=== PATIENT | female | born 1950 | race Caucasian/White ===

== ENCOUNTER 2020-11-03 18:16 | Inpatient (IN) | payer MEDICARE, SELFPAY ==
[2020-11-03] VITALS (8 sets, daily range): BP systolic 92–118; BP diastolic 45–80; PULSE 66–95; RESP 14–18; TEMP 36.6–36.8; O2SAT 95–100; BMI 28.8
--- NOTE | ~2020-11-03 | XR_ITS ---
EXAMINATION: XR shoulder RT min 2V DATE: 11/05/2020 17:19 INDICATION: TECHNIQUE: AP internally and externally rotated, AP oblique externally rotated and transscapular Y vi ews of the right shoulder were obtained. COMPARISON: None FINDINGS: There is mild cephalad subluxation of the right humeral head resulting in narrowing of the subacromia l space to <2 mm on one of the frontal projections consistent with rotator cuff tear. This likely chr onic given the reciprocal remodeling along the undersurface of the acromion and cephalad aspect of th e humeral head which appears slightly flattened with subarticular sclerosis and cystic change. Modera te-sized marginal osteophytes along the inferior aspect of the humeral head and at the glenoid. There are also moderate-sized subacromial spurs. Moderate right acromioclavicular osteoarthritis. Suggesti on of loose osteochondral bodies at the deep subscapular recess. No fracture.Small right lung volume with opacities at the lung bases which could represent atelectasis and/or pneumonia. Partially visual ized cardiac pacemaker leads at the superior vena cava. IMPRESSION: Right rotator cuff arthropathy with severe glenohumeral osteoarthritis. Reviewed, dictated and finalized at location A. ARCH INVESTIGATOR
--- NOTE | ~2020-11-03 | XR_ITS ---
XR chest 1V portable 11/03/2020 18:59 Indication: Patient unresponsive. Respiratory distress. Procedure: AP view of the chest Comparison: No prior studies for comparison. Findings: Elevated right diaphragm. Cardiomegaly. Pacemaker leads in expected position. No focal air space disease, pulmonary edema, pleural effusion or suspected pneumothorax. Impression: 1: No acute cardiopulmonary disease. Reviewed, dictated and finalized at location A. UTER CUSTOMER SUPPORT SPECIALIST Impression: 1: No acute cardiopulmonary disease.
--- NOTE | ~2020-11-03 | CT_ITS ---
EXAMINATION: CT BRAIN W/O DATE: 11/03/2020 19:06 INDICATION: Patient unresponsive. TECHNIQUE: Computed tomography (CT) of the head was performed without intravenous contrast. The dose- length product was 605.33 mGy-cm. COMPARISON: No prior studies for comparison. FINDINGS: Study limited by motion artifact. Normal brain parenchymal volume for age. Normal johnson-whit e differentiation. No acute intracranial hemorrhage, infarction, mass or mass effect. No ventriculomegaly or midline shift. Midline sagittal images demonstrate a normal corpus callosum, c raniovertebral junction and sella turcica. Basilar cisterns are patent. There is mucosal thickening of the maxillary, sphenoid and ethmoid sinuses. Mastoids are pneumatized. IMPRESSION: 1. No acute intracranial abnormality. 2: Moderate sinusitis. Reviewed, dictated and finalized at location A. ICE CLINICAL MARKETER
--- NOTE | ~2020-11-03 | US_ITS ---
US right upper quadrant 11/04/2020 11:08 Indication: Gallbladder distention. Elevated alkaline phosphatase. Procedure: High-resolution Limited abdominal ultrasound Comparison: No prior studies for comparison. Findings: There are gallstones. No gallbladder wall thickening or pericholecystic fluid. There is gal lbladder sludge. No significant biliary dilatation. CBD measures 3.4 mm. There is antegrade flow in t he portal vein. The pancreas and liver within normal limits. IVC and abdominal aorta within normal li mits. There is right renal atrophy. Small right renal cysts are noted. Impression: 1: Gallbladder contains stones and sludge. If there is concern for cholecystitis, consider correlatio n with nuclear hepatobiliary scan. Reviewed, dictated and finalized at location B. UCTION PACKAGER Impression: 1: Gallbladder contains stones and sludge. If there is concern for cholecystiti s, consider correlation with nuclear hepatobiliary scan.
--- NOTE | ~2020-11-03 | CT_ITS ---
EXAMINATION: CT abdomen pelvis wo con DATE: 11/03/2020 21:16 INDICATION: Possible pelvic fracture. Abdomen pain. TECHNIQUE: Computed tomography (CT) of the abdomen and pelvis was performed without intravenous contr ast. The dose-length product was 1243.83 mGy-cm. Automated exposure control and iterative reconstruct ion technique were employed. COMPARISON: None. FINDINGS: Lung bases are unremarkable. No pleural or pericardial effusion. Cardiomegaly. Gallbladder is distended and contains high density material which may represent sludge or stones. There are multi ple low-density lesions in both kidneys, not adequately characterized without contrast. Consider wen elation with ultrasound. Right kidney is atrophic. There is a nonobstructing right renal stone. Nonob structive bowel gas pattern. There is a left common iliac vein stent. There is Be catheter present in the bladder. There are bilateral sacral insufficiency fractures. Moderate lumbar spondylosis with grade 1 degenerative spondylolisthesis at L4-5. IMPRESSION: 1. Bilateral sacral insufficiency fractures. 2: Dilated gallbladder containing dependent high density material which may represent sludge or stone s. 3: Nonobstructing right nephrolithiasis. Reviewed, dictated and finalized at location A. UNTS OFFICER IMPRESSION: 1. Bilateral sacral insufficiency fractures. 2: Dilated gallbladder containing dependent high density material which may rep resent sludge or stones. 3: Nonobstructing right nephrolithiasis.
--- NOTE | 2020-11-03 18:20 | ECG_ITS ---
Measurements Intervals [place] Rate: 80 P: 107 UT: 162 QRS: -13 QRSD: 104 T: 2 QT: 389 QTc: 450 Interpretive Statements ELECTRONIC ATRIAL PACEMAKER BORDERLINE T WAVE ABNORMALITY- INFERIOR LEADS BASELINE WANDER- II, III BORDERLINE ECG Electronically Signed On 11-04-2020 6:59:36 NAMED ACCOUNT EXECUTIVE by Telly Pollack D.O.
[2020-11-03 18:37] LABS: Alveolar/Arterial O2 Gradient 6.1 mmHg; Base Excess ABG -3.5 mEq/l (+/-2.0); Fractional Inspired Oxygen 21 %; HCO3 ABG 20.3 mEq/l (22.0-26.0); Oxygen Content ABG 14.5 %vol (16.0-22.0); Oxyhemoglobin 96.8 % THb (90.0-100.0); PCO2 ABG 32.2 mmHg (35.0-45.0); PO2 ABG 105.1 mmHg (80.0-100.0); Total Hemoglobin 10.5 g/dL (12.0-18.0); pH ABG 7.417 (7.350-7.450)
[2020-11-03] MEDS: SODIUM CHLORIDE 0.9% IV 1,000 ML 999 ML IV CONT ×2 (18:37→19:57)
--- NOTE | 2020-11-03 18:37 | PC.NURSE ---
fluids continued from EMS
[2020-11-03 18:38] LABS: Device ROOM AIR; Modified Allen's Test Pass; Site Drawn LEFT RADIAL
[2020-11-03 18:43] LABS: Basophils Percent Auto 0.3 % (0.2-1.2); Eosinophils Absolute Auto 0.2 K/mm3 (0-0.3); Eosinophils Percent Auto 2.5 % (0-4.4); Hematocrit 31.1 % (37.0-47.0); Hemoglobin 9.6 g/dL (12.0-15.0); Immature Granulocyte Absolute 0.02 K/mm3 (0.00-0.031); Immature Granulocyte Percent A 0.3 % (0-0.5); Lymphocytes Absolute Auto 1.01 K/mm3 (0.9-3.2); Lymphocytes Percent Auto 13.5 % (18.3-44.2); Mean Corpuscular HGB Conc 30.9 g/dl (32-36); Mean Corpuscular Hemoglobin 31.7 pg (26-34); Mean Corpuscular Volume 102.6 fl (80-100); Mean Platelet Volume 10.2 fl (7.4-10.4); Monocytes Absolute Auto 0.5 K/mm3 (0.1-0.6); Monocytes Percent Auto 7.2 % (2.6-8.5); Neutrophils Absolute Auto 5.7 K/mm3 (1.3-6.7); Neutrophils Percent Auto 76.2 % (45.5-73.1); Platelet Count Result 312 k/mm3 (150-375); Red Blood Count 3.03 M/mm3 (4.2-5.4); Red Cell Distribution Width 15.2 % (11.5-14.5); White Blood Count 7.5 K/mm3 (4.5-10.0)
[2020-11-03 18:44] LABS: Glucose Point of Care 88 (65-105)
[2020-11-03 18:53] LABS: INR 1.2; Prothrombin Time 15.9 Seconds (11.1-14.7)
[2020-11-03 18:54] LABS: Lactic Acid Reflex 0.9 mmol/L (0.7-2.1); Partial Thromboplastin Time 30.6 SECONDS (22.3-36.8)
[2020-11-03 18:55] LABS: Alanine Aminotransferase 15 U/L (4-35); Albumin Level 3.5 g/dL (3.5-5.1); Alkaline Phosphatase 170 U/L (38-126); Anion Gap 8 mmol/L (8-16); Aspartate Amino Transferase 25 U/L (14-36); Bilirubin,Total 0.4 mg/dL (0.2-1.3); Blood Urea Nitrogen 52 mg/dL (7-17); Calcium 8.9 mg/dL (8.4-10.2); Carbon Dioxide 25 mmol/L (22-30); Chloride 111 mmol/L (98-107); Estimated Glomerular Filt Rate 28; Glucose 96 mg/dL (65-105); Potassium 4.8 mmol/L (3.4-5.0); Sodium 144 mmol/L (137-145)
--- NOTE | 2020-11-03 18:56 | ED.AMS ---
HPI - Altered Mental Status General Chief Complaint: Altered Mental Status Stated Complaint: unresponsive Time Seen by Provider: 11/03/20 18:20 Source: family (son) and EMS Mode of arrival: EMS Limitations: clinical condition History of Present Illness HPI narrative: This patient is a 70 year old female with history of restless leg syndrome who presents from [facility] for evaluation of unresponsiveness. Patient was released to [place] 3 days ago from [place]. Her son is at bedside to provide history. He states patient has been having alot of back pain so she went to [facility] 1 week ago. She was found to have urinary retention, sciatica and pelvic fractures. He states she was kept in the hospital for a few days. She has been taking tramadol and hydrocodone 10 mg for pain at the [place] [facility]. EMS reports patient was last normal at noon today. Nursing staff reported patient was unresponsive to them. She was started on these pain medications 3 days ago. On EMS arrival patient, had slow respirations and unresponsive. EMS gave patient 2 mg narcan and she became responsive to pain. Related Data Home Medications Medication Instructions Recorded Confirmed albuterol sulfate [Ventolin HFA] 2 puff INHALATION QID PRN 11/03/20 alendronate 70 mg PO WEEKLY 11/03/20 apixaban 5 mg PO HS 11/03/20 atorvastatin 40 mg PO HS 11/03/20 baclofen 20 mg PO TID 11/03/20 bisacodyl 10 mg RECTAL DAILY PRN 11/03/20 calcium carbonate-vitamin D3 1 tablet PO DAILY 11/03/20 ciprofloxacin HCl 500 mg PO Q12H 11/03/20 cyclobenzaprine 10 mg PO TID 11/03/20 fluticasone propionate [Flovent 1 puff INHALATION Q12H 11/03/20 HFA] furosemide 20 mg PO DAILY 11/03/20 gabapentin 300 mg PO TID 11/03/20 gemfibrozil 600 mg PO BID 11/03/20 glucosamine sulfate 500 mg PO DAILY 11/03/20 hydrocodone-acetaminophen 1 tablet PO Q6H PRN 11/03/20 ketorolac 10 mg PO Q6H PRN 11/03/20 losartan 50 mg PO DAILY 11/03/20 magnesium citrate [Citroma] 150 ml PO DAILY PRN 11/03/20 magnesium hydroxide [Milk of 15 ml PO DAILY PRN 11/03/20 Magnesia] raloxifene [Evista] 60 mg PO DAILY 11/03/20 sodium phosphates [Fleet Enema] 118 ml RECTAL ONCE 11/03/20 ticagrelor 90 mg PO Q12H 11/03/20 tramadol 50 mg PO Q6H PRN 11/03/20 Allergies Allergy/AdvReac Type Severity Reaction Status Date / Time SAM Inhibitors Allergy Unknown Verified 11/03/20 18:25 erythromycin base Allergy Unknown Verified 11/03/20 18:25 sulfamethizole Allergy Unknown Verified 11/03/20 18:25 Review of Systems Review of Systems: ROS unobtainable: Yes unobtainable due to mental status [facility] Past Medical History Medical History (Updated 11/03/20 @ 23:34 by Sloane Hay MD) Asthma Atrial fibrillation On chronic anticoagulation with Eliquis Essential hypertension Hyperlipidemia Hypertension Hypertriglyceridemia Post-menopausal osteoporosis Social History Social History Gender identity (if verbalized by the patient): Female Exam Const: General: ill appearing Limitations: altered mental status HENMT: Head: normocephalic and atraumatic Face and sinus: face symmetric and dry mucous membranes Mouth: Yes dry mucous membranes Eyes: Pupils: Equal, round and reactive pupils present EOM: EOMs intact bilaterally Resp: Effort & Inspection: normal respiratory effort and no retractions Auscultation: clear to auscultation bilaterally Cardio: Rate: regular rate Rhythm: regular rhythm Heart sounds: no murmurs GI: GI Palp: Yes Soft to palpation, No Tenderness to palpation present (GI) and No Guarding due to palpation present (GI) Auscultation: normal bowel sounds Neuro: General: moves all extremities Other: Patient will look at you when call her name. She appears to be in pain Extrem: Other: moves all extremities Course Reevaluation(s) Reevaluation #1: PAtient's son is at bedside. I discussed patient will be admitted. She will not answer questions but she is
[2020-11-03 19:06] LABS: Troponin I 0.017 ng/mL (0.000-0.034)
[2020-11-03 19:09] LABS: Acetaminophen < 10 ug/mL (10-30); Ammonia < 9 umol/L (9-30); Ethanol < 10 mg/dL (<10)
[2020-11-03 19:34] LABS: Add Urine Microscopic? YES; Appearance Urine Cloudy (Clear); Bacteria Urine Trace /hpf; Bilirubin Urine Negative (Negative); Blood Urine Negative (Negative); Color Urine Yellow (Yellow); Glucose Urine UA Negative (Negative); Hyaline Casts Urine 30-49 /lpf; Ketones Urine Negative (Negative); Leukocyte Esterase Ur Negative LEU/UL (Negative); Mucus Urine Rare /lpf; Nitrate Urine Negative (Negative); Protein Urine 1+ mg/dL (Negative); RBC Urine 0-2 /hpf (0-2); Specific Grav Ur 1.016 (1.001-1.035); Squamous Epithelial Cell Urine Moderate /hpf (Few); Urobilinogen Urine Negative mg/dL (<2.0)
[2020-11-03 19:52] LABS: Amphetamine Screen Urine Negative (Negative); Barbiturate Screen Urine Negative (Negative); Benzodiazepines Screen Urine Negative (Negative); Cannabinoid Screen Urine Negative (Negative); Cocaine Screen Urine Negative (Negative); Methadone Screen Urine Negative (Negative); Opiate Screen Urine Positive (Negative); Phencyclidine Screen Urine Negative (Negative)
--- NOTE | 2020-11-03 21:08 | PC.NURSE ---
pt to CT at this time
--- NOTE | 2020-11-03 23:13 | PM.IMHP ---
H&P: HPI History of Present Illness Date/Time: 11/03/20 23:13 Chief Complaint: Altered mental status Narrative: Arin Mcmillan is a 70 year old female On chronic anticoagulation, hypertension, osteoporosis and recent sacral insufficiency fractures due to fall who presented to the ER via EMS from [facility] due to altered mental status. The patient was found lying in bed unresponsive to pain. Her last known well well was around 10:00 a.m.. The patient had recently been started on tramadol, baclofen, [place] 10, Flexeril and Neurontin and Toradol due to sacral insufficiency fractures and sciatica. The patient had been started on tramadol 50 mg on 10/16/2020, Flexeril 10/17/2020, Medrol Dosepak 10/20/2020, [place] 5/325 10/20/2020, Neurontin 300 mg t.i.d. 10/22/2019 an baclofen 20 mg q.8 hours scheduled from 10/25/2020. [facility] at the to October and was discharged to [facility] about 3 days ago. When she was discharged from was was clear she was discharged with all of the above medications. The patient's son told the ER staff that when he called his mother the night before she seemed to be hallucinating. He mention this to the long-term staff but did not receive much of response. When patient arrived to the ER she was having what appeared to be agonal respirations. The patient received 2 mg of Narcan with improved responses. She was responding to painful stimuli in the ER. When I arrived at her bedside for evaluation the patient was noted to have prolonged episodes of apnea. She was having 15-20 second apneic episodes. She would awake briefly to loud verbal stimuli and provide one-word answers. She knew her name and the current month but thought the year was 2011. The next time she woke up she perseverated on it being 2011. After multiple attempts she did tell me that she has history of obstructive sleep apnea but did not tell me if she wore CPAP. I ordered an additional dose of Narcan 1 mg as patient was having continued apneas and given her degree of somnolence. An order was placed for stat CPAP. With auto titrating CPAP patient had reached maximum values on the CPAP machine. When the CPAP was maximized the patient did and was quite agitated and crying out in trying to remove the CPAP but she was not coordinated enough to reach the CPAP. Her speech was intermittently garbled. The patient was crying out in pain at this point after and Narcan had been administered. Patient was no longer having any other apneic episodes and CPAP was placed on hold. The patient remains awake and is moaning and restless. She is still confused. She is unable to tell me where she is having pain. The patient had urinary retention during her hospitalization at [facility]. She was found to have urinary retention on arrival to the ER as well. Be catheter was placed. Review of Systems Review of Systems: ROS unobtainable: Yes unobtainable due to medical condition (Toxic encephalopathy) [facility] Past Medical History Medical History (Updated 11/04/20 @ 01:23 by Libra Garcia DO) Asthma Atrial fibrillation On chronic anticoagulation with Eliquis CHF (congestive heart failure) Essential hypertension Hyperlipidemia Hypertension Hypertriglyceridemia Post-menopausal osteoporosis Surgical History Surgical History (Updated 11/04/20 @ 01:31 by Libra Garcia DO) History of permanent cardiac pacemaker placement History of shoulder surgery Left shoulder Family History Family History (Updated 11/04/20 @ 01:22 by Libra Garcia DO) Other Unknown family medical history Social History Social History (Updated 11/03/20 @ 23:34 by Libra Garcia DO) Social History: Primary care physician: Dr. Mario Gama Code status: Full code per EMR Gender identity (if verbalized by the patient): Female Meds Home Medications and Allergies Home Medications Medication Instructions Recorded Confirmed
[2020-11-04] VITALS (13 sets, daily range): BP systolic 125–133; BP diastolic 44–62; PULSE 65–84; RESP 15–24; TEMP 36.2–36.7; O2SAT 92–100; BMI 28.8
[2020-11-04] MEDS: NALOXONE HCL 0.4 MG/ML VIAL IV PUSH
--- NOTE | 2020-11-04 00:39 | PCRCNOTE ---
CALLED TO PT ROOM BY DR LEE FOR PT APNEIC SPELLS. ATTEMPTED AUTOPAP UP TO 20CMWP SO DR LEE ORDERED BIPAP STARTING AT 07/01 R14. PT WAS ALSO GIVEN NARCAN, AFTER WHICH PT BECAME VERY AGITATED. BIPAP HELD UNTIL PT BECOMES CALM. GIOVANI THOMAS WILL NOTIFY RESPIRATORY AT THAT TIME.
[2020-11-04] MEDS: SODIUM CHLORIDE 0.9% IV 1,000 ML 100 ML IV CONT ×3 (02:56→20:20)
[2020-11-04 06:20] LABS: Basophils Percent Auto 0.1 % (0.2-1.2); Eosinophils Absolute Auto 0.1 K/mm3 (0-0.3); Hematocrit 26.8 % (37.0-47.0); Hemoglobin 8.1 g/dL (12.0-15.0); Immature Granulocyte Absolute 0.03 K/mm3 (0.00-0.031); Immature Granulocyte Percent A 0.4 % (0-0.5); Lymphocytes Absolute Auto 0.61 K/mm3 (0.9-3.2); Lymphocytes Percent Auto 7.6 % (18.3-44.2); Mean Corpuscular HGB Conc 30.2 g/dl (32-36); Mean Corpuscular Hemoglobin 31.2 pg (26-34); Mean Corpuscular Volume 103.1 fl (80-100); Mean Platelet Volume 10.6 fl (7.4-10.4); Monocytes Absolute Auto 0.4 K/mm3 (0.1-0.6); Monocytes Percent Auto 5.1 % (2.6-8.5); Neutrophils Absolute Auto 6.9 K/mm3 (1.3-6.7); Neutrophils Percent Auto 85.8 % (45.5-73.1); Platelet Count Result 252 k/mm3 (150-375); Red Cell Distribution Width 14.9 % (11.5-14.5)
[2020-11-04 06:33] LABS: Alanine Aminotransferase 14 U/L (4-35); Albumin Level 2.9 g/dL (3.5-5.1); Alkaline Phosphatase 163 U/L (38-126); Anion Gap 5 mmol/L (8-16); Aspartate Amino Transferase 23 U/L (14-36); Bilirubin,Total 0.3 mg/dL (0.2-1.3); Blood Urea Nitrogen 47 mg/dL (7-17); Calcium 7.8 mg/dL (8.4-10.2); Carbon Dioxide 23 mmol/L (22-30); Chloride 116 mmol/L (98-107); Estimated CRCL calculation 37 ml/min; Estimated Glomerular Filt Rate 40; Glucose 86 mg/dL (65-105); Potassium 4.3 mmol/L (3.4-5.0); Sodium 144 mmol/L (137-145)
--- NOTE | 2020-11-04 07:51 | ADMGEN ---
This patient, Arin Mcmillan, was admitted to [facility] Surg Room 307-01. Patient/family oriented to hospital policies and general routines including ID bracelet, bed and alarms, visiting hours, pain management, procedures, bathroom and other care routines, personal items, smoking policy, room service/diet, and visiting hours. Information on how to activate the Rapid Response Team has been discussed. Patient/Family are encouraged to report perceived risks to care and to ask questions if they do not understand what they are told or what they should do. Patient arrived on the floor, oriented to self only. She was non-conversational and the only question she answered was when she was asked to state her name. She appeared moderately agitated groaning loudly and moving her limbs. Her eyes were fixed in an upward position behind her upper eyelids. She was observed to have apnea's as long as 15 seconds. Hospitalist requested an additional dose of narcan which appeared to increase her agitation. Respiratory was called and she put her on an auto BiPap, this increased her agitation to the point where her breathing and groaning were at a more regular pattern. Approximately 1 hour later, she went back to a zoran carrion breathing pattern. BiPAP was placed again which appeared to reduce the length and frequency of her apnea's. Opioids and sedatives were avoided to reduce sedation. Patient's groaning and movement of her arms and legs were reduced on the second attempt. She did not appear to be completely at rest though with repositioning, she appeared to be much more calm and appeared to be sleeping in short intervals through the night.
[2020-11-04] MEDS: LIDOCAINE 5% PATCH 2 PATCH TRANSDERM (09:32)
--- NOTE | 2020-11-04 09:42 | PM.IMPN ---
Progress Note: A&P Assessment and Plan (1) Encephalopathy acute: Code(s): G93.40 - Encephalopathy, unspecified Status: Acute Assessment and Plan: Patient recently hospitalized for pain and is on consider amount of sedating medication. She was transferred to a rehab facility where she was found unresponsive last night. Patient did receive Narcan with improved response. Patient was noted to have apneic episodes and so BiPAP was started. Her ABG on admission however was normal on room air. CT of the brain showing moderate sinusitis but otherwise no acute findings. Urine drug screen positive for opiates. She does have acute kidney injury probably pre renal and low hemoglobin but otherwise no other acute findings. Chest x-ray and UA were clear. CT of the abdomen pelvis did show the sacral insufficiency fracture and dilated gallbladder. Overall, feel sepsis less likely. Patient remains unresponsive. Will monitor off of the BiPAP today. Elevate the head of the bed. NPO. Consider MRI if she does not improve clinically. Check TSH. Check RUQ (2) Acute renal failure: Code(s): N17.9 - Acute kidney failure, unspecified Status: Acute Assessment and Plan: BUN 52 and creatinine 1.8 on admission. With IV fluids her creatinine has dropped to 1.3. She is on Lasix and losartan on presentation which could have contributed to her acute kidney injury. Suspect she has not been eating very much as well. Continue to monitor. (3) Opiate overdose: Code(s): T40.601A - Poisoning by unspecified narcotics, accidental (unintentional), initial encounter Status: Acute Assessment and Plan: Patient's urine drug screen positive for opiates. She was on [place] 10 mg tablets at the rehab facility. She did respond to Narcan. Continue supportive care at this time. (4) Baclofen overdose: Code(s): T42.8X1A - Poisoning by antiparkinsonism drugs and other central muscle-tone depressants, accidental (unintentional), initial encounter Status: Acute Assessment and Plan: As above. Continue supportive care. (5) Polypharmacy: Code(s): Z79.899 - Other intermediate (current) drug therapy Status: Acute Assessment and Plan: Will need to readjust her medications once she becomes well. Oral medications on hold until she becomes more awake and alert. (6) Sacral insufficiency fracture: Code(s): M84.48XA - Pathological fracture, other site, initial encounter for fracture Status: Acute Assessment and Plan: Confirmed by CT scan on admission. Further evaluation and treatment on hold at this time. (7) Macrocytic anemia: Code(s): D53.9 - Nutritional anemia, unspecified Status: Acute Assessment and Plan: Hemoglobin 9.6 on admission. She was probably hemoconcentrated as well. With IV fluids, hemoglobin has dropped to 8.1. She has macrocytosis. Will add B12 level. Continue to monitor (8) DVT prophylaxis: Code(s): Z29.9 - Encounter for prophylactic measures, unspecified Status: Acute Assessment and Plan: Lovenox; Resume Eliquis when able. Additional Plan Toxic encephalopathy due to polypharmacy with opiates and muscle relaxers and Neurontin. Baclofen toxicity canned appear similar to brain and has a long washout interval. Most of her sedating medications will be held. Will resume tramadol for 7-10 pain but will hold [place] Flexeril baclofen and Toradol. The total be held due to the patient's renal failure. Patient can't have IV Tylenol and lidocaine patches as needed for pain. Patient does have some renal insufficiency noted on labs. We do not have prior values available for comparison so it is unknown at this is acute or chronic. Will give IV fluid hydration and repeat BMP in a.m.. Subjective Date/time seen: 11/04/20 09:42 Interval history: Date of service 11/04 70yo female with HTn, cAFib and
[2020-11-04] MEDS: ENOXAPARIN 40 MG/0.4 ML SYRINGE SUB-Q (11:34)
[2020-11-04 13:50] LABS: Folic Acid > 20.0 ng/mL (2.76->20)
[2020-11-05] VITALS (19 sets, daily range): BP systolic 102–143; BP diastolic 46–69; PULSE 70–145; RESP 18–28; TEMP 36.5–37.2; O2SAT 93–97
[2020-11-05 06:51] LABS: Basophils Percent Auto 0.1 % (0.2-1.2); Eosinophils Percent Auto 0.3 % (0-4.4); Hematocrit 27.5 % (37.0-47.0); Hemoglobin 8.4 g/dL (12.0-15.0); Immature Granulocyte Absolute 0.05 K/mm3 (0.00-0.031); Immature Granulocyte Percent A 0.4 % (0-0.5); Lymphocytes Absolute Auto 0.76 K/mm3 (0.9-3.2); Lymphocytes Percent Auto 6.6 % (18.3-44.2); Mean Corpuscular HGB Conc 30.5 g/dl (32-36); Mean Corpuscular Hemoglobin 31.7 pg (26-34); Mean Corpuscular Volume 103.8 fl (80-100); Mean Platelet Volume 10.9 fl (7.4-10.4); Monocytes Absolute Auto 0.5 K/mm3 (0.1-0.6); Monocytes Percent Auto 4.7 % (2.6-8.5); Neutrophils Absolute Auto 10.1 K/mm3 (1.3-6.7); Neutrophils Percent Auto 87.9 % (45.5-73.1); Platelet Count Result 263 k/mm3 (150-375); Red Blood Count 2.65 M/mm3 (4.2-5.4); Red Cell Distribution Width 15.1 % (11.5-14.5); White Blood Count 11.5 K/mm3 (4.5-10.0)
[2020-11-05 07:11] LABS: Alanine Aminotransferase 11 U/L (4-35); Albumin Level 2.9 g/dL (3.5-5.1); Alkaline Phosphatase 144 U/L (38-126); Anion Gap 8 mmol/L (8-16); Aspartate Amino Transferase 25 U/L (14-36); Bilirubin,Total 0.4 mg/dL (0.2-1.3); Blood Urea Nitrogen 36 mg/dL (7-17); Calcium 8.7 mg/dL (8.4-10.2); Carbon Dioxide 18 mmol/L (22-30); Chloride 121 mmol/L (98-107); Estimated CRCL calculation 59 ml/min; Estimated Glomerular Filt Rate > 60; Glucose 70 mg/dL (65-105); Magnesium 1.8 mg/dL (1.6-2.3); Phosphorus 2.8 mg/dL (2.5-4.5); Sodium 147 mmol/L (137-145)
[2020-11-05] MEDS: SODIUM CHLORIDE 0.9% IV 1,000 ML 75 ML IV CONT ×2 (07:47→20:35)
[2020-11-05 07:51] LABS: CRP 15.9 mg/dL (<1.0)
[2020-11-05] MEDS: LIDOCAINE 5% PATCH 2 PATCH TRANSDERM (08:26)
[2020-11-05] MEDS: ENOXAPARIN 40 MG/0.4 ML SYRINGE SUB-Q (08:26)
--- NOTE | 2020-11-05 09:33 | PCPTNOTE ---
Initiated PT eval. Pt agitated and combative. Resists all movements. Will try again at later time.
--- NOTE | 2020-11-05 09:34 | PCOTNOTE ---
OT evaluation attempted. Patient combative and aggressive at this time. Will attempt OT evaluation at later time when appropriate.
--- NOTE | 2020-11-05 12:35 | PCOTNOTE ---
OT evaluation attempted this PM. Patient still confused, resistive, and aggressive toward therapist. Patient yelling no no no and swatting. RN notified. Will attempt OT evaluation tomorrow as appropriate.
--- NOTE | 2020-11-05 13:18 | PCPTNOTE ---
Attempted PT eval. Pt refusing, saying no, no, no. Will try again tomorrow.
--- NOTE | 2020-11-05 13:46 | PM.IMPN ---
Progress Note: A&P Assessment and Plan (1) Encephalopathy acute: Code(s): G93.40 - Encephalopathy, unspecified Status: Acute Assessment and Plan: Probably related to polypharmacy dehydration associated with acute renal failure Patient was given Narcan with improvement Avoid narcotic Avoid benzo (2) Acute renal failure: Code(s): N17.9 - Acute kidney failure, unspecified Status: Acute Assessment and Plan: Treated with IV hydration improved. (3) Opiate overdose: Code(s): T40.601A - Poisoning by unspecified narcotics, accidental (unintentional), initial encounter Status: Acute Assessment and Plan: Patient's urine drug screen positive for opiates. She was on [place] 10 mg tablets at the rehab facility. She did respond to Narcan. Continue supportive care at this time. (4) Baclofen overdose: Code(s): T42.8X1A - Poisoning by antiparkinsonism drugs and other central muscle-tone depressants, accidental (unintentional), initial encounter Status: Acute Assessment and Plan: Supportive care. (5) Polypharmacy: Code(s): Z79.899 - Other terminologist (current) drug therapy Status: Acute Assessment and Plan: Will adjust medication once patient condition improved (6) Sacral insufficiency fracture: Code(s): M84.48XA - Pathological fracture, other site, initial encounter for fracture Status: Acute Assessment and Plan: Confirmed by CT scan on admission. Further evaluation and treatment on hold at this time. (7) Macrocytic anemia: Code(s): D53.9 - Nutritional anemia, unspecified Status: Acute Assessment and Plan: Hemoglobin 9.6 on admission. She was probably hemoconcentrated as well. With IV fluids, hemoglobin has dropped to 8.1. She has macrocytosis. (8) DVT prophylaxis: Code(s): Z29.9 - Encounter for prophylactic measures, unspecified Status: Acute Assessment and Plan: Lovenox; Resume Eliquis when able. Additional Plan Toxic encephalopathy due to polypharmacy with opiates and muscle relaxers and Neurontin. Baclofen toxicity Will resume tramadol for 7-10 pain but will hold [place] Flexeril baclofen and Toradol. Right shoulder pain and tenderness will get x-ray of the right shoulder. Subjective Date/time seen: 11/05/20 13:46 Interval history: Patient seen and examined Patient feels weak complaining of shoulder pain Patient denies fever headache chest I am seeing the patient for altered mental status Exam Narrative: Exam Narrative: Alert Chest decreased air entry bilateral Abdomen nontender nondistended CVS S1 + S2 Right shoulder tenderness Objective Data Vital Signs Vital Signs: Vital Signs - 24 hr 11/04/20 14:00 11/04/20 16:00 11/04/20 20:00 Temperature 97.1 F L Pulse Rate 70 73 84 Respiratory Rate 24 H Blood Pressure 126/48 L Pulse Oximetry 99 11/04/20 22:00 11/05/20 00:00 11/05/20 01:49 Temperature 98.1 F Pulse Rate 78 82 84 Respiratory Rate 18 19 Blood Pressure 125/44 L Pulse Oximetry 96 93 11/05/20 04:00 11/05/20 06:00 11/05/20 08:00 Temperature 97.7 F Pulse Rate 84 82 82 Respiratory Rate 22 H 20 Blood Pressure 143/62 H Pulse Oximetry 97 97 Intake/Output Intake/Output: Intake & Output 11/02/20 11/03/20 11/04/20 11/05/20 23:59 23:59 23:59 23:59 Intake Total 2050 1000 Output Total 1150 550 Balance 900 450 Meds/Results Medications: Active Medications Generic Name Dose Route Start Last Admin Trade Name Carlosq PRN Reason Stop Dose Admin Enoxaparin Sodium 40 mg 11/04/20 10:20 11/05/20 08:26 Enoxaparin 40 Mg/0.4 Ml Syringe SUB-Q 40 mg DAILY JAYANT Administration Gemfibrozil 600 mg 11/04/20 08:00 11/04/20 09:29 Gemfibrozil 600 Mg Tablet PO Not Given BIDWM JAYANT Sodium Chloride 1,000 mls @ 70 mls/hr 11/04/20 01:35 11/05/20 07:47 Normal Saline Iv
--- NOTE | 2020-11-05 13:53 | ECG_ITS ---
Measurements Intervals [place] Rate: 144 P: VA: 0 QRS: 14 QRSD: 120 T: 40 QT: 300 QTc: 465 Interpretive Statements ATRIAL FIBRILLATION WITH RAPID VENTRICULAR RESPONSE INTRAVENTRICULAR CONDUCTION DELAY DELAYED PRECORDIAL R/S TRANSITION NONSPECIFIC ST & T-WAVE ABNORMALITY- INF/HIGH LAT LEADS BASELINE ARTIFACT- V4 ABNORMAL ECG Electronically Signed On 11-05-2020 15:18:43 PRICING SUPERVISOR by Telly Pollack D.O.
[2020-11-05] MEDS: METOPROLOL TARTRATE INJ 5 MG/5 ML VIAL IV PUSH (14:09)
[2020-11-05] MEDS: SODIUM CHLORIDE 0.9% IV 500 ML IV CONT ×2 (14:10→16:37)
[2020-11-05 14:40] LABS: Magnesium 1.9 mg/dL (1.6-2.3)
[2020-11-05 14:47] LABS: Troponin I 0.072 ng/mL (0.000-0.034)
[2020-11-05] MEDS: AMIODARONE 150 MG/D5W 100 ML 150 MG/100 ML BAG 600 MG IV CONT (16:39)
[2020-11-05] MEDS: AMIODARONE 360 MG/D5W 200 ML 360 MG/200 ML BAG 33.33 MG IV CONT (16:39)
--- NOTE | 2020-11-05 16:42 | PC.NURSE ---
appprox 1400 Dr. Galarza was called because pt hr became elevated and rhythm converted from SR to A-ffib with RVR. BP initialy was 110/60. 500ml NS bolus was given and Metoprolol 5mg IVP. Revevaluated vitals, No change in HR. Doctor was called again. EKG was done and confirm Afifb/RVR completed. 2nd bolus 500ml NS was given. Doctor said he was going to transfer pt to IMU for Amiodorone Drip. Report was given to Lilli. Pt was transfered. Tolerated well.
--- NOTE | 2020-11-05 17:05 | ECG_ITS ---
Measurements Intervals [place] Rate: 81 P: 143 MN: 178 QRS: -3 QRSD: 98 T: 4 QT: 393 QTc: 458 Interpretive Statements ELECTRONIC ATRIAL PACEMAKER BASELINE ARTIFACT- I, II, AVR, AVL, V6 BORDERLINE T WAVE ABNORMALITY- INFERIOR LEADS BORDERLINE ECG Electronically Signed On 11-06-2020 10:54:17 RESTRIKE HAMMER OPERATOR by Telly Pollack D.O.
[2020-11-05 17:31] LABS: Troponin I 0.082 ng/mL (0.000-0.034)
--- NOTE | 2020-11-05 17:57 | PM.CNCAR ---
Assessment and Plan Assessment and plan (1) Atrial fibrillation with RVR: Code(s): I48.91 - Unspecified atrial fibrillation Status: Acute Assessment and Plan: Patient had episode of AFib RVR, apparently not very symptomatic. Possible history of the same per EMR and [facility] notes, although patient's son was not familiar with this diagnosis. She is also not on any rate controlling agents at [facility]. She has converted to sinus rhythm on IV amiodarone. Minimal elevation of troponins due to AFib and underlying CAD. No DC. Will add metoprolol and discontinue amiodarone in the morning. Continue Eliquis. (2) CAD (coronary artery disease): Code(s): I25.10 - Atherosclerotic heart disease of [place] coronary artery without angina pectoris Status: Acute Assessment and Plan: History of CAD and 2 stents placed sometime last year, on Brilinta. Apparently has some untreated lesions as well. CAD appears stable. Resume Brilinta and atorvastatin. (3) Encephalopathy acute: Code(s): G93.40 - Encephalopathy, unspecified Status: Acute Assessment and Plan: Encephalopathy due to polypharmacy which appears to be clearing. (4) History of permanent cardiac pacemaker placement: Code(s): Z95.0 - Presence of cardiac pacemaker Status: Inactive Assessment and Plan: Pacemaker placed, apparently sometime in 2019, normal function by tele monitoring. (5) Macrocytic anemia: Code(s): D53.9 - Nutritional anemia, unspecified Status: Acute Assessment and Plan: Noted to be anemic, follow. She is currently taking Eliquis and Brilinta. If we need to stop 1 agent, would stop the Eliquis and keep the Brilinta (or change to Plavix) to protect her stents which were put in some time in the last year. History of Present Illness History of Present Illness Consult date/time: 11/05/20 17:57 Requesting physician: Liam Kelsey M.A., MD Consult reason: atrial fibrillation Reason For Visit: encephalopathy,adverse reaction to pain medication Narrative: Arin Mcmillan is a 70-year-old female who has been residing at [facility] whom I was asked to see at the request of the hospitalist for my advice and opinion regarding her AFib RVR, in consultation. She was found unresponsive and brought to our emergency room on November 03. This may have been partly due to the narcotics she was receiving for pain, and responded to [place] though she remains confused. She has been somnolent and confused but improving, but went into AFib RVR today. She was transferred to IMU and given IV digoxin, metoprolol, and started on amiodarone drip and subsequently has converted to sinus rhythm. She apparently has not been taking her p.o. medications well because of her altered mental status, but is not on any rate controlling agents. She carries a history of atrial fibrillation on Eliquis, CAD with 2 stents in the past year, CHF, dual chamber pacemaker, a leaky valve, hypertension, hyperlipidemia. Her regular soaping machine back tender is Dr. Manjinder Bueno in [facility]. She is thought to have encephalopathy due to polypharmacy. She also was found to have acute renal failure and macrocytic anemia. Patient is not able to provide a clear history and much of the history was obtained from the EMR and also the patient's son, Ernst Mcmillan, by phone. Apparently she is usually alert and oriented although not well educated. Review of Systems Constitutional: Constitution
[2020-11-05] MEDS: METOPROLOL TARTRATE 25 MG TABLET PO (20:36)
[2020-11-05] MEDS: TICAGRELOR 90 MG TABLET PO (20:36)
[2020-11-05] MEDS: APIXABAN 5 MG TABLET PO (20:36)
[2020-11-05 20:51] LABS: Troponin I 0.432 ng/mL (0.000-0.034)
[2020-11-05] MEDS: AMIODARONE 360 MG/D5W 200 ML 360 MG/200 ML BAG 16.67 MG IV CONT (23:56)
[2020-11-06] VITALS (20 sets, daily range): BP systolic 120–150; BP diastolic 42–100; PULSE 63–148; RESP 18–28; TEMP 36.3–36.6; O2SAT 93–99; BMI 10.0
[2020-11-06] MEDS: LIDOCAINE 5% PATCH 2 PATCH TRANSDERM (08:03)
[2020-11-06] MEDS: SODIUM CHLORIDE 0.9% IV 1,000 ML 100 ML IV CONT ×2 (08:09→20:38)
[2020-11-06] MEDS: TICAGRELOR 90 MG TABLET PO ×2 (08:10→20:34)
[2020-11-06] MEDS: GABAPENTIN 300 MG CAPSULE PO ×3 (08:10→17:14)
[2020-11-06] MEDS: METOPROLOL TARTRATE 25 MG TABLET PO (08:10)
--- NOTE | 2020-11-06 12:24 | PM.IMPN ---
Progress Note: A&P Assessment and Plan (1) Encephalopathy acute: Code(s): G93.40 - Encephalopathy, unspecified Status: Acute Assessment and Plan: Probably related to polypharmacy dehydration associated with acute renal failure Patient was given Narcan with improvement Avoid narcotic Avoid benzo (2) Acute renal failure: Code(s): N17.9 - Acute kidney failure, unspecified Status: Acute Assessment and Plan: Treated with IV hydration improved. (3) Opiate overdose: Code(s): T40.601A - Poisoning by unspecified narcotics, accidental (unintentional), initial encounter Status: Acute Assessment and Plan: Patient's urine drug screen positive for opiates. She was on [place] 10 mg tablets at the rehab facility. She did respond to Narcan. Continue supportive care at this time. (4) Baclofen overdose: Code(s): T42.8X1A - Poisoning by antiparkinsonism drugs and other central muscle-tone depressants, accidental (unintentional), initial encounter Status: Acute Assessment and Plan: Supportive care. (5) Polypharmacy: Code(s): Z79.899 - Other intermodal dispatcher (current) drug therapy Status: Acute Assessment and Plan: Will adjust medication once patient condition improved (6) Sacral insufficiency fracture: Code(s): M84.48XA - Pathological fracture, other site, initial encounter for fracture Status: Acute Assessment and Plan: Confirmed by CT scan on admission. Further evaluation and treatment on hold at this time. (7) Macrocytic anemia: Code(s): D53.9 - Nutritional anemia, unspecified Status: Acute Assessment and Plan: Hemoglobin 9.6 on admission. She was probably hemoconcentrated as well. With IV fluids, hemoglobin has dropped to 8.1. She has macrocytosis. (8) DVT prophylaxis: Code(s): Z29.9 - Encounter for prophylactic measures, unspecified Status: Acute Assessment and Plan: Lovenox; Resume Eliquis when able. (9) Atrial fibrillation with RVR: Code(s): I48.91 - Unspecified atrial fibrillation Status: Acute Assessment and Plan: Patient developed episode of AFib with RVR during hospitalization it seems that patient has history of AFib and past continue Eliquis treated with amiodarone plan to switch to oral metoprolol follow CBC CMP and magnesium Additional Plan Toxic encephalopathy due to polypharmacy with opiates and muscle relaxers and Neurontin. Baclofen toxicity Will resume tramadol for 7-10 pain but will hold [place] Flexeril baclofen and Toradol. Right shoulder pain and tenderness arthritis and rotator cuff injury on x-ray pain control. Subjective Date/time seen: 11/06/20 12:24 Interval history: Patient seen and examined Patient feels weak shoulder pain has improved Overnight she developed AFib with RVR treated with amiodarone drip cardiology was consulted Patient denies fever headache chest I am seeing the patient for altered mental status Exam Narrative: Exam Narrative: Alert Chest decreased air entry bilateral Abdomen nontender nondistended CVS S1 + S2 Right shoulder tenderness Objective Data Vital Signs Vital Signs: Vital Signs - 24 hr 11/05/20 13:57 11/05/20 14:00 11/05/20 14:09 Temperature 99.0 F Pulse Rate 145 H 137 H 145 H Respiratory Rate 22 H Blood Pressure 106/60 106/60 Pulse Oximetry 97 11/05/20 16:00 11/05/20 16:39 11/05/20 16:53 Temperature Pulse Rate 143 H 136 H Respiratory Rate Blood Pressure 102/63 Pulse Oximetry 95 11/05/20 17:03 11/05/20 17:12 11/05/20 17:50 Temperature 98.4 F Pulse Rate 79 78 76 Respiratory Rate 22 H Blood Pressure 137/69 Pulse Oximetry 96 11/05/20 19:54 11/05/20 20:00 11/05/20 20:36 Temperature 97.7 F Pulse Rate 75 93 75 Respiratory Rate 28 H 18 Blood Pressure 108/46 L Pulse Oximetry 94 95 11/05/20 22:00 11/06/20 0
[2020-11-06 13:07] LABS: Basophils Percent Auto 0.2 % (0.2-1.2); Eosinophils Percent Auto 0.3 % (0-4.4); Hematocrit 27.8 % (37.0-47.0); Hemoglobin 8.6 g/dL (12.0-15.0); Immature Granulocyte Absolute 0.03 K/mm3 (0.00-0.031); Immature Granulocyte Percent A 0.3 % (0-0.5); Lymphocytes Absolute Auto 0.58 K/mm3 (0.9-3.2); Lymphocytes Percent Auto 5.8 % (18.3-44.2); Mean Corpuscular HGB Conc 30.9 g/dl (32-36); Mean Corpuscular Hemoglobin 32.3 pg (26-34); Mean Corpuscular Volume 104.5 fl (80-100); Mean Platelet Volume 10.7 fl (7.4-10.4); Monocytes Absolute Auto 0.4 K/mm3 (0.1-0.6); Neutrophils Absolute Auto 8.9 K/mm3 (1.3-6.7); Neutrophils Percent Auto 89.4 % (45.5-73.1); Platelet Count Result 258 k/mm3 (150-375); Red Blood Count 2.66 M/mm3 (4.2-5.4); Red Cell Distribution Width 15.2 % (11.5-14.5); White Blood Count 9.9 K/mm3 (4.5-10.0)
[2020-11-06 13:14] LABS: Alanine Aminotransferase 12 U/L (4-35); Albumin Level 2.9 g/dL (3.5-5.1); Alkaline Phosphatase 149 U/L (38-126); Anion Gap 5 mmol/L (8-16); Aspartate Amino Transferase 23 U/L (14-36); Bilirubin,Total 0.2 mg/dL (0.2-1.3); Blood Urea Nitrogen 32 mg/dL (7-17); Calcium 8.8 mg/dL (8.4-10.2); Carbon Dioxide 21 mmol/L (22-30); Chloride 125 mmol/L (98-107); Estimated CRCL calculation 59 ml/min; Estimated Glomerular Filt Rate > 60; Glucose 85 mg/dL (65-105); Potassium 3.9 mmol/L (3.4-5.0); Sodium 151 mmol/L (137-145)
[2020-11-06 13:23] LABS: Magnesium 1.6 mg/dL (1.6-2.3)
--- NOTE | 2020-11-06 20:27 | PM.PNCARD ---
Progress Note: A&P Assessment and Plan (1) Atrial fibrillation with RVR: Code(s): I48.91 - Unspecified atrial fibrillation Status: Acute Assessment and Plan: Patient with paroxysmal AFib RVR, apparently not very symptomatic. Will resume IV amiodarone Will increase metoprolol to: 50 mg b.i.d. Continue Eliquis. (2) CAD (coronary artery disease): Code(s): I25.10 - Atherosclerotic heart disease of [place] coronary artery without angina pectoris Status: Acute Assessment and Plan: History of CAD and 2 stents placed sometime last year, on Brilinta. Apparently has some untreated lesions as well. Minimal elevation of troponins due to AFib and underlying CAD. No [place]. CAD appears stable. Cont Brilinta and atorvastatin. (3) Encephalopathy acute: Code(s): G93.40 - Encephalopathy, unspecified Status: Acute Assessment and Plan: Encephalopathy due to polypharmacy which appears improved although patient is still hallucinating. (4) History of permanent cardiac pacemaker placement: Code(s): Z95.0 - Presence of cardiac pacemaker Status: Inactive Assessment and Plan: Biotron[place] Pacemaker placed, April 2020 for sinus node dysfunction, normal function by tele monitoring. (5) Macrocytic anemia: Code(s): D53.9 - Nutritional anemia, unspecified Status: Acute Assessment and Plan: Noted to be anemic, follow. She is currently taking Eliquis and Brilinta. If we need to stop 1 agent, would stop the Eliquis and keep the Brilinta (or change to Plavix) to protect her stents which were put in some time in the last year. Subjective Date/time seen: 11/06/20 20:27 Interval history: Follow-up for paroxysmal atrial fibrillation, coronary disease, pacemaker and encephalopathy. Date of service: 11/06/2020 patient has been hallucinating off and on through the day, sometimes cooperative and sometimes not. This evening she was upset and went back and AFib RVR which has not responded to her metoprolol 25 mg p.o.. Review of Systems Constitutional: Constitutional: Denies lethargy Cardiovascular: Cardiovascular: Denies chest pain, Denies pedal edema, Denies leg edema, Denies lightheadedness and Denies palpitations Respiratory: Respiratory: Denies cough, Denies dyspnea and Denies dyspnea on exertion Gastrointestinal: Gastrointestinal: Denies abdominal pain Genitourinary: Genitourinary: Denies hematuria Musculoskeletal: Musculoskeletal: Reports arthralgias Neurologic: Reports confusion Psychiatric: Psychiatric: Reports behavioral changes Exam Narrative: Exam Narrative: On my arrival, the patient is having an animated conversation with no one. Said she was talking to her son. Const: General: comfortable and no acute distress HENMT: General nose exam: no epistaxis Mouth: Yes moist mucous membranes Eyes: EOM: EOMs intact bilaterally Neck: Neck: supple Resp: Effort & Inspection: normal respiratory effort Auscultation: clear to auscultation bilaterally Cardio: Rate: tachycardic Rhythm: abnormal rhythm irregularly irregular GI: Inspection: non-distended GI Palp: Yes Soft to palpation and No Firmness to palpation present (GI) Skin: General skin exam: normal color and no rashes or lesions noted Neuro: Cognition (Neuro): abnormal cognition Speech: normal speech Extrem: General: no edema and no pedal edema Psych: Thought content: Yes Hallucination(s) present Objective Data Vital Signs Vital Signs: Vital Signs - 24 hr 11/05/20 20:36 11/05/20 22:00 11/06/20 00:00 Temperature 97.7 F Pulse Rate 75 74
[2020-11-06] MEDS: APIXABAN 5 MG TABLET PO (20:34)
[2020-11-06] MEDS: AMIODARONE 150 MG/D5W 100 ML 150 MG/100 ML BAG 600 MG IV CONT (20:35)
[2020-11-06] MEDS: METOPROLOL TARTRATE 50 MG TAB PO (20:36)
[2020-11-06] MEDS: METOPROLOL TARTRATE INJ 5 MG/5 ML VIAL IV PUSH (20:36)
[2020-11-06] MEDS: AMIODARONE 360 MG/D5W 200 ML 360 MG/200 ML BAG 33.33 MG IV CONT (20:36)
[2020-11-06 22:34] LABS: SARS-CoV-2 RNA PCR Negative
--- NOTE | 2020-11-06 22:36 | PC.NURSE ---
called mega that pt converted back after the amio bolus completed. she said to stop gtt at 0800.
[2020-11-07] VITALS (16 sets, daily range): BP systolic 107–145; BP diastolic 53–76; PULSE 63–107; RESP 18–22; TEMP 36.2–36.7; O2SAT 95–99
[2020-11-07] MEDS: AMIODARONE 360 MG/D5W 200 ML 360 MG/200 ML BAG 16.67 MG IV CONT (02:23)
[2020-11-07] MEDS: SODIUM CHLORIDE 0.9% IV 1,000 ML 100 ML IV CONT (06:04)
[2020-11-07] MEDS: GABAPENTIN 300 MG CAPSULE PO ×3 (09:45→16:37)
[2020-11-07] MEDS: METOPROLOL TARTRATE 50 MG TAB PO ×2 (09:45→21:07)
[2020-11-07] MEDS: TICAGRELOR 90 MG TABLET PO ×2 (09:45→21:07)
[2020-11-07] MEDS: LIDOCAINE 5% PATCH 2 PATCH TRANSDERM (09:46)
--- NOTE | 2020-11-07 12:19 | PM.IMPN ---
Progress Note: A&P Assessment and Plan (1) Encephalopathy acute: Code(s): G93.40 - Encephalopathy, unspecified Status: Acute Assessment and Plan: Probably related to polypharmacy dehydration associated with acute renal failure Patient was given Narcan with improvement Avoid narcotic Avoid benzo (2) Acute renal failure: Code(s): N17.9 - Acute kidney failure, unspecified Status: Acute Assessment and Plan: Treated with IV hydration improved. (3) Opiate overdose: Code(s): T40.601A - Poisoning by unspecified narcotics, accidental (unintentional), initial encounter Status: Acute Assessment and Plan: Patient's urine drug screen positive for opiates. She was on [place] 10 mg tablets at the rehab facility. She did respond to Narcan. Continue supportive care at this time. (4) Baclofen overdose: Code(s): T42.8X1A - Poisoning by antiparkinsonism drugs and other central muscle-tone depressants, accidental (unintentional), initial encounter Status: Acute Assessment and Plan: Supportive care. (5) Polypharmacy: Code(s): Z79.899 - Other supervisor intermediates (current) drug therapy Status: Acute Assessment and Plan: Will adjust medication once patient condition improved (6) Sacral insufficiency fracture: Code(s): M84.48XA - Pathological fracture, other site, initial encounter for fracture Status: Acute Assessment and Plan: Confirmed by CT scan on admission. Further evaluation and treatment on hold at this time. (7) Macrocytic anemia: Code(s): D53.9 - Nutritional anemia, unspecified Status: Acute Assessment and Plan: Hemoglobin 9.6 on admission. She was probably hemoconcentrated as well. With IV fluids, hemoglobin has dropped to 8.1. She has macrocytosis. (8) DVT prophylaxis: Code(s): Z29.9 - Encounter for prophylactic measures, unspecified Status: Acute Assessment and Plan: Resume Eliquis (9) Atrial fibrillation with RVR: Code(s): I48.91 - Unspecified atrial fibrillation Status: Acute Assessment and Plan: Patient developed episode of AFib with RVR during hospitalization it seems that patient has history of AFib and past continue Eliquis treated with amiodarone oral metoprolol follow CBC CMP and magnesium (10) Hypernatremia: Code(s): E87.0 - Hyperosmolality and hypernatremia Status: Acute Assessment and Plan: Developed during hospitalization started D5 half-normal saline at the rate of 75 Additional Plan Acute metabolic Toxic encephalopathy due to polypharmacy with opiates and muscle relaxers and Neurontin. Baclofen toxicity Will resume tramadol for 7-10 pain but will hold [place] Flexeril baclofen and Toradol. Right shoulder pain and tenderness arthritis and rotator cuff injury on x-ray pain control. Subjective Date/time seen: 11/07/20 12:19 Interval history: Patient seen and examined Patient feels weak shoulder pain has improved 11/05/20 patient developed AFib with RVR treated with amiodarone drip cardiology was consulted Echo pending Patient has intermittent confusion sodium is 151 Patient denies fever headache chest I am seeing the patient for altered mental status Exam Narrative: Exam Narrative: Alert Chest decreased air entry bilateral Abdomen nontender nondistended CVS S1 + S2 Right shoulder tenderness Objective Data Vital Signs Vital Signs: Vital Signs - 24 hr 11/06/20 14:00 11/06/20 15:46 11/06/20 16:00 Temperature 97.9 F Pulse Rate 66 72 67 Respiratory Rate 18 Blood Pressure 146/62 H Pulse Oximetry 99 94 11/06/20 18:00 11/06/20 18:52 11/06/20 20:00 Temperature 97.4 F L Pulse Rate 69 148 H 139 H Respiratory Rate 22 H Blood Pressure 150/100 H Pulse Oximetry 97 94 11/06/20 20:10 11/06/20 20:35 11/06/20 20:36 Temperature Pulse Rate 74 140 H 140 H Respi
[2020-11-07 12:46] LABS: Basophils Percent Auto 0.1 % (0.2-1.2); Eosinophils Absolute Auto 0.1 K/mm3 (0-0.3); Eosinophils Percent Auto 1.2 % (0-4.4); Hematocrit 30.4 % (37.0-47.0); Hemoglobin 9.3 g/dL (12.0-15.0); Immature Granulocyte Absolute 0.03 K/mm3 (0.00-0.031); Immature Granulocyte Percent A 0.4 % (0-0.5); Lymphocytes Absolute Auto 0.79 K/mm3 (0.9-3.2); Lymphocytes Percent Auto 10.6 % (18.3-44.2); Mean Corpuscular HGB Conc 30.6 g/dl (32-36); Mean Corpuscular Hemoglobin 31.8 pg (26-34); Mean Corpuscular Volume 104.1 fl (80-100); Mean Platelet Volume 10.8 fl (7.4-10.4); Monocytes Absolute Auto 0.4 K/mm3 (0.1-0.6); Neutrophils Absolute Auto 6.2 K/mm3 (1.3-6.7); Neutrophils Percent Auto 82.7 % (45.5-73.1); Platelet Count Result 288 k/mm3 (150-375); Red Blood Count 2.92 M/mm3 (4.2-5.4); Red Cell Distribution Width 15.1 % (11.5-14.5); White Blood Count 7.4 K/mm3 (4.5-10.0)
[2020-11-07 12:59] LABS: Ammonia < 9 umol/L (9-30)
[2020-11-07 13:06] LABS: Alanine Aminotransferase 13 U/L (4-35); Albumin Level 3.1 g/dL (3.5-5.1); Alkaline Phosphatase 156 U/L (38-126); Anion Gap 8 mmol/L (8-16); Aspartate Amino Transferase 24 U/L (14-36); Bilirubin,Total 0.3 mg/dL (0.2-1.3); Blood Urea Nitrogen 28 mg/dL (7-17); Calcium 8.7 mg/dL (8.4-10.2); Carbon Dioxide 16 mmol/L (22-30); Chloride 125 mmol/L (98-107); Estimated CRCL calculation 59 ml/min; Estimated Glomerular Filt Rate > 60; Glucose 83 mg/dL (65-105); Potassium 4.2 mmol/L (3.4-5.0); Sodium 149 mmol/L (137-145)
[2020-11-07] MEDS: DEXTROSE 5%/0.45% SOD CHL 1,000 ML 75 ML IV CONT (13:32)
--- NOTE | 2020-11-07 14:09 | PCSTNOTE ---
Please refer to the Bedside Swallow Evaluation in the EMR. Please note, silent aspiration cannot be ruled out at bedside.
--- NOTE | 2020-11-07 14:46 | PM.PNCARD ---
Progress Note: A&P Assessment and Plan (1) Atrial fibrillation with RVR: Code(s): I48.91 - Unspecified atrial fibrillation Status: Acute Assessment and Plan: Patient with paroxysmal AFib RVR, not very symptomatic. Increased metoprolol to: 50 mg b.i.d. Now when she is in AFib her heart rate runs about 105-110 beats per minute which seems reasonable. Continue Eliquis. Continue current therapy. If she develops significant rapid ventricular response may need to consider sotalol or amiodarone long-term. (2) CAD (coronary artery disease): Code(s): I25.10 - Atherosclerotic heart disease of [place] coronary artery without angina pectoris Status: Acute Assessment and Plan: History of CAD and 2 stents placed sometime last year, on Brilinta. Apparently has some untreated lesions as well. Minimal elevation of troponins due to AFib and underlying CAD. No [place]. CAD appears stable. Cont Brilinta and atorvastatin. (3) Encephalopathy acute: Code(s): G93.40 - Encephalopathy, unspecified Status: Acute Assessment and Plan: Encephalopathy and hallucinations due to polypharmacy which is improving. (4) History of permanent cardiac pacemaker placement: Code(s): Z95.0 - Presence of cardiac pacemaker Status: Inactive Assessment and Plan: Biotronik Pacemaker placed, April 2020 for sinus node dysfunction, normal function by tele monitoring. (5) Macrocytic anemia: Code(s): D53.9 - Nutritional anemia, unspecified Status: Acute Assessment and Plan: Noted to be anemic, follow. Hematocrit stable. She is currently taking Eliquis and Brilinta. If we need to stop 1 agent, would stop the Eliquis and keep the Brilinta (or change to Plavix) to protect her stents which were put in some time in the last year. Subjective Date/time seen: 11/07/20 14:46 Interval history: Follow-up for paroxysmal atrial fibrillation, coronary disease, pacemaker and encephalopathy. Date of service: 11/06/2020: Patient has been hallucinating off and on through the day, sometimes cooperative and sometimes not. This evening she was upset and went back and AFib RVR which has not responded to her metoprolol 25 mg p.o. IV amiodarone resumed overnight, converted to sinus rhythm Date of service 11/07/2020: Had another episode AFib RVR this afternoon, asymptomatic, spontaneously went back to sinus rhythm. No complaints, hallucinating LEs. Review of Systems Constitutional: Constitutional: Reports fatigue, Denies lethargy and Reports weakness Eyes: Eyes: Reports no additional eye complaints ENT: Denies nasal congestion Cardiovascular: Cardiovascular: Denies chest pain, Denies pedal edema, Denies leg edema, Denies lightheadedness, Denies palpitations, Denies dyspnea and Denies dyspnea on exertion Respiratory: Respiratory: Denies cough, Denies dyspnea and Denies dyspnea on exertion Gastrointestinal: Gastrointestinal: Denies abdominal pain, Denies hematochezia, Denies nausea and Denies vomiting Genitourinary: Genitourinary: Denies hematuria Musculoskeletal: Musculoskeletal: Reports back pain and Reports arthralgias Integumentary/Breasts: Skin/Breast: Denies rash Neurologic: Reports behavioral changes, Reports confusion and Reports weakness Psychiatric: Psychiatric: Reports behavioral changes and Reports confusion Endocrine: Endocrine: Reports fatigue and Denies palpitations Exam Narrative: Exam Narrative: More alert and relevant conversation today. Const: General: comfortable, no acute distress and confusion Orientation/consciousness: con
--- NOTE | 2020-11-07 15:14 | ECHO_ITS ---
Patient Info Name: Arin Mcmillan Age: 70 years : 1950 Gender: Female Ht: 65 in Wt: 173 lbs BSA: 1.92 m2 HR: 64 bpm BP: 120 / 59 mmHg Heart Rhythm: Sinus Rhythm Technical Quality: Good Exam Date: 11/07/2020 8:58 AM Exam Location: [facility] Pulmonary Exam Room: 203 Patient Status: Inpatient Admit Date: 11/04/2020 Staff Ordering Physician: Liam Kelsey M.A., MD Auto Driver: Stephanie Ko RDCS Attending Provider: Libra Garcia DO Referring Physician: Domenic HARKINS; Exam Type: CA echo doppler color flow Study Info Indications - afib rvr PPM Complete two-dimensional, color flow and Doppler transthoracic echocardiogram is performed. Summary 1. Complete two-dimensional, color flow and Doppler transthoracic echocardiogram is performed. 2. Normal left ventricular size and thickness with good contractility of all segments and no focal wall motion abnormalities very. Dysfunction is noted. 3. Left atrial chamber dimension is severely enlarged. 4. There is mild to moderate aortic valve regurgitation. 5. The mitral valve has extremely calcified annulus and thickened leaflets which restrict flow. There is moderate mitral valve stenosis. Mean gradient 5.1 m/sec, aortic valve area 1.7 cm2. 6. There is moderate mitral valve regurgitation. 7. There is mild tricuspid valve stenosis. 8. Mild pulmonary hypertension, estimated pulmonary arterial systolic pressure is 45 mmHg. 9. Dilated inferior vena cava with <50% collapse upon inspiration consistent with elevated right atrial pressure, 10 mmHg. 10. Normal sinus rhythm. Left Ventricle Left ventricular chamber dimension is normal. Left ventricular systolic function is normal, estimated at >70%. There is no increased left ventricular wall thickness. Left ventricular septal wall motion is normal. The left ventricular diastolic function is grade II diastolic dysfunction. Right Ventricle Right ventricular chamber dimension is normal. Right ventricular systolic function is normal. Linear artifact in right ventricle suggestive of catheter(s), pacemaker lead(s), or ICD lead(s). Left Atria Left atrial chamber dimension is severely enlarged. Right Atria Right atrial chamber dimension is normal. Aortic Valve The aortic valve is trileaflet. There is mild aortic valve sclerosis. There is no aortic valve stenosis. There is mild to moderate aortic valve regurgitation. Pulmonic Valve The pulmonic valve is normal. There is no pulmonic valve stenosis. There is no pulmonic regurgitation. Mitral Valve The mitral valve has calcified annulus. The mitral valve has extremely calcified annulus and thickened leaflets which restrict flow. There is moderate mitral valve stenosis. Mean gradient 5.1 m/sec, aortic valve area 1.7 cm2. There is moderate mitral valve regurgitation. Tricuspid Valve The tricuspid valve leaflets are normal. There is mild tricuspid valve stenosis. There is no tricuspid valve regurgitation. Mild pulmonary hypertension, estimated pulmonary arterial systolic pressure is 45 mmHg. Pericardium/Pleural The pericardium appears normal. There is no pericardial effusion. Inferior Vena Cava Dilated inferior vena cava with <50% collapse upon inspiration consistent with elevated right atrial pressure, 10 mmHg. Aorta The aortic root size at the sinus of Valsalva is normal. The prox ascending aorta size is normal. Left Ventricular Outflow Tract
[2020-11-07] MEDS: APIXABAN 5 MG TABLET PO (21:07)
[2020-11-08] VITALS (13 sets, daily range): BP systolic 104–151; BP diastolic 56–80; PULSE 63–78; RESP 18–24; TEMP 36.1–36.4; O2SAT 94–100
[2020-11-08] MEDS: DEXTROSE 5%/0.45% SOD CHL 1,000 ML 75 ML IV CONT (02:21)
[2020-11-08 05:19] LABS: Basophils Percent Auto 0.2 % (0.2-1.2); Eosinophils Absolute Auto 0.1 K/mm3 (0-0.3); Eosinophils Percent Auto 1.8 % (0-4.4); Hematocrit 27.5 % (37.0-47.0); Hemoglobin 8.4 g/dL (12.0-15.0); Immature Granulocyte Absolute 0.01 K/mm3 (0.00-0.031); Immature Granulocyte Percent A 0.2 % (0-0.5); Lymphocytes Absolute Auto 0.66 K/mm3 (0.9-3.2); Lymphocytes Percent Auto 13.1 % (18.3-44.2); Mean Corpuscular HGB Conc 30.5 g/dl (32-36); Mean Corpuscular Hemoglobin 31.8 pg (26-34); Mean Corpuscular Volume 104.2 fl (80-100); Mean Platelet Volume 11.2 fl (7.4-10.4); Monocytes Absolute Auto 0.4 K/mm3 (0.1-0.6); Monocytes Percent Auto 7.6 % (2.6-8.5); Neutrophils Absolute Auto 3.9 K/mm3 (1.3-6.7); Neutrophils Percent Auto 77.1 % (45.5-73.1); Platelet Count Result 250 k/mm3 (150-375); Red Blood Count 2.64 M/mm3 (4.2-5.4); Red Cell Distribution Width 15.2 % (11.5-14.5)
[2020-11-08 05:31] LABS: Alanine Aminotransferase 12 U/L (4-35); Albumin Level 2.7 g/dL (3.5-5.1); Alkaline Phosphatase 136 U/L (38-126); Anion Gap 5 mmol/L (8-16); Aspartate Amino Transferase 23 U/L (14-36); Bilirubin,Total 0.3 mg/dL (0.2-1.3); Blood Urea Nitrogen 30 mg/dL (7-17); Carbon Dioxide 21 mmol/L (22-30); Chloride 121 mmol/L (98-107); Estimated CRCL calculation 59 ml/min; Estimated Glomerular Filt Rate > 60; Glucose 108 mg/dL (65-105); Potassium 4.1 mmol/L (3.4-5.0); Sodium 147 mmol/L (137-145)
[2020-11-08] MEDS: LIDOCAINE 5% PATCH 2 PATCH TRANSDERM (08:54)
[2020-11-08] MEDS: METOPROLOL TARTRATE 50 MG TAB PO ×2 (08:54→20:39)
[2020-11-08] MEDS: GABAPENTIN 300 MG CAPSULE PO ×3 (08:54→16:33)
[2020-11-08] MEDS: TICAGRELOR 90 MG TABLET PO ×2 (08:54→20:39)
--- NOTE | 2020-11-08 11:20 | PM.IMPN ---
Progress Note: A&P Assessment and Plan (1) Encephalopathy acute: Code(s): G93.40 - Encephalopathy, unspecified Status: Acute Assessment and Plan: Probably related to polypharmacy dehydration associated with acute renal failure Patient was given Narcan with improvement Avoid narcotic Avoid benzo resolved (2) Acute renal failure: Code(s): N17.9 - Acute kidney failure, unspecified Status: Acute Assessment and Plan: Treated with IV hydration improved. monitor BMP (3) Opiate overdose: Code(s): T40.601A - Poisoning by unspecified narcotics, accidental (unintentional), initial encounter Status: Acute Assessment and Plan: Patient's urine drug screen positive for opiates. She was on [place] 10 mg tablets at the rehab facility. She did respond to Narcan. Continue supportive care at this time. (4) Baclofen overdose: Code(s): T42.8X1A - Poisoning by antiparkinsonism drugs and other central muscle-tone depressants, accidental (unintentional), initial encounter Status: Acute Assessment and Plan: Supportive care. (5) Polypharmacy: Code(s): Z79.899 - Other care home (current) drug therapy Status: Acute Assessment and Plan: medication adjusted (6) Sacral insufficiency fracture: Code(s): M84.48XA - Pathological fracture, other site, initial encounter for fracture Status: Acute Assessment and Plan: Confirmed by CT scan on admission. PT OT evaluation. (7) Macrocytic anemia: Code(s): D53.9 - Nutritional anemia, unspecified Status: Acute Assessment and Plan: Hemoglobin 9.6 on admission. She was probably hemoconcentrated as well. With IV fluids, hemoglobin has dropped to 8.1. She has macrocytosis. monitor no evidence of acute bleeding (8) DVT prophylaxis: Code(s): Z29.9 - Encounter for prophylactic measures, unspecified Status: Acute Assessment and Plan: Resume Eliquis (9) Atrial fibrillation with RVR: Code(s): I48.91 - Unspecified atrial fibrillation Status: Acute Assessment and Plan: Patient developed episode of AFib with RVR during hospitalization it seems that patient has history of AFib and past continue Eliquis treated with amiodarone oral metoprolol follow CBC CMP and magnesium controlled (10) Hypernatremia: Code(s): E87.0 - Hyperosmolality and hypernatremia Status: Acute Assessment and Plan: Developed during hospitalization started D5 half-normal saline at the rate of 50 Subjective Date/time seen: 11/08/20 11:20 Interval history: Patient seen and examined Patient feels weak shoulder pain has improved 11/05/20 patient developed AFib with RVR treated with amiodarone drip cardiology was consulted Echo was done Patient has intermittent confusion sodium is 151 improved to 147 with D5 half-normal saline AFib controlled Patient denies fever headache chest I am seeing the patient for altered mental status Exam Narrative: Exam Narrative: Alert Chest decreased air entry bilateral Abdomen nontender nondistended CVS S1 + S2 Right shoulder tenderness Objective Data Vital Signs Vital Signs: Vital Signs - 24 hr 11/07/20 12:00 11/07/20 14:00 11/07/20 16:00 Temperature 97.9 F 98.1 F Pulse Rate 63 71 72 Respiratory Rate 22 H 22 H Blood Pressure 145/76 H 142/63 H Pulse Oximetry 98 98 11/07/20 18:00 11/07/20 20:00 11/07/20 20:05 Temperature 97.2 F L Pulse Rate 72 68 65 Respiratory Rate 18 20 Blood Pressure 109/58 L Pulse Oximetry 99 95 11/07/20 21:07 11/07/20 22:00 11/07/20 23:54 Temperature 97.3 F L Pulse Rate 74 69 66 Respiratory Rate 20 Blood Pressure 110/56 L Pulse Oximetry 98 11/08/20 00:00 11/08/20 02:00 11/08/20 04:00 Temperature 96.9 F L Pulse Rate 63 64 65 Respiratory Rate 24 H Blood Pressure 107/56 L Pulse Oximetry 94 11/08/20 06:00
--- NOTE | 2020-11-08 11:22 | PM.PNCARD ---
Progress Note: A&P Additional Plan 70-year-old woman with: Paroxysmal atrial fibrillation which we are managing with beta-amarjit and apixaban. She fortunately has a pacemaker and therefore will not become bradycardic. She is in an atrially paced rhythm at this time and is asymptomatic. I do not anticipate further adjustments in her antiarrhythmic regimen and her discharge any time in from the cardiovascular perspective is fine. She will follow up with her established petroleum laboratory technician after discharge therefore follow up with our office is not anticipated. Shad Tyler MD [facility] Subjective Date/time seen: Date of service: 11/08/20 11:22 Interval history: Follow-up for paroxysmal atrial fibrillation, coronary disease, pacemaker and encephalopathy. Date of service: 11/06/2020: Patient has been hallucinating off and on through the day, sometimes cooperative and sometimes not. This evening she was upset and went back and AFib RVR which has not responded to her metoprolol 25 mg p.o. IV amiodarone resumed overnight, converted to sinus rhythm Date of service 11/07/2020: Had another episode AFib RVR this afternoon, asymptomatic, spontaneously went back to sinus rhythm. No complaints, hallucinating LEs. Date of service 11/08/2020: Patient is asymptomatic regarding her cardiac status she is in an atrially paced rhythm no evidence of atrial fib at this time. She offers no cardiovascular complaints. Exam Narrative: Exam Narrative: More alert and relevant conversation today. Const: General: comfortable, no acute distress and confusion Orientation/consciousness: confusion HENMT: General nose exam: no epistaxis Mouth: Yes moist mucous membranes Eyes: EOM: EOMs intact bilaterally Neck: Neck: supple Thyroid: thyroid normal Carotids: no bruits Lymphatic: lymphadenopathy not noted Resp: Effort & Inspection: normal respiratory effort Auscultation: clear to auscultation bilaterally Cardio: Rate: regular rate and tachycardic Rhythm: abnormal rhythm irregularly irregular Heart sounds: Murmur heart sound present (2/6 JOHANA upper sternal borders and left sternal border) Other: Posterior tibial pulses intact, left dorsalis pedis pulse is present but right was not palpable. GI: Inspection: non-distended Skin: General skin exam: normal color and no rashes or lesions noted Neuro: General: confusion Cognition (Neuro): abnormal cognition Speech: normal speech Motor exam (neuro): Normal motor muscle tone present throughout Other: Oriented to [facility], day of the week. Extrem: General: no edema and no pedal edema Objective Data Vital Signs Vital Signs: Vital Signs - 24 hr 11/07/20 12:00 11/07/20 14:00 11/07/20 16:00 Temperature 36.6 C 36.7 C Pulse Rate 63 71 72 Respiratory Rate 22 H 22 H Blood Pressure 145/76 H 142/63 H Pulse Oximetry 98 98 11/07/20 18:00 11/07/20 20:00 11/07/20 20:05 Temperature 36.2 C L Pulse Rate 72 68 65 Respiratory Rate 18 20 Blood Pressure 109/58 L Pulse Oximetry 99 95 11/07/20 21:07 11/07/20 22:00 11/07/20 23:54 Temperature 36.3 C L Pulse Rate 74 69 66 Respiratory Rate 20 Blood Pressure 110/56 L Pulse Oximetry 98 11/08/20 00:00 11/08/20 02:00 11/08/20 04:00 Temperature 36.1 C L Pulse Rate 63 64 65 Respiratory Rate 24 H Blood Pressure 107/56 L Pulse Oximetry 94 11/08/20 06:00 11/08/20 08:00 11/08/20 10:00 Temperature 36.4 C L Pulse Rate 78 67 67 Respiratory Rate 22 H Blood Pressure 150/79 H Pulse Oximetry 99 11/08/20 10:28 Temperature Pulse Rate Respiratory Rate Blood Pressure Pulse Oximetry 95 Intake/Output Intake/Output: Intake & Output 11/05/20 11/06/20 11/07/20 11/08/20 23:59 23:59 23:59 23:59 Intake Total 2600 2240 2773 1320 Output Total 1150 1100 1400 400 Balance 1450 1140 1373 920 Meds/Results Medications: Active Medications Generic Name Dose Route Start Last Admin Trade Name Freq PRN
[2020-11-08] MEDS: DEXTROSE 5%/0.45% SOD CHL 1,000 ML 50 ML IV CONT (12:11)
--- NOTE | 2020-11-08 18:20 | PC.NURSE ---
This patient, Arin Mcmillan, was received from [facility] on 11/08/20 at 1820. Patient/family oriented to unit policies and routines
--- NOTE | 2020-11-08 18:42 | PC.NURSE ---
This patient, Arin Mcmillan, was transferred to [facility] on 11/08/20 at 1812. Personal belongings sent with patient. Report given to Axel. Appropriate documentation sent with patient.
[2020-11-08] MEDS: APIXABAN 5 MG TABLET PO (20:39)
[2020-11-09] VITALS (12 sets, daily range): BP systolic 104–117; BP diastolic 59–77; PULSE 56–77; RESP 18–20; TEMP 36.4–37; O2SAT 96–100
[2020-11-09] MEDS: ACETAMINOPHEN 325 MG TABLET 650 MG PO (05:41)
[2020-11-09 06:29] LABS: Basophils Percent Auto 0.3 % (0.2-1.2); Eosinophils Absolute Auto 0.1 K/mm3 (0-0.3); Eosinophils Percent Auto 3.6 % (0-4.4); Hematocrit 28.3 % (37.0-47.0); Hemoglobin 8.4 g/dL (12.0-15.0); Immature Granulocyte Absolute 0.02 K/mm3 (0.00-0.031); Immature Granulocyte Percent A 0.5 % (0-0.5); Lymphocytes Absolute Auto 0.74 K/mm3 (0.9-3.2); Lymphocytes Percent Auto 18.8 % (18.3-44.2); Mean Corpuscular HGB Conc 29.7 g/dl (32-36); Mean Corpuscular Hemoglobin 30.8 pg (26-34); Mean Corpuscular Volume 103.7 fl (80-100); Mean Platelet Volume 11.4 fl (7.4-10.4); Monocytes Absolute Auto 0.4 K/mm3 (0.1-0.6); Monocytes Percent Auto 9.6 % (2.6-8.5); Neutrophils Absolute Auto 2.7 K/mm3 (1.3-6.7); Neutrophils Percent Auto 67.2 % (45.5-73.1); Platelet Count Result 236 k/mm3 (150-375); Red Blood Count 2.73 M/mm3 (4.2-5.4); Red Cell Distribution Width 15.1 % (11.5-14.5); White Blood Count 3.9 K/mm3 (4.5-10.0)
[2020-11-09 06:43] LABS: Alanine Aminotransferase 11 U/L (4-35); Albumin Level 2.6 g/dL (3.5-5.1); Alkaline Phosphatase 127 U/L (38-126); Anion Gap 2 mmol/L (8-16); Aspartate Amino Transferase 19 U/L (14-36); Bilirubin,Total 0.2 mg/dL (0.2-1.3); Blood Urea Nitrogen 23 mg/dL (7-17); Carbon Dioxide 24 mmol/L (22-30); Chloride 118 mmol/L (98-107); Estimated CRCL calculation 67 ml/min; Estimated Glomerular Filt Rate > 60; Glucose 102 mg/dL (65-105); Potassium 4.2 mmol/L (3.4-5.0); Sodium 144 mmol/L (137-145)
[2020-11-09 06:52] LABS: Platelet Estimate Adequate (Adequate)
[2020-11-09 06:53] LABS: Ovalocytes 2+ (NORMAL); Polychromasia 1+ (NORMAL); Stomatocytes 1+ (NORMAL); Tear Drop Cells 1+ (NORMAL)
[2020-11-09] MEDS: LIDOCAINE 5% PATCH 2 PATCH TRANSDERM (08:53)
[2020-11-09] MEDS: GABAPENTIN 300 MG CAPSULE PO ×3 (08:54→17:09)
[2020-11-09] MEDS: METOPROLOL TARTRATE 50 MG TAB PO ×2 (08:54→20:01)
[2020-11-09] MEDS: TICAGRELOR 90 MG TABLET PO ×2 (08:55→20:03)
--- NOTE | 2020-11-09 09:46 | PM.IMPN ---
Progress Note: A&P Assessment and Plan (1) Encephalopathy acute: Code(s): G93.40 - Encephalopathy, unspecified Status: Acute Assessment and Plan: Probably related to polypharmacy dehydration associated with acute renal failure Patient was given Narcan with improvement Avoid narcotic Avoid benzo resolved (2) Acute renal failure: Code(s): N17.9 - Acute kidney failure, unspecified Status: Acute Assessment and Plan: Treated with IV hydration improved. monitor BMP (3) Opiate overdose: Code(s): T40.601A - Poisoning by unspecified narcotics, accidental (unintentional), initial encounter Status: Acute Assessment and Plan: Patient's urine drug screen positive for opiates. She was on [place] 10 mg tablets at the rehab facility. She did respond to Narcan. Continue supportive care at this time. (4) Baclofen overdose: Code(s): T42.8X1A - Poisoning by antiparkinsonism drugs and other central muscle-tone depressants, accidental (unintentional), initial encounter Status: Acute Assessment and Plan: Supportive care. (5) Polypharmacy: Code(s): Z79.899 - Other oysterman (current) drug therapy Status: Acute Assessment and Plan: medication adjusted (6) Sacral insufficiency fracture: Code(s): M84.48XA - Pathological fracture, other site, initial encounter for fracture Status: Acute Assessment and Plan: Confirmed by CT scan on admission. PT OT evaluation. (7) Macrocytic anemia: Code(s): D53.9 - Nutritional anemia, unspecified Status: Acute Assessment and Plan: Hemoglobin 9.6 on admission. She was probably hemoconcentrated as well. With IV fluids, hemoglobin has dropped to 8.1. She has macrocytosis. monitor no evidence of acute bleeding (8) DVT prophylaxis: Code(s): Z29.9 - Encounter for prophylactic measures, unspecified Status: Acute Assessment and Plan: Resume Eliquis (9) Atrial fibrillation with RVR: Code(s): I48.91 - Unspecified atrial fibrillation Status: Acute Assessment and Plan: Patient developed episode of AFib with RVR during hospitalization it seems that patient has history of AFib and past continue Eliquis treated with amiodarone oral metoprolol follow CBC CMP and magnesium controlled (10) Hypernatremia: Code(s): E87.0 - Hyperosmolality and hypernatremia Status: Acute Assessment and Plan: Developed during hospitalization started D5 half-normal saline at the rate of 50 Additional Plan Acute metabolic Toxic encephalopathy due to polypharmacy with opiates and muscle relaxers and Neurontin. Baclofen toxicity Will resume tramadol for 7-10 pain but will hold [place] Flexeril baclofen and Toradol. Right shoulder pain and tenderness arthritis and rotator cuff injury on x-ray pain control. repeat CBC CMP in a.m. start PT OT evaluation anticipate discharge in a.m. to rehab Subjective Date/time seen: 11/09/20 09:46 Interval history: Patient seen and examined Patient feels weak shoulder pain has improved 11/05/20 patient developed AFib with RVR treated with amiodarone drip cardiology was consulted Echo was done Patient has intermittent confusion sodium is 151 improved to 147 with D5 half-normal saline AFib better controlled PT OT evaluation Patient denies fever headache chest I am seeing the patient for altered mental status Exam Narrative: Exam Narrative: Alert Chest decreased air entry bilateral Abdomen nontender nondistended CVS S1 + S2 Right shoulder tenderness Objective Data Vital Signs Vital Signs: Vital Signs - 24 hr 11/08/20 10:00 11/08/20 10:28 11/08/20 12:00 Temperature 97.2 F L Pulse Rate 67 68 Respiratory Rate 20 Blood Pressure 151/80 H Pulse Oximetry 95 100 11/08/20 14:00 11/08/20 16:00 11/08/20 18:00 Temperature 97.4 F L Pulse Rate 68 71 66 Respirat
[2020-11-09] MEDS: APIXABAN 5 MG TABLET PO (20:03)
[2020-11-10] VITALS: PULSE 64
[2020-11-10 04:00] VITALS: PULSE 65
[2020-11-10 05:42] VITALS: BP 128/75; PULSE 66; RESP 18; TEMP 36.7; O2SAT 97
[2020-11-10 05:54] LABS: Basophils Percent Auto 0.2 % (0.2-1.2); Eosinophils Absolute Auto 0.2 K/mm3 (0-0.3); Eosinophils Percent Auto 4.2 % (0-4.4); Hemoglobin 8.6 g/dL (12.0-15.0); Immature Granulocyte Absolute 0.02 K/mm3 (0.00-0.031); Immature Granulocyte Percent A 0.5 % (0-0.5); Lymphocytes Absolute Auto 0.74 K/mm3 (0.9-3.2); Lymphocytes Percent Auto 17.4 % (18.3-44.2); Mean Corpuscular HGB Conc 30.7 g/dl (32-36); Mean Corpuscular Hemoglobin 31.7 pg (26-34); Mean Corpuscular Volume 103.3 fl (80-100); Mean Platelet Volume 11.5 fl (7.4-10.4); Monocytes Absolute Auto 0.4 K/mm3 (0.1-0.6); Monocytes Percent Auto 9.4 % (2.6-8.5); Neutrophils Absolute Auto 2.9 K/mm3 (1.3-6.7); Neutrophils Percent Auto 68.3 % (45.5-73.1); Platelet Count Result 247 k/mm3 (150-375); Red Blood Count 2.71 M/mm3 (4.2-5.4); Red Cell Distribution Width 14.9 % (11.5-14.5); White Blood Count 4.3 K/mm3 (4.5-10.0)
[2020-11-10 06:03] LABS: Alanine Aminotransferase 11 U/L (4-35); Albumin Level 2.5 g/dL (3.5-5.1); Alkaline Phosphatase 120 U/L (38-126); Anion Gap 0 mmol/L (8-16); Aspartate Amino Transferase 20 U/L (14-36); Bilirubin,Total 0.2 mg/dL (0.2-1.3); Blood Urea Nitrogen 18 mg/dL (7-17); Calcium 7.8 mg/dL (8.4-10.2); Carbon Dioxide 25 mmol/L (22-30); Chloride 115 mmol/L (98-107); Estimated CRCL calculation 67 ml/min; Estimated Glomerular Filt Rate > 60; Glucose 115 mg/dL (65-105); Potassium 4.4 mmol/L (3.4-5.0); Sodium 140 mmol/L (137-145)
[2020-11-10] MEDS: ACETAMINOPHEN 325 MG TABLET 650 MG PO (06:46)
[2020-11-10] MEDS: TICAGRELOR 90 MG TABLET PO (08:31)
[2020-11-10] MEDS: GABAPENTIN 300 MG CAPSULE PO ×2 (08:31→12:54)
[2020-11-10] MEDS: LIDOCAINE 5% PATCH 2 PATCH TRANSDERM (08:33)
[2020-11-10 08:34] VITALS: PULSE 66
[2020-11-10] MEDS: METOPROLOL TARTRATE 50 MG TAB PO (08:34)
[2020-11-10 08:48] VITALS: PULSE 65
--- NOTE | 2020-11-10 09:08 | PM.DS ---
DS: Admitting Diagnosis Admitting Diagnosis Admitting Diagnosis: altered mental status DS: Discharge Diagnosis Discharge Diagnosis (1) Encephalopathy acute: Code(s): G93.40 - Encephalopathy, unspecified Status: Acute Assessment and Plan: Probably related to polypharmacy dehydration associated with acute renal failure Patient was given Narcan with improvement Avoid narcotic Avoid benzo resolved (2) Acute renal failure: Code(s): N17.9 - Acute kidney failure, unspecified Status: Acute Assessment and Plan: Treated with IV hydration improved. monitor BMP in 3 days (3) Opiate overdose: Code(s): T40.601A - Poisoning by unspecified narcotics, accidental (unintentional), initial encounter Status: Acute Assessment and Plan: Patient's urine drug screen positive for opiates. She was on [place] 10 mg tablets at the rehab facility. She did respond to Narcan. Continue supportive care at this time patient was resumed only on tramadol and Tylenol and lidocaine patch. (4) Baclofen overdose: Code(s): T42.8X1A - Poisoning by antiparkinsonism drugs and other central muscle-tone depressants, accidental (unintentional), initial encounter Status: Acute Assessment and Plan: Supportive care. (5) Polypharmacy: Code(s): Z79.899 - Other termite helper (current) drug therapy Status: Acute Assessment and Plan: medication adjusted see medication on discharge (6) Sacral insufficiency fracture: Code(s): M84.48XA - Pathological fracture, other site, initial encounter for fracture Status: Acute Assessment and Plan: Confirmed by CT scan on admission. PT OT evaluation pain control PT OT evaluation activity as tolerated. (7) Macrocytic anemia: Code(s): D53.9 - Nutritional anemia, unspecified Status: Acute Assessment and Plan: Hemoglobin 9.6 on admission. She was probably hemoconcentrated as well. With IV fluids, hemoglobin has dropped to 8.1. She has macrocytosis. monitor no evidence of acute bleeding workup as outpatient follow-up with PCP (8) DVT prophylaxis: Code(s): Z29.9 - Encounter for prophylactic measures, unspecified Status: Acute Assessment and Plan: Resume Eliquis (9) Atrial fibrillation with RVR: Code(s): I48.91 - Unspecified atrial fibrillation Status: Acute Assessment and Plan: Patient developed episode of AFib with RVR during hospitalization it seems that patient has history of AFib and past continue Eliquis treated with amiodarone oral metoprolol follow CBC CMP and magnesium in 3 days controlled (10) Hypernatremia: Code(s): E87.0 - Hyperosmolality and hypernatremia Status: Acute Assessment and Plan: Developed during hospitalization started D5 half-normal saline at the rate of 50 resolved DC IV fluid DS: Summary Hospital Course Hospital Course: Patient recently hospitalized for pain and is on consider amount of sedating medication. She was transferred to a rehab facility where she was found unresponsive last night. Patient did receive Narcan with improved response. Patient was noted to have apneic episodes and so BiPAP was started. Her ABG on admission however was normal on room air. CT of the brain showing moderate sinusitis but otherwise no acute findings. Urine drug screen positive for opiates. She does have acute kidney injury probably pre renal and low hemoglobin but otherwise no other acute findings. Chest x-ray and UA were clear. CT of the abdomen pelvis did show the sacral insufficiency fracture and dilated gallbladder. Overall, feel sepsis less likely. patient became more responsive patient developed AFib with RVR during hospitalization cardiology was consulted treated with amiodarone drip also she has hyponatremia treated with D5 her condition significantly improved medication was adjusted patient sleep apnea
== END 2020-11-10 14:20 | DRG 917 ==
LOC: ANHED 22:10 → ANH3MEDSUR 22:40 → ANHIMU 11-06 15:26 → ANH3MEDSUR 11-10 09:11 → ANHIMU 11-14 12:23
PROVIDERS: Internal Medicine; Admitting Provider Internal Medicine; Emergency Provider General Practice; PCP Family Medicine; Visit Provider Internal Medicine
DX: T42.8X1A Poisoning by antiparkinsonism drugs and other central muscle-tone depressants, accidental (unintentional), initial encounter (principal); G92 Toxic encephalopathy; N17.9 Acute kidney failure, unspecified; E87.0 Hyperosmolality and hypernatremia; I48.20 Chronic atrial fibrillation, unspecified; M84.48XA Pathological fracture, other site, initial encounter for fracture; T40.691A Poisoning by other narcotics, accidental (unintentional), initial encounter; Z20.822 Contact with and (suspected) exposure to COVID-19; E86.0 Dehydration; D53.9 Nutritional anemia, unspecified; G25.81 Restless legs syndrome; E78.5 Hyperlipidemia, unspecified; I10 Essential (primary) hypertension; G47.33 Obstructive sleep apnea (adult) (pediatric); I25.10 Atherosclerotic heart disease of native coronary artery without angina pectoris; M81.0 Age-related osteoporosis without current pathological fracture; R33.9 Retention of urine, unspecified; J45.909 Unspecified asthma, uncomplicated; Z79.01 Long term (current) use of anticoagulants; Z95.0 Presence of cardiac pacemaker; Z79.899 Other long term (current) drug therapy
CPT/HCPCS: 36415; 36600; 70450; 71045; 73030; 74176; 76705; 80053; 80307; 81001; 82140; 82607; 82746; 82805; 82948; 83605; 83735; 84100; 84443; 84484; 85025; 85610; 85730; 86140; 87040; 92610; 93005; 93306; 94002; 94003; 94660; 96361; 96374; 96375; 97110; 97116; 97161; 97166; 97530; 99285; A9270; C9803; G0378; J0131; J0282; J1650; J2310; J7030; J7040; U0003; U0005

== ENCOUNTER 2020-11-14 10:38 | Inpatient (IN) | payer MEDICARE, OTHER, SELFPAY ==
[2020-11-14] VITALS (17 sets, daily range): BP systolic 70–152; BP diastolic 34–103; PULSE 70–95; RESP 16–22; TEMP 36.8–38.7; O2SAT 90–99; BMI 32.8
--- NOTE | ~2020-11-14 | CT_ITS ---
EXAMINATION: CT brain wo con DATE: 11/14/2020 11:18 INDICATION: Altered mental state TECHNIQUE: Computed tomography (CT) of the head was performed without intravenous contrast. The mA wa s adjusted according to patient size. Iterative reconstruction technique was employed. Exam dose: 68 1.00 mGy-cm total exam DLP. COMPARISON: November 03, 2020 CT brain FINDINGS: Examination is limited by motion artifact. Bilateral vertebral artery and carotid siphon internal carotid artery calcifications. No intracranial mass lesion or hemorrhage or cerebrovascular accident is evident. No midline shift or mass effect effect. Normal ventricular size. No subdural or epidural hematoma is evident. Fluid levels are noted in both sphenoid sinuses. Mastoid air cells appear normally developed and aera greg. No apparent fracture or bone destruction of the cranial vault. IMPRESSION: Examination limited by motion artifact; no acute intracranial finding is noted Cerebral atherosclerosis Fluid levels in both sphenoid sinuses Reviewed, dictated and finalized at [facility]. Reviewed, dictated and finalized at location [facility]. ULA TECHNICIAN IMPRESSION: Examination limited by motion artifact; no acute intracranial find ing is noted Cerebral atherosclerosis Fluid levels in both sphenoid sinuses
--- NOTE | ~2020-11-14 | XR_ITS ---
XR chest 1V DATE: 11/14/2020 11:19 INDICATION: Altered mental state TECHNIQUE: Portable AP chest on November 14, 2020 at 1117 hours COMPARISON: November 03, 2020 portable AP chest FINDINGS: There is prominent elevation of the right leaf of the diaphragm. Mild atelectasis at the ri ght lung base is suggested. Borderline or mild cardiomegaly. Mitral annulus calcification. Left dual-lead pacemaker device with leads overlying right atrium and right ventricle. No pulmonary vascular congestion or pleural effusion or pneumothorax. Diffuse osteopenia. Left humeral head replacement. IMPRESSION: Prominent elevation right diaphragm and mild atelectasis at right lung base Borderline or increased heart size Left pacemaker device No significant change since November 03, 2020 Reviewed, dictated and finalized at location [facility]. RAL PRODUCTION WORKER IMPRESSION: Prominent elevation right diaphragm and mild atelectasis at right l jocelyn base Borderline or increased heart size Left pacemaker device No significant change since November 03, 2020
--- NOTE | 2020-11-14 10:51 | ED.AMS ---
HPI - Altered Mental Status General Chief Complaint: Altered Mental Status Stated Complaint: altered mental status Source: EMS Mode of arrival: EMS Limitations: altered mental status History of Present Illness HPI narrative: A 70-year-old female [facility] for [facility] status. Patient is acutely confused, unable to provide any history. Reportedly the [facility] the [facility] for pelvic fractures and shoulder dislocations. She had been admitted here at the hospital recently and diagnosed with opiate use disorder and altered mental status secondary to the narcotic medications. prison reports that the patient has not had any further narcotic medications. Related Data Home Medications Medication Instructions Recorded Confirmed Flovent HFA 2 puff INHALATION Q12H 11/03/20 11/04/20 albuterol sulfate [Ventolin HFA] 2 puff INHALATION QID PRN 11/03/20 11/03/20 alendronate 70 mg PO WEEKLY 11/03/20 11/04/20 apixaban 5 mg PO HS 11/03/20 11/04/20 atorvastatin 40 mg PO HS 11/03/20 11/04/20 bisacodyl 10 mg RECTAL DAILY PRN 11/03/20 11/04/20 calcium carbonate-vitamin D3 1 tablet PO DAILY 11/03/20 11/04/20 furosemide 20 mg PO DAILY 11/03/20 11/04/20 gabapentin 300 mg PO TID 11/03/20 11/06/20 gemfibrozil 600 mg PO BID 11/03/20 11/03/20 glucosamine sulfate 500 mg PO DAILY 11/03/20 11/03/20 losartan 50 mg PO DAILY 11/03/20 11/03/20 magnesium citrate [Citroma] 296 ml PO PRN PRN 11/03/20 11/06/20 magnesium hydroxide [Milk of 30 ml PO DAILY PRN 11/03/20 11/06/20 Magnesia] raloxifene [Evista] 60 mg PO DAILY 11/03/20 11/06/20 ticagrelor 90 mg PO Q12H 11/03/20 11/03/20 Fleet Enema 1 applic RECTAL PRN PRN 11/04/20 11/06/20 baclofen mg 11/14/20 Allergies Allergy/AdvReac Type Severity Reaction Status Date / Time SAM Inhibitors Allergy Unknown Verified 11/14/20 11:17 erythromycin base Allergy Unknown Verified 11/14/20 11:17 sulfamethizole Allergy Unknown Verified 11/14/20 11:17 Review of Systems Review of Systems: ROS unobtainable: Yes unobtainable due to mental status PMFSH Past Medical History Medical History Asthma Atrial fibrillation On chronic anticoagulation with Eliquis CAD (coronary artery disease) Two stents [address] Manjinder Bueno CHF (congestive heart failure) Essential hypertension Hyperlipidemia Hypertension Hypertriglyceridemia Post-menopausal osteoporosis Surgical History Surgical History History of permanent cardiac pacemaker placement 2019? Followed by Dr. Bueno History of shoulder surgery Left shoulder Family History Family History Other Unknown family medical history Social History Social History Social History: Previously , lived alone, 3 children, used to work as a telephone appointment clerk. Primary care physician: Dr. Mario Gama Code status: Full code per EMR Smoking status: Never smoker Alcohol intake: never Gender identity (if verbalized by the patient): Female Spiritual care concerns: No Exam Narrative: Exam Narrative: GENERAL: Confused, thrashing about the bed. HEAD: Normocephalic, atraumatic. EYES: PERRLA and EOMI. ENT: Nares clear, no rhinorrhea or epistaxis. Mucous membranes moist. NECK: Supple. No adenopathy or masses. No carotid bruits or JVD CHEST: Tachycardic, difficult exam as patient is yelling out. HEART: Tachycardic ABDOMEN: Soft, nontender, nondistended, normal active bowel sounds. EXTREMITIES: Normal range of motion. No edema. Thrashing about the bed SKIN: Warm, dry, no rash. NEURO: Confused. Alert and oriented x0. PSYCH: Confused. Course Consultations Consultation #1: Discussed case with MARIE Alcantar for hospitalist services. Pertinent details of the patient's arrival, work-u
[2020-11-14 11:07] LABS: Basophils Percent Auto 0.2 % (0.2-1.2); Eosinophils Percent Auto 0.4 % (0-4.4); Hematocrit 33.8 % (37.0-47.0); Hemoglobin 10.4 g/dL (12.0-15.0); Immature Granulocyte Absolute 0.02 K/mm3 (0.00-0.031); Immature Granulocyte Percent A 0.4 % (0-0.5); Lymphocytes Absolute Auto 1.19 K/mm3 (0.9-3.2); Lymphocytes Percent Auto 21.6 % (18.3-44.2); Mean Corpuscular HGB Conc 30.8 g/dl (32-36); Mean Corpuscular Hemoglobin 31.1 pg (26-34); Mean Corpuscular Volume 101.2 fl (80-100); Mean Platelet Volume 10.8 fl (7.4-10.4); Monocytes Absolute Auto 0.5 K/mm3 (0.1-0.6); Monocytes Percent Auto 9.2 % (2.6-8.5); Neutrophils Absolute Auto 3.8 K/mm3 (1.3-6.7); Neutrophils Percent Auto 68.2 % (45.5-73.1); Platelet Count Result 330 k/mm3 (150-375); Red Blood Count 3.34 M/mm3 (4.2-5.4); Red Cell Distribution Width 14.6 % (11.5-14.5); White Blood Count 5.5 K/mm3 (4.5-10.0)
[2020-11-14] MEDS: OLANZapine 10 MG INJ VIAL IM (11:15)
[2020-11-14 11:17] LABS: INR 1.2; Prothrombin Time 15.7 Seconds (11.1-14.7)
[2020-11-14 11:19] LABS: Lactic Acid Reflex 1.4 mmol/L (0.7-2.1)
[2020-11-14 11:20] LABS: Alanine Aminotransferase 14 U/L (4-35); Albumin Level 3.3 g/dL (3.5-5.1); Alkaline Phosphatase 141 U/L (38-126); Anion Gap 7 mmol/L (8-16); Aspartate Amino Transferase 31 U/L (14-36); Bilirubin,Total 0.6 mg/dL (0.2-1.3); Blood Urea Nitrogen 34 mg/dL (7-17); Calcium 7.2 mg/dL (8.4-10.2); Carbon Dioxide 33 mmol/L (22-30); Chloride 100 mmol/L (98-107); Creatine Kinase 48 U/L (30-135); Estimated CRCL calculation 39 ml/min; Estimated Glomerular Filt Rate 40; Glucose 95 mg/dL (65-105); Sodium 140 mmol/L (137-145)
[2020-11-14 11:32] LABS: Troponin I 0.024 ng/mL (0.000-0.034)
[2020-11-14 12:06] LABS: Add Urine Microscopic? YES; Appearance Urine Cloudy (Clear); Bilirubin Urine Negative (Negative); Blood Urine 3+ (Negative); Color Urine Yellow (Yellow); Glucose Urine UA Negative (Negative); Ketones Urine Negative (Negative); Leukocyte Esterase Ur 1+ LEU/UL (Negative); Mucus Urine Rare /lpf; Nitrate Urine Negative (Negative); Protein Urine 1+ mg/dL (Negative); RBC Urine >75 /hpf (0-2); Specific Grav Ur 1.013 (1.001-1.035); Squamous Epithelial Cell Urine Occasional /hpf (Few); Urobilinogen Urine Negative mg/dL (<2.0); WBC Urine 31-50 /hpf
[2020-11-14] MEDS: LACTATED RINGERS 1,000 ML 999 ML IV CONT (12:26)
--- NOTE | 2020-11-14 13:45 | ECG_ITS ---
Measurements Intervals Datil Rate: 84 P: 112 AL: 183 QRS: -12 QRSD: 91 T: 11 QT: 386 QTc: 457 Interpretive Statements ELECTRONIC ATRIAL PACEMAKER WITH INHIBITION ANTERIOR INFARCT, AGE INDETERMINATE ABNORMAL ECG Electronically Signed On 11-14-2020 13:51:14 [employer] by Telly Pollack D.O.
--- NOTE | 2020-11-14 14:30 | PM.IMHP ---
H&P: HPI History of Present Illness Date/Time: 11/14/20 14:30 Chief Complaint: Altered mental status. Narrative: This is a 71-year-old female with paroxysmal atrial fibrillation, coronary artery disease, dyslipidemia, and hypertension who presented to the emergency department earlier today via EMS from the [facility] for evaluation of altered mental status. The patient is known to hospitalist service with a recent admission earlier this month under similar circumstances. She was seen emergency department on 11/03/2020 with altered mental status, felt to be due to polypharmacy and dehydration with improvement in her sensorium with hydration and discontinuation of narcotics and muscle relaxants (she has been taking these medications due to a recent fall with injuries including dislocated shoulder and pelvic fractures). In any regard, she was discharged back for rehab on 11/10/2020 and apparently has been alert and oriented x4 since that time. According to EMS report, she had sudden onset of altered mental status approximately 5 minutes prior to them being called today and on their arrival she was alert and oriented x1 and was calm however shortly thereafter she began screaming and was restless agitated. The rehab facility did confirm to the nurse that she indeed has been taking baclofen 10 milligrams 3 times a day, although I am not certain she received that today. At the time my evaluation she is alert but obviously confused and can provide no history, nor does she follow commands. Of note the patient received Zyprexa 10 milligrams IM in the emergency department. Review of Systems Review of Systems: Narrative: A review of systems is unable to be obtained accurately given her current clinical condition as detailed above. [facility] Past Medical History Medical History (Updated 11/14/20 @ 20:21 by Patricia Bradford PA-C) Asthma Atrial fibrillation On chronic anticoagulation with Eliquis. Congestive heart failure Coronary artery disease Stent x [address] Manjinder Bueno. Current use of fdc anticoagulation On Eliquis for stroke prophylaxis given atrial fibrillation. Essential hypertension Hyperlipidemia Hypertension Hypertriglyceridemia Post-menopausal osteoporosis Urinary retention Surgical History Surgical History (Updated 11/14/20 @ 14:05 by Patricia Bradford PA-C) History of permanent cardiac pacemaker placement History of shoulder surgery Left shoulder arthroscopy. Family History Family History Father Arthritis Mother Diabetes mellitus Cancer Other Unknown family medical history Social History Social History Social History: The patient lives alone in [place] but is currently doing rehab as per HPI. Previously . Retired from [employer]. She has 3 grown children. No alcohol, tobacco, or illicit substance use. Her daughter, Elvia Elizalde, is listed as her emergency contact. Code status: Full code. Smoking status: Never smoker Alcohol intake: never Substance use type: painkillers Gender identity (if verbalized by the patient): Female Spiritual care concerns: No Meds Home Medications and Allergies Home Medications Medication Instructions Recorded Confirmed Type Flovent HFA 2 puff INHALATION Q12H 11/03/20 11/14/20 History albuterol sulfate [Ventolin HFA] 2 puff INHALATION QID PRN 11/03/20 11/14/20 History alendronate 70 mg PO WEEKLY 11/03/20 11/14/20 History apixaban 5 mg PO HS 11/03/20 11/14/20 History atorvastatin 40 mg PO HS 11/03/20 11/14/20 History bisacodyl 10 mg RECTAL DAILY PRN 11/03/20 11/14/20 History calcium carbonate-vitamin D3 1 tablet PO DAILY 11/03/20 11/14/20 History furosemide 20 mg PO DAILY 11/03/20 11/14/20 History gabapentin 300 mg PO TID 11/03/20 11/14/20 History gemfibrozil 600 mg PO BID 11/03/20
[2020-11-14 15:04] LABS: Barbiturate Screen Urine Negative (Negative); Benzodiazepines Screen Urine Negative (Negative)
[2020-11-14 15:10] LABS: Phencyclidine Screen Urine Negative (Negative)
--- NOTE | 2020-11-14 15:10 | ADMGEN ---
This patient, Arin Mcmillan, was admitted to [address] [facility] Surg Room 307-01 @ 1445. Patient/family oriented to hospital policies and general routines including ID bracelet, bed and alarms, visiting hours, pain management, procedures, bathroom and other care routines, personal items, smoking policy, room service/diet, and visiting hours. Information on how to activate the Rapid Response Team has been discussed. Patient/Family are encouraged to report perceived risks to care and to ask questions if they do not understand what they are told or what they should do.
[2020-11-14] MEDS: LACTATED RINGERS 1,000 ML 100 ML IV CONT (15:12)
[2020-11-14 15:17] LABS: Alveolar/Arterial O2 Gradient 33.2 mmHg; Base Excess ABG 2.3 mEq/l (+/-2.0); Carboxyhemoglobin 0.3 % THb (0-2.0); Fractional Inspired Oxygen 21 %; HCO3 ABG 25.4 mEq/l (22.0-26.0); Methemoglobin ABG 0.3 %THb (0-1.5); Oxygen Content ABG 15.4 %vol (16.0-22.0); Oxygen Saturation ABG 96.2 % (95.0-100.0); Oxyhemoglobin 93.9 % THb (90.0-100.0); PCO2 ABG 34.3 mmHg (35.0-45.0); PO2 ABG 75.5 mmHg (80.0-100.0); Reduced Hemoglobin 5.5 %THb (0-5.0); Total Hemoglobin 11.6 g/dL (12.0-18.0); pH ABG 7.488 (7.350-7.450)
[2020-11-14 15:18] LABS: Device ROOM AIR; Modified Allen's Test Pass; Site Drawn RIGHT RADIAL
[2020-11-14 15:54] LABS: Amphetamine Screen Urine Negative (Negative); Cannabinoid Screen Urine Negative (Negative); Cocaine Screen Urine Negative (Negative); Methadone Screen Urine Negative (Negative); Opiate Screen Urine Negative (Negative)
[2020-11-14] MEDS: SODIUM CHLORIDE 0.9% IV 1,000 ML 999 ML IV CONT (22:10)
[2020-11-14] MEDS: NALOXONE HCL 0.4 MG/ML VIAL IV PUSH (22:10)
--- NOTE | 2020-11-14 22:23 | PM.CCN ---
Critical Care Event Note Summary Code activated: No Narrative: 11/14/2020 at 22:05 A rapid response was called because the placed in systolic blood pressure was 75. The patient was unresponsive. She had received 10 of IM Zyprexa in the ER. The patient is clinically volume depleted. She has been getting maintenance IV fluids. Patient was noted to have apneic episodes his bedside. She does have history of obstructive sleep apnea but does not use a CPAP at home. An order was given for 1 L of isotonic fluid bolus and auto titrating CPAP. One dose of Narcan was given but was not effective in the patient's urine drug screen was negative for opiates. Vitals reviewed GENERAL: Minimally responsive to noxious stimuli, ill-appearing HEENT: Mucous membranes are dry, mouth is open with oral respirations CARDIOVASCULAR: Regular rate, RESPIRATORY: Periods of apnea, desats to 83% with apnea ABDOMEN: Distended, soft INTEGUMENT: Generalized pallor NEUROLOGIC: Minimally responsive to noxious stimuli, does not follow commands PSYCHIATRIC: Unable to assess due to condition EXTREMITIES: No clubbing, cyanosis or edema : Be catheter in place with clear yellow urine present Assessment and Plan: 1. Hypotension--possibly secondary to hypovolemia and drug effect. After 300 mL of fluid bolus patient blood pressure had improved to 110 systolic on the lower extremity. 2. Encephalopathy--due to polypharmacy including baclofen that was discontinued during her recent hospitalization and the addition of Zyprexa given in the ER. Will hold all sedating medications. 30 minutes spent in critical care activities. This case had a high probability of a clinically significant, sudden, or life threatening deterioration of this patient's condition which required my full and direct attention, intervention and personal management. Critical care time: 30 - 74 mins
[2020-11-14] MEDS: ACETAMINOPHEN 650 MG SUPPOSITORY RECTAL (23:05)
--- NOTE | 2020-11-14 23:50 | PC.NURSE ---
Rapid response was called at 2203 due to patient glascow and her blood pressure. Blood pressure was 75/46 heart rate 92. Rapid response team came along with , Dr. Garcia. Notified MD and response team of patient blood pressure and history. Orders were given, see chart. Continuing to monitor patient blood pressure, Dr. Garcia is being notified with each blood pressure. See chart for vital sings. Patient did have an elevated temperature and medication has been given. Antibiotics has been started and is currently running. Second bolus is infusing as well. Patient glascow has improved, see chart. Will continue to monitor patient and notify MD after second bolus is complete on patient status.
[2020-11-15] VITALS (36 sets, daily range): BP systolic 74–136; BP diastolic 49–105; PULSE 64–121; RESP 12–25; TEMP 36.6–38.4; O2SAT 94–100; BMI 34.2
[2020-11-15] MEDS: SODIUM CHLORIDE 0.9% IV 1,000 ML 999 ML IV CONT (00:30)
--- NOTE | 2020-11-15 01:00 | PC.NURSE ---
pt transfered from [facility] for cnetral line placement. pt moaning but does not answer questions placed on monitor prepared for central line
[2020-11-15] MEDS: NOREPINEPHRINE 8 MG/D5W 250 ML 8 MG/250 ML BAG 9.38 MG IV CONT (01:30)
--- NOTE | 2020-11-15 01:42 | P.RRN_ITS ---
Critical Care Event Note Summary Code activated: No Narrative: 11/15/2020 at 12:30 a.m. Patient had received 2 L in fluid bolus. Initially patient was fluid responsive with improvement in her blood pressures up to 94 systolic after the 1st L. The 2nd L of fluid bolus was finished and the patient's blood pressures had again dropped down to the mid 70s systolic. The patient had continued low urine output despite fluid resuscitation. The patient remained less responsive but with moving around restlessly in the bed. She had a CPAP in place and was no longer having episodes of apnea. Patient had spiked a fever to 101.6 and received Tylenol suppository. Her temperature has been down to 101.1. The patient had declared herself a septic shock was likely due to UTI. The patient was transferred to the ICU and a left femoral line was placed. GENERAL: Acutely ill-appearing, overweight/obese HEENT: Mucous membranes are dry, head is normocephalic atraumatic CARDIOVASCULAR: Regular rate, regular rhythm RESPIRATORY: No tachypnea, decreased episodes of apnea now on CPAP ABDOMEN: Nontender, positive bowel sounds INTEGUMENT: Generalized pallor, warm to touch, yeast in inguinal fold on the right NEUROLOGIC: Does not follow commands, moving all extremities equally, respondin g to painful stimuli, trying to grab for central line during placement PSYCHIATRIC: Restless, moaning EXTREMITIES: No clubbing, cyanosis or edema : Be catheter in place with small amount of dark yellow turbid urine Assessment and plan: Septic shock most likely due to Be catheter associated UTI--patient has been transferred to the ICU. The patient's case was discussed with the freight broker agent who agreed with current plan and management. Patient is on empiric antibiotic therapy with Rocephin. Will initiate pressor therapy with Levophed for goal maps of 65-70 given her low urine output. Await urine and blood cultures. 32 minutes spent in critical care activities in exclusion of procedures. This case had a high probability of a clinically significant, sudden, or life threatening deterioration of this patient's condition which required my full and direct attention, intervention and personal management. Critical care time: 30 - 74 mins
--- NOTE | 2020-11-15 01:52 | WPDPROCEDUR ---
Procedures Central Line Placement Left Femoral: Central Line Date: 11/15/20 Central Line Time: 01:10 Discussed w/ the patient/family/POA,the placement of a central venous catheter, including its clinical necessity/indication & associated potential risks, benifits and alternatives.: Yes The patient/family/POA understand(s) and acknowledge(s) the need to proceed with central venous catheter insertion as an important element of the patient's clinical management.: Yes Time Out Performed: Yes Patient Position: trendelenburg Patient placed on monitor/pulse ox: Yes Provider Prep: mask, sterile gown, sterile gloves, Max. sterile barrier precautions, cap and hand hygiene with conventional soap/water or alcohol based hand rub Central line prep: 2% Chlorhexidine scrub and sterile full body sheet applied Sterile US Technique with sterile gel/sterile probe covers: Yes Central line lumen inserted: triple Kosovan: 7 Length (cm): 16 Depth of Insertion (cm): 16 Post Procedure: sutured in place, good blood return, all ports aspirated, flushed, capped, transparent dressing, hemostatic product, antimicrobial product, securement product and aseptic technique maintained throughout procedure Patient tolerated procedure: well Complications: none
[2020-11-15 01:55] LABS: Glucose Point of Care 94 (65-105)
--- NOTE | 2020-11-15 02:27 | PC.NURSE ---
Notified MD about patient blood pressure and order were to transfer to ICU. Patient was transferred at 0100 on 11/15/2020.
[2020-11-15] MEDS: ACETAMINOPHEN 650 MG SUPPOSITORY RECTAL ×2 (02:36→20:11)
[2020-11-15 05:48] LABS: Alanine Aminotransferase 13 U/L (4-35); Albumin Level 2.8 g/dL (3.5-5.1); Alkaline Phosphatase 117 U/L (38-126); Anion Gap 12 mmol/L (8-16); Aspartate Amino Transferase 40 U/L (14-36); Bilirubin,Total 0.3 mg/dL (0.2-1.3); Blood Urea Nitrogen 38 mg/dL (7-17); Calcium 6.1 mg/dL (8.4-10.2); Carbon Dioxide 25 mmol/L (22-30); Chloride 105 mmol/L (98-107); Estimated Glomerular Filt Rate 34; Glucose 93 mg/dL (65-105); Lactic Acid Reflex 0.6 mmol/L (0.7-2.1); Magnesium 1.2 mg/dL (1.6-2.3); Potassium 4.1 mmol/L (3.4-5.0); Sodium 142 mmol/L (137-145)
[2020-11-15 08:27] LABS: Alveolar/Arterial O2 Gradient 29.1 mmHg; Base Excess ABG -2.5 mEq/l (+/-2.0); Fractional Inspired Oxygen 21 %; HCO3 ABG 22.1 mEq/l (22.0-26.0); Oxygen Content ABG 13.7 %vol (16.0-22.0); Oxygen Saturation ABG 95.2 % (95.0-100.0); Oxyhemoglobin 93.1 % THb (90.0-100.0); PCO2 ABG 37.3 mmHg (35.0-45.0); PO2 FiO2 Ratio Arterial Blood 3.62 %; Total Hemoglobin 10.4 g/dL (12.0-18.0); pH ABG 7.391 (7.350-7.450)
[2020-11-15 08:28] LABS: Device OTHER DEVICE; Modified Allen's Test Pass; Site Drawn RIGHT RADIAL
--- NOTE | 2020-11-15 08:37 | WPDCNINT ---
Assessment and Plan Assessment and plan (1) Septic shock: Code(s): A41.9 - Sepsis, unspecified organism; R65.21 - Severe sepsis with septic shock Status: Acute Assessment and Plan: Septic shock, likely source urine, could also be bacteremia -blood cultures and urine cultures pending -continue ceftriaxone -patient started on Levophed after central line being inserted in the left femoral vein. Will maintain MAP > 65-70 mmHg (2) Encephalopathy: Code(s): G93.40 - Encephalopathy, unspecified Status: Acute Assessment and Plan: Encephalopathy of unknown origin, be related to infection, medications stoma septic shock, hypotension -CT scan of the head on 11/14 did not show any intracranial abnormalities -will check ammonia level (3) Acute renal failure: Code(s): N17.9 - Acute kidney failure, unspecified Status: Acute Assessment and Plan: Acute kidney injury could be related to hypotension, septic shock, -patient has received adequate amount of IV fluids, -will continue to monitor urine output, renal function electrolytes (4) UTI (urinary tract infection): Code(s): N39.0 - Urinary tract infection, site not specified Status: Acute Assessment and Plan: UA reflective of UTI, patient started on ceftriaxone, blood cultures and urine cultures are pending (5) Dehydration: Code(s): E86.0 - Dehydration Status: Acute Assessment and Plan: Patient has been adequately fluid-resuscitated (6) DVT prophylaxis: Code(s): Z29.9 - Encounter for prophylactic measures, unspecified Status: Acute Assessment and Plan: On Eliquis Additional Plan Will d/w family Code status: Full code Critical care time spent: 43 minutes Due to a high probability of clinically significant, life threatening deterioration, the patient required my highest level of preparedness to intervene emergently and I personally spent this critical care time directly and personally managing the patient. This critical care time included obtaining a history; examining the patient; pulse oximetry; ordering and review of studies; arranging urgent treatment with development of a management plan; evaluation of patient's response to treatment; frequent reassessment; and discussions with other providers. It was exclusive of separately billable procedures and treating other patients and teaching time. Please see Assessment and Plan section and the rest of the note for further information on patient assessment and treatment Road Freight Firer Consult Note Consult date: 11/15/20 Time Seen: 07:10 Reason for consult: Septic shock, possible UTI, encephalopathy HPI: Arin Mcmillan is a 70 year old female of atrial fibrillation on Eliquis, CHF, coronary artery disease with stent x2 in 2019, essential hypertension, hyperlipidemia, urinary retention with indwelling Be catheter presented to the ED on 11/14/2020 from senior living with altered mental status. The patient was recently admitted [facility] from 11/03/2020 to 11/10/2020 it was son the day altered mental status was due to polypharmacy, dehydration. Mental status improved with hydration and discontinuation of narcotics and muscle relaxants. Patient was on medical floor and overnight a rapid response was called due to her systolic blood pressures being in the 70s. Patient got a total of 4 L including ER and on the medical floor. Despite which her blood pressures remained low, patient was transferred to the ICU, central line was inserted in the left femoral vein and patient started on Levophed. UA reflective of a UTI, patient started on ceftriaxone. Patient had been altered and was given Narcan overnight no effect. Patient seen and examined this morning, patient is obtunded, encephalopathic, which is grimaces to pain stimulus. Does not open her eyes or follow simple commands. Stat ABGs were done which showed a pH of 7.39, pCO2 of 37, PO2 of 7
[2020-11-15] MEDS: CALCIUM GLUC 2,000 MG/NS 100ML 2,000 MG/100 ML BAG 100 MG IVPB (08:50)
[2020-11-15] MEDS: MAGNESIUM SULF 2 GM/WATER 50ML 2 GM/50 ML BAG IVPB (08:51)
[2020-11-15 09:33] LABS: Ammonia < 9 umol/L (9-30)
[2020-11-15] MEDS: DEXTROSE 5%/0.9% SOD CHL 1,000 ML 75 ML IV CONT ×2 (12:46→23:54)
[2020-11-15] MEDS: CENTRAL LINE FLUSH 10 ML IV PUSH ×3 (14:35→20:22)
--- NOTE | 2020-11-15 14:48 | PM.IMPN ---
Progress Note: A&P Assessment and Plan (1) Septic shock: Code(s): A41.9 - Sepsis, unspecified organism; R65.21 - Severe sepsis with septic shock Status: Acute Assessment and Plan: Secondary to UTI infection On vasopressor Rocephin Early goal directed therapy Strict I/O's Iv fluids Supportive care Appreciate Int/Cc note (2) UTI (urinary tract infection): Code(s): N39.0 - Urinary tract infection, site not specified Status: Acute Assessment and Plan: On Rocephin currently (3) Dehydration: Code(s): E86.0 - Dehydration Status: Acute Assessment and Plan: IV fluids as needed (4) Encephalopathy: Code(s): G93.40 - Encephalopathy, unspecified Status: Acute Assessment and Plan: Secondary to infection Toxic encephalopathy. (5) Urinary retention: Code(s): R33.9 - Retention of urine, unspecified Status: Acute Assessment and Plan: Be in Catheter care (6) Delirium due to general medical condition: Code(s): F05 - Delirium due to known physiological condition Status: Acute Assessment and Plan: Supportive care (7) Hypernatremia: Code(s): E87.0 - Hyperosmolality and hypernatremia Status: Acute Assessment and Plan: Started on D51/2NS (8) Macrocytic anemia: Code(s): D53.9 - Nutritional anemia, unspecified Status: Acute Assessment and Plan: Continue to monitor Transfuse as needed (9) Sacral insufficiency fracture: Code(s): M84.48XA - Pathological fracture, other site, initial encounter for fracture Status: Acute Assessment and Plan: Supportive care (10) Polypharmacy: Code(s): Z79.899 - Other terminal clerk (current) drug therapy Status: Acute Assessment and Plan: Holding meds Subjective Date/time seen: 11/15/20 14:48 Unresponsive. Review of Systems Review of Systems: ROS unobtainable: Yes unobtainable due to medical condition Exam Narrative: Exam Narrative: Lying in bed, BiPAP on. Const: General: ill appearing and other (Unresponsive.) Nutritional Appearance: overweight and other Orientation/consciousness: Other orientation findings (Unresponsive.) HENMT: Head: normal to inspection and normocephalic Face and sinus: normal facial exam Other: BiPAP mask on. Eyes: General: appearance normal, both eyes and all related structures Pupils: Equal, round and reactive pupils present and Other pupil findings (3 mm in diameter.) EOM: EOMs intact bilaterally Neck: Neck: no lymphadenopathy, supple and no JVD Resp: Auscultation: diminished lung sounds Cardio: Jugular venous distension: no JVD Rate: regular rate Rhythm: regular rhythm GI: GI Palp: Yes Soft to palpation and Yes No hepatosplenomegaly present Skin: Rashes: no rashes Wounds: no wounds Neuro: General: other (Unresponsive.) Cranial nerves: Yes Equal, round and reactive pupils present Cognition (Neuro): abnormal cognition (Unresponsive.) Extrem: General: no pedal edema Objective Data Vital Signs Vital Signs: Vital Signs - 24 hr 11/14/20 16:00 11/14/20 21:00 11/14/20 22:00 Temperature 98.3 F Pulse Rate 85 72 70 Respiratory Rate 20 Blood Pressure 75/46 L Pulse Oximetry 90 11/14/20 22:02 11/14/20 22:15 11/14/20 22:30 Temperature Pulse Rate Respiratory Rate Blood Pressure 75/46 L 70/40 L 87/38 L Pulse Oximetry 11/14/20 22:45 11/14/20 22:55 11/14/20 23:00 Temperature 101 F H Pulse Rate 95 Respiratory Rate 16 20 Blood Pressure 84/60 L 89/50 L Pulse Oximetry 97 11/14/20 23:05 11/14/20 23:40 11/14/20 23:45 Temperature 101.6 F H Pulse Rate Respiratory Rate Blood Pressure 93/40 L 82/38 L 71/34 L Pulse Oximetry 11/15/20 00:20 11/15/20 00:57 11/15/20 01:00 Temperature 101.1 F H 100 F H Pulse Rate 76 Respiratory Rate 20 18 Blood Pressure 77/55 L Pulse Oximetry 97 97 11/15/20 01:30
--- NOTE | 2020-11-15 19:00 | PC.NURSE ---
Dr. Vivar notified of change in mental status as well as GI bleeding. GI consult ordered, H&H drawn and sent.
[2020-11-15 19:18] LABS: Hematocrit 28.9 % (37.0-47.0)
[2020-11-15] MEDS: LIDOCAINE 5% PATCH 2 PATCH TRANSDERM (20:10)
[2020-11-15] MEDS: NOREPINEPHRINE 8 MG/D5W 250 ML 8 MG/250 ML BAG 11.25 MG IV CONT (20:12)
[2020-11-15] MEDS: GABAPENTIN 300 MG CAPSULE PO (20:24)
[2020-11-15] MEDS: PANTOPRAZOLE SODIUM IV 40 MG VIAL IV PUSH (20:25)
[2020-11-15] MEDS: FLUTICASONE PROP 110 MCG INHALER 12 GM (*SP) 2 PUFF INHALATION (21:18)
[2020-11-15] MEDS: NOREPINEPHRINE 8 MG/D5W 250 ML 8 MG/250 ML BAG 13.13 MG IV CONT (22:59)
[2020-11-16] VITALS (28 sets, daily range): BP systolic 78–137; BP diastolic 46–76; PULSE 86–130; RESP 16–30; TEMP 36.6–38.3; O2SAT 93–100
[2020-11-16] MEDS: CENTRAL LINE FLUSH 10 ML IV PUSH ×4 (05:00→20:16)
[2020-11-16 07:03] LABS: Basophils Percent Auto 0.2 % (0.2-1.2); Eosinophils Percent Auto 0.2 % (0-4.4); Hematocrit 25.3 % (37.0-47.0); Hemoglobin 7.8 g/dL (12.0-15.0); Immature Granulocyte Absolute 0.01 K/mm3 (0.00-0.031); Immature Granulocyte Percent A 0.2 % (0-0.5); Lymphocytes Absolute Auto 1.17 K/mm3 (0.9-3.2); Lymphocytes Percent Auto 20.9 % (18.3-44.2); Mean Corpuscular HGB Conc 30.8 g/dl (32-36); Mean Corpuscular Hemoglobin 31.3 pg (26-34); Mean Corpuscular Volume 101.6 fl (80-100); Mean Platelet Volume 10.7 fl (7.4-10.4); Monocytes Absolute Auto 0.4 K/mm3 (0.1-0.6); Monocytes Percent Auto 6.4 % (2.6-8.5); Neutrophils Percent Auto 72.1 % (45.5-73.1); Platelet Count Result 234 k/mm3 (150-375); Red Blood Count 2.49 M/mm3 (4.2-5.4); Red Cell Distribution Width 14.8 % (11.5-14.5); White Blood Count 5.6 K/mm3 (4.5-10.0)
[2020-11-16 07:13] LABS: Lactic Acid Reflex 0.9 mmol/L (0.7-2.1)
[2020-11-16 07:17] LABS: Alanine Aminotransferase 14 U/L (4-35); Albumin Level 2.6 g/dL (3.5-5.1); Alkaline Phosphatase 101 U/L (38-126); Anion Gap 2 mmol/L (8-16); Aspartate Amino Transferase 38 U/L (14-36); Bilirubin,Total 0.2 mg/dL (0.2-1.3); Blood Urea Nitrogen 27 mg/dL (7-17); CRP 6.6 mg/dL (<1.0); Calcium 6.6 mg/dL (8.4-10.2); Carbon Dioxide 28 mmol/L (22-30); Chloride 112 mmol/L (98-107); Estimated Glomerular Filt Rate > 60; Glucose 167 mg/dL (65-105); Magnesium 1.5 mg/dL (1.6-2.3); Phosphorus 2.2 mg/dL (2.5-4.5); Potassium 3.8 mmol/L (3.4-5.0); Sodium 142 mmol/L (137-145)
[2020-11-16] MEDS: MAGNESIUM SULF 2 GM/WATER 50ML 2 GM/50 ML BAG IVPB (08:40)
[2020-11-16] MEDS: FLUTICASONE PROP 110 MCG INHALER 12 GM (*SP) 2 PUFF INHALATION ×2 (08:59→21:10)
[2020-11-16] MEDS: ACETAMINOPHEN 650 MG SUPPOSITORY RECTAL (09:52)
[2020-11-16] MEDS: PANTOPRAZOLE SODIUM IV 40 MG VIAL IV PUSH ×2 (09:52→20:15)
--- NOTE | 2020-11-16 10:28 | WPDGICN ---
Assessment and Plan Assessment and plan (1) Rectal bleeding: Code(s): K62.5 - Hemorrhage of anus and rectum Status: Acute Assessment and Plan: patient could not tell me if ever had a colonoscopy noted recent CT scan 2 weeks ago that showed sacral insufficiency fracture, continue to monitor for ongoing signs of bleeding. I would prefer conservative approach in setting of that fracture. Of course if more bleeding with drop in hemoglobin then may need colonoscopy differential diagnosis is ischemic colitis (given shock which is better now), diverticular bleed, AVM, etc monitor h/h and hold both blood thinners (brilinta and eliquis) for now (2) Acute on chronic blood loss anemia: Code(s): D62 - Acute posthemorrhagic anemia Status: Acute Assessment and Plan: trend h/h and for more sings of bleeding (3) Septic shock: Code(s): A41.9 - Sepsis, unspecified organism; R65.21 - Severe sepsis with septic shock Status: Acute Assessment and Plan: on levophe but BP is better, by distribution sales manager (4) UTI (urinary tract infection): Code(s): N39.0 - Urinary tract infection, site not specified Status: Acute Assessment and Plan: probably source of shock, on antibiotics (5) Encephalopathy: Code(s): G93.40 - Encephalopathy, unspecified Status: Acute Assessment and Plan: improved (6) Atrial fibrillation with RVR: Code(s): I48.91 - Unspecified atrial fibrillation Status: Acute (7) CAD (coronary artery disease): Code(s): I25.10 - Atherosclerotic heart disease of [place] coronary artery without angina pectoris Status: Acute (8) Sacral insufficiency fracture: Code(s): M84.48XA - Pathological fracture, other site, initial encounter for fracture Status: Acute Assessment and Plan: during recent hospitalization (9) Current use of machine long goods helper anticoagulation: Code(s): Z79.01 - termite exterminator helper (current) use of anticoagulants Status: Inactive GI Consult Note Consult date/time: 11/16/20 10:28 Reason for consult: rectal bleeding HPI: Arni Mcmillan is a 70 year old female with history of paroxysmal atrial fibrillation on eliquis, coronary artery disease on brilinta, dyslipidemia, and hypertension who was admitted with altered mental status. She had a previous visit on 11/03/2020 with altered mental status, felt to be due to polypharmacy and dehydration with improvement of status after hydration and discontinuation of narcotics and muscle relaxants (she was on those medications due to a recent fall with injuries including dislocated shoulder and pelvic fractures) and discharged back for rehab on 11/10/2020. This time readmitted 11/14 to floor with AMS but then rapid response was called due to hypotension, did not respond to fluids and transferred to ICU and started on levophed after left femoral vein central line, also required Cpap because shortness of breath. UA c/w UTI and started on ceftriaxone. She is alert again and seems better, weaning levophed and not using Cpap only oxygen. I was called because yesterday had new onset of clots per rectum. She has chronic anemia with hb 8.4 recent hospitalization now 7.8. Also reviewed CT scan during last hospitalization that showed bilateral sacral insufficiency fractures. Review of Systems Constitutional: Constitutional: Reports fatigue Eyes: Eyes: Reports no additional eye complaints ENT: Reports Normal hearing present Cardiovascular: Cardiovascular: Reports no additional cardiovascular complaints Respiratory: Respiratory: Reports dyspnea Gastrointestinal: Gastrointestinal: Denies abdominal pain and Reports hematochezia Genitourinary: Genitourinary: Denies hematuria Musculoskeletal: Comments: pelvic pain Integumentary/Breasts: Skin/Breast: Denies dry skin Neurologic: Reports confusion Psychiatric: Psychiatric: Reports confusion PMFSH Past Medical History Medica
[2020-11-16 11:52] LABS: Hematocrit 24.1 % (37.0-47.0); Hemoglobin 7.5 g/dL (12.0-15.0)
--- NOTE | 2020-11-16 12:32 | PCOTNOTE ---
Attempted OT evaluation, but unable to complete at this time as RN notified therapy that patient currently has a femoral line. Will continue to follow.
--- NOTE | 2020-11-16 12:32 | PCOTNOTE ---
Attempted OT evaluation, but unable to complete at this time as RN notified therapy that patient currently have a femoral line. Will attempt again tomorrow.
--- NOTE | 2020-11-16 12:33 | PCPTNOTE ---
Eval ordered...femoral line present (placed [id number])..will see tomorrow as appropriate
[2020-11-16] MEDS: GABAPENTIN 300 MG CAPSULE PO ×2 (12:35→16:35)
--- NOTE | 2020-11-16 13:21 | WPDINTPN ---
Progress Note: A&P Assessment and Plan (1) Septic shock: Code(s): A41.9 - Sepsis, unspecified organism; R65.21 - Severe sepsis with septic shock Status: Acute Assessment and Plan: Improving. Vasopressor support has been discontinued. Continue current antibiotics for a total of 5-7 days for UTI And follow up on blood cultures and susceptibility patterns. Recommend removing femoral central line within 48 hours of insertion to prevent further blood stream infections. Consider placing a PICC line instead. (2) Rectal bleeding: Code(s): K62.5 - Hemorrhage of anus and rectum Status: Acute Assessment and Plan: All anticoagulation has been held and she has had no further rectal bleeding as of this morning. If she bleeds again she will need serial CBCs q.6 hours. (3) Acute on chronic blood loss anemia: Code(s): D62 - Acute posthemorrhagic anemia Status: Acute (4) UTI (urinary tract infection): Code(s): N39.0 - Urinary tract infection, site not specified Status: Acute (5) Encephalopathy: Code(s): G93.40 - Encephalopathy, unspecified Status: Acute Assessment and Plan: Seems to have resolved. (6) Urinary retention: Code(s): R33.9 - Retention of urine, unspecified Status: Acute Additional Plan The patient can be transferred to IMU or medical telemetry. Will sign off please call with any concerns or questions. Thank you for involving me in the care of this patient. Code status: Full code Critical care time spent:33 minutes Due to a high probability of clinically significant, life threatening deterioration, the patient required my highest level of preparedness to intervene emergently and I personally spent this critical care time directly and personally managing the patient. This critical care time included obtaining a history; examining the patient; pulse oximetry; ordering and review of studies; arranging urgent treatment with development of a management plan; evaluation of patient's response to treatment; frequent reassessment; and discussions with other providers. It was exclusive of separately billable procedures and treating other patients and teaching time. Please see Assessment and Plan section and the rest of the note for further information on patient assessment and treatment Subjective Date/time seen: 11/16/20 13:21 Interval history: This is a 70-year-old female with multiple medical problems including atrial fibrillation, acute on chronic blood loss anemia, congestive heart failure, coronary artery disease, chronic pain on narcotics and muscle relaxants. She presented with encephalopathy, septic shock and UTI. Her mentation has greatly improved over the past 24 hours with antibiotics, IV fluids and vasopressor support. She had 2 bouts of maroon-colored stools last night and was seen by GI. Anticoagulation has been held and she is currently just being monitored. She has had no further lower GI bleeding as of this morning. her narcotics and muscle relaxants were also held in light of her mental status changes. Review of Systems Review of Systems: All systems reviewed & are unremarkable except as noted in HPI and below Exam Const: General: cooperative, comfortable, no acute distress, alert and awake HENMT: Other: CPAP mask in place Eyes: Sclera: sclerae normal and scleral abnormality Neck: Neck: trachea midline and supple Resp: Auscultation: rhonchi and diminished lung sounds Cardio: Rate: regular rate Rhythm: regular rhythm Other: Paced rhythm GI: Inspection: non-distended GI Palp: Yes Soft to palpation and No Tenderness to palpation present (GI) Auscultation: normal bowel sounds : Other: Be catheter in place Urinary Catheter: Urinary Catheter: patent and draining and urine clear Skin: General skin exam: normal color and no rashes or lesions noted Neuro: Cognition (Neuro): normal cognition Speech
--- NOTE | 2020-11-16 13:29 | PCSTNOTE ---
Bedside swallow study completed. Please see ST evaluation for details and recommendations.
[2020-11-16] MEDS: DEXTROSE 5%/0.9% SOD CHL 1,000 ML 75 ML IV CONT (16:34)
[2020-11-16] MEDS: gemfibroziL 600 MG TABLET PO (16:35)
--- NOTE | 2020-11-16 16:52 | PM.IMPN ---
Progress Note: A&P Assessment and Plan (1) UTI (urinary tract infection): Code(s): N39.0 - Urinary tract infection, site not specified Status: Acute Assessment and Plan: On Rocephin Awaiting Ua cx I&S (2) Encephalopathy: Code(s): G93.40 - Encephalopathy, unspecified Status: Acute Assessment and Plan: Resolved Back to her usual (3) Acute on chronic blood loss anemia: Code(s): D62 - Acute posthemorrhagic anemia Status: Acute Assessment and Plan: H&H q 6 hours GI on consult Transfuse as needed (4) Rectal bleeding: Code(s): K62.5 - Hemorrhage of anus and rectum Status: Acute Assessment and Plan: Had BM's with blood (5) Septic shock: Code(s): A41.9 - Sepsis, unspecified organism; R65.21 - Severe sepsis with septic shock Status: Acute Assessment and Plan: Off vasopressors now (6) Urinary retention: Code(s): R33.9 - Retention of urine, unspecified Status: Acute Assessment and Plan: Likely due to neurogenic bladder. (7) Delirium due to general medical condition: Code(s): F05 - Delirium due to known physiological condition Status: Acute (8) Sacral insufficiency fracture: Code(s): M84.48XA - Pathological fracture, other site, initial encounter for fracture Status: Acute Assessment and Plan: Conservative care Patient is wheel chair bound (9) Polypharmacy: Code(s): Z79.899 - Other termite exterminator (current) drug therapy Status: Acute Assessment and Plan: Meds on hold Continue to monitor Follow up in the outpatient setting. Subjective Date/time seen: 11/16/20 16:52 States that she feels well. Review of Systems Review of Systems: Narrative: back pain. Constitutional: Comments: no fevers, no chills, no rigors. ENT: Comments: no nasal congestion. Cardiovascular: Comments: no chest pain. Respiratory: Comments: no sob. Gastrointestinal: Comments: no n/v/abdominal pain. Musculoskeletal: Comments: joint pain, chronic back pain. Integumentary/Breasts: Comments: no rashes. Neurologic: Comments: no sensory motor deficit, wheel chair bound. Exam Narrative: Exam Narrative: Lying in bed. Const: General: cooperative, comfortable, no acute distress, alert, awake, Physically active and other (Chronically ill looking.) Nutritional Appearance: overweight Orientation/consciousness: patient oriented x3 HENMT: Head: normal to inspection and normocephalic Ears: hearing grossly normal bilaterally General nose exam: Normal external nose present Face and sinus: normal facial exam Mouth: Yes Normal oral and palatal mucosa present Eyes: General: appearance normal, both eyes and all related structures Pupils: Equal, round and reactive pupils present EOM: EOMs intact bilaterally Neck: Neck: no lymphadenopathy, supple and no JVD Resp: Effort & Inspection: normal respiratory effort and able to speak in complete sentences Auscultation: clear to auscultation bilaterally Cardio: Jugular venous distension: no JVD Rate: regular rate Rhythm: regular rhythm GI: GI Palp: Yes Soft to palpation and Yes No hepatosplenomegaly present Skin: Rashes: no rashes Neuro: General: patient oriented x3 and CN's II-XI intact bilaterally Cranial nerves: Yes CN's II-XII intact bilaterally and Yes Bilaterally intact EOM present Cognition (Neuro): normal cognition Speech: normal speech Gait exam (Neuro): Other gait observations present (Wheel chair bound) Extrem: General: no pedal edema Objective Data Vital Signs Vital Signs: Vital Signs - 24 hr 11/15/20 16:55 11/15/20 18:00 11/15/20 20:00 Temperature 98 F Pulse Rate 80 114 H 98 Respiratory Rate 13 25 H 25 H Blood Pressure 103/90 92/80 L Pulse Oximetry 100 99 99 11/15/20 20:12 11/15/20 21:18 11/15/20 21:20 Temperature Pulse Rate 114 H 108 H 107 H Respiratory Rate 24 H 21 H Blood Pressure 92/80 L P
[2020-11-16] MEDS: DIGOXIN INJ 250 MCG/ML 2 ML AMP (*BKC) 500 MCG IV PUSH ×2 (17:13→23:16)
[2020-11-16 18:41] LABS: Hematocrit 24.1 % (37.0-47.0); Hemoglobin 7.3 g/dL (12.0-15.0)
[2020-11-16] MEDS: ATORVASTATIN 40 MG TABLET PO (20:15)
[2020-11-17] VITALS (24 sets, daily range): BP systolic 69–114; BP diastolic 44–65; PULSE 65–122; RESP 18–33; TEMP 36.5–37.6; O2SAT 92–99
[2020-11-17 05:11] LABS: Hematocrit 25.6 % (37.0-47.0); Hemoglobin 7.7 g/dL (12.0-15.0); Mean Corpuscular HGB Conc 30.1 g/dl (32-36); Mean Corpuscular Hemoglobin 30.6 pg (26-34); Mean Corpuscular Volume 101.6 fl (80-100); Mean Platelet Volume 10.6 fl (7.4-10.4); Platelet Count Result 201 k/mm3 (150-375); Red Blood Count 2.52 M/mm3 (4.2-5.4); Red Cell Distribution Width 14.9 % (11.5-14.5); White Blood Count 4.3 K/mm3 (4.5-10.0)
[2020-11-17] MEDS: DEXTROSE 5%/0.9% SOD CHL 1,000 ML 75 ML IV CONT (05:11)
[2020-11-17] MEDS: CENTRAL LINE FLUSH 10 ML IV PUSH ×4 (05:12→22:00)
[2020-11-17 05:27] LABS: Alanine Aminotransferase 13 U/L (4-35); Albumin Level 2.5 g/dL (3.5-5.1); Alkaline Phosphatase 92 U/L (38-126); Anion Gap 4 mmol/L (8-16); Aspartate Amino Transferase 36 U/L (14-36); Bilirubin,Total 0.2 mg/dL (0.2-1.3); Blood Urea Nitrogen 19 mg/dL (7-17); Calcium 6.8 mg/dL (8.4-10.2); Carbon Dioxide 25 mmol/L (22-30); Chloride 112 mmol/L (98-107); Estimated Glomerular Filt Rate > 60; Glucose 130 mg/dL (65-105); Magnesium 1.8 mg/dL (1.6-2.3); Sodium 141 mmol/L (137-145)
[2020-11-17] MEDS: GABAPENTIN 300 MG CAPSULE PO ×3 (09:02→18:25)
[2020-11-17] MEDS: gemfibroziL 600 MG TABLET PO ×2 (09:02→18:25)
[2020-11-17] MEDS: PANTOPRAZOLE SODIUM IV 40 MG VIAL IV PUSH ×2 (09:03→21:22)
[2020-11-17] MEDS: FLUTICASONE PROP 110 MCG INHALER 12 GM (*SP) 2 PUFF INHALATION ×2 (10:27→20:20)
[2020-11-17] MEDS: DIGOXIN 250 MCG TABLET PO (10:27)
[2020-11-17] MEDS: LIDOCAINE 5% PATCH 2 PATCH TRANSDERM (10:27)
--- NOTE | 2020-11-17 10:59 | PCOTNOTE ---
Attempted OT evaluation, but unable to complete at this time as patient currently has a femoral line. Will continue to follow.
--- NOTE | 2020-11-17 11:01 | PCPTNOTE ---
triple lumen femoral line still present...Therapy will see when appropriate
--- NOTE | 2020-11-17 12:11 | WPDGIPROGNO ---
Progress Note: A&P Assessment and Plan (1) Rectal bleeding: Code(s): K62.5 - Hemorrhage of anus and rectum Status: Acute Assessment and Plan: continue to monitor for more signs of bleeding just 2 weeks ago she had bilateral sacral insufficiency fractures (reviewed CT scan abd/pelvis 11/03/20, no major findings in abdomen otherwise- no colon mass or obvious diverticulosis), I prefer to defer colonoscopy in setting of recent fracture in pelvic area, of course if brisk bleeding then we will need to do a colonoscopy (2) Acute on chronic blood loss anemia: Code(s): D62 - Acute posthemorrhagic anemia Status: Acute Assessment and Plan: trend h/h (3) Septic shock: Code(s): A41.9 - Sepsis, unspecified organism; R65.21 - Severe sepsis with septic shock Status: Acute Assessment and Plan: off pressors today, BP still in low side she is on antibiotics in ICU (4) Encephalopathy: Code(s): G93.40 - Encephalopathy, unspecified Status: Acute Assessment and Plan: resolved, probably multifactorial (5) Atrial fibrillation with RVR: Code(s): I48.91 - Unspecified atrial fibrillation Status: Acute Assessment and Plan: blood thinners on hold in setting of GIB (6) Sacral insufficiency fracture: Code(s): M84.48XA - Pathological fracture, other site, initial encounter for fracture Status: Acute Assessment and Plan: CT scan 11/03/20 Subjective Date/time seen: 11/17/20 12:11 Interval history: had small amount of rectal bleeding this morning per RN, she is off pressors this morning. Mentation is better. Review of Systems Review of Systems: All systems reviewed & are unremarkable except as noted in HPI and below Exam Const: General: cooperative, comfortable, no acute distress, alert, awake and ill appearing chronically HENMT: Other: CPAP mask in place Eyes: Sclera: sclerae normal and scleral abnormality Neck: Neck: trachea midline and supple Resp: Auscultation: rhonchi and diminished lung sounds Cardio: Rate: regular rate Rhythm: regular rhythm Other: Paced rhythm GI: Inspection: non-distended GI Palp: Yes Soft to palpation and No Tenderness to palpation present (GI) Auscultation: normal bowel sounds : Other: Be catheter in place Urinary Catheter: Urinary Catheter: patent and draining and urine clear Skin: General skin exam: normal color and no rashes or lesions noted Neuro: Speech: normal speech Other: more alert and oriented today Extrem: Other: Pitting edema bilateral lower extremities Psych: Speech and movement: Clear speech present Objective Data Vital Signs Vital Signs: Vital Signs - 24 hr 11/16/20 12:34 11/16/20 14:00 11/16/20 15:07 Temperature Pulse Rate 96 Respiratory Rate 24 H Blood Pressure 131/61 113/53 L Pulse Oximetry 98 96 11/16/20 16:00 11/16/20 17:13 11/16/20 17:28 Temperature 98.8 F Pulse Rate 98 130 H 126 H Respiratory Rate 24 H Blood Pressure 112/62 91/59 L Pulse Oximetry 96 11/16/20 18:00 11/16/20 20:00 11/16/20 21:11 Temperature 98.1 F Pulse Rate 104 H 89 101 H Respiratory Rate 24 H 16 28 H Blood Pressure 97/50 L 92/52 L Pulse Oximetry 100 99 96 11/16/20 22:00 11/16/20 23:16 11/16/20 23:23 Temperature 98.4 F Pulse Rate 100 110 H 86 Respiratory Rate 20 30 H Blood Pressure 93/61 L 116/71 Pulse Oximetry 94 93 11/17/20 00:00 11/17/20 02:00 11/17/20 02:51 Temperature Pulse Rate 94 105 H 110 H Respiratory Rate 29 H Blood Pressure 110/59 L 96/57 L Pulse Oximetry 94 11/17/20 04:00 11/17/20 05:12 11/17/20 06:00 Temperature 99.7 F H Pulse Rate 115 H 114 H Respiratory Rate 33 H 29 H Blood Pressure 96/44 L 112/55 L 105/65 Pulse Oximetry 92 95 11/17/20 07:20 11/17/20 08:00 11/17/20 10:00 Temperature 98.3 F Pulse Rate 122 H 106 H Respiratory Rate 22 H 24 H Blood Pressure 105/65 87/56 L Pulse Oximetry
[2020-11-17] MEDS: DEXTROSE 5%/LACTATED RINGERS 1,000 ML 75 ML IV CONT (12:15)
--- NOTE | 2020-11-17 13:35 | WPDINTPN ---
Progress Note: A&P Assessment and Plan (1) Septic shock: Code(s): A41.9 - Sepsis, unspecified organism; R65.21 - Severe sepsis with septic shock Status: Acute Assessment and Plan: Improving. vasopressor support has been weaned off.. Continue current antibiotics for a total of 5-7 days for UTI And follow up on blood cultures and susceptibility patterns. Recommend removing femoral central line within 48 hours of insertion to prevent further blood stream infections. Consider placing a PICC line instead. (2) Rectal bleeding: Code(s): K62.5 - Hemorrhage of anus and rectum Status: Acute Assessment and Plan: All anticoagulation has been held and she has had no further rectal bleeding as of this morning. If she bleeds again she will need serial CBCs q.6 hours. (3) Acute on chronic blood loss anemia: Code(s): D62 - Acute posthemorrhagic anemia Status: Acute Assessment and Plan: Lower GI is likely source. Going for EGD tomorrow. (4) UTI (urinary tract infection): Code(s): N39.0 - Urinary tract infection, site not specified Status: Acute (5) Encephalopathy: Code(s): G93.40 - Encephalopathy, unspecified Status: Acute Assessment and Plan: Seems to have resolved. (6) Urinary retention: Code(s): R33.9 - Retention of urine, unspecified Status: Acute Additional Plan Code status is full A total of 35 minutes of critical care time spent excluding all procedures Subjective Date/time seen: 11/17/20 13:35 Interval history: She still feels a little weak but feels a bit better than yesterday. She had another bloody bowel movement this morning blood pressure is borderline low but she seems to be perfusing her organs at this time. Renal function and urine output are normal. She developed rapid atrial fibrillation that responded to digoxin yesterday. She was switched from Levophed to phenylephrine yesterday and phenylephrine was weaned off this morning. Her hemoglobin has been stable at 7.7. Platelets are 201. She is awaiting a colonoscopy tomorrow. She does admit to approximately 100 lb weight loss over the past year or so but she attributes that to stress in her life and going through a divorce with some intentional weight loss. Review of Systems Review of Systems: All systems reviewed & are unremarkable except as noted in HPI and below Exam Const: General: cooperative, comfortable, no acute distress, alert and awake HENMT: Other: CPAP mask in place Eyes: Sclera: sclerae normal and scleral abnormality Neck: Neck: trachea midline and supple Resp: Auscultation: rhonchi and diminished lung sounds Cardio: Rate: regular rate Rhythm: regular rhythm Other: Paced rhythm GI: Inspection: non-distended GI Palp: Yes Soft to palpation and No Tenderness to palpation present (GI) Auscultation: normal bowel sounds : Other: Be catheter in place Urinary Catheter: Urinary Catheter: patent and draining and urine clear Skin: General skin exam: normal color and no rashes or lesions noted Neuro: Cognition (Neuro): normal cognition Speech: normal speech Other: Patient is obtunded encephalopathic, not open her eyes to name of follows simple commands. Withdraws to pain Extrem: Other: Pitting edema bilateral lower extremities Psych: Other: Unable to assess at this time Objective Data Vital Signs Vital Signs: Vital Signs - 24 hr 11/16/20 14:00 11/16/20 15:07 11/16/20 16:00 Temperature 37.1 C Pulse Rate 96 98 Respiratory Rate 24 H 24 H Blood Pressure 113/53 L 112/62 Pulse Oximetry 98 96 96 11/16/20 17:13 11/16/20 17:28 11/16/20 18:00 Temperature Pulse Rate 130 H 126 H 104 H Respiratory Rate 24 H Blood Pressure 91/59 L 97/50 L Pulse Oximetry 100 11/16/20 20:00 11/16/20 21:11 11/16/20 22:00 Temperature 36.7 C Pulse Rate 89 101 H 100 Respiratory Rate 16 28 H 20 Blood Pressure 92/52 L 93/61
--- NOTE | 2020-11-17 16:51 | PM.IMPN ---
Progress Note: A&P Assessment and Plan (1) Acute on chronic blood loss anemia: Code(s): D62 - Acute posthemorrhagic anemia Status: Acute Assessment and Plan: Transfused 1 unit of PRBC's today Continue to monitor GI on consult EGD in am. (2) Septic shock: Code(s): A41.9 - Sepsis, unspecified organism; R65.21 - Severe sepsis with septic shock Status: Acute Assessment and Plan: Resolved Off of vasopressors (3) Rectal bleeding: Code(s): K62.5 - Hemorrhage of anus and rectum Status: Acute Assessment and Plan: Had new episode last night No other episodes (4) UTI (urinary tract infection): Code(s): N39.0 - Urinary tract infection, site not specified Status: Acute Assessment and Plan: Awaiting urine cx I&S (5) Dehydration: Code(s): E86.0 - Dehydration Status: Acute Assessment and Plan: Aggressively hydrate as needed Transfuse as needed Good urine output (6) Encephalopathy: Code(s): G93.40 - Encephalopathy, unspecified Status: Acute Assessment and Plan: Resolved. (7) Urinary retention: Code(s): R33.9 - Retention of urine, unspecified Status: Acute Assessment and Plan: Be in place (8) Delirium due to general medical condition: Code(s): F05 - Delirium due to known physiological condition Status: Acute Assessment and Plan: Resolved. 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 Subjective Date/time seen: 11/17/20 16:51 States that she feels fine. Review of Systems Review of Systems: Narrative: No new issues overnight. Denies any complains this morning. Exam Narrative: Exam Narrative: Lying in bed. Const: General: comfortable, alert, awake and Physically active Nutritional Appearance: average body habitus Orientation/consciousness: patient oriented x3 HENMT: Head: normocephalic Ears: hearing grossly normal bilaterally General nose exam: Normal external nose present Face and sinus: normal facial exam Eyes: General: appearance normal, both eyes and all related structures Pupils: Equal, round and reactive pupils present EOM: EOMs intact bilaterally Neck: Neck: no lymphadenopathy, supple and no JVD Resp: Effort & Inspection: normal respiratory effort Auscultation: clear to auscultation bilaterally Cardio: Jugular venous distension: no JVD Rate: regular rate Rhythm: regular rhythm GI: GI Palp: Yes Soft to palpation and Yes No hepatosplenomegaly present Skin: Wounds: no wounds Neuro: General: patient oriented x3 and CN's II-XI intact bilaterally Cranial nerves: Yes CN's II-XII intact bilaterally, Yes Equal, round and reactive pupils present and Yes Bilaterally intact EOM present Extrem: General: no pedal edema Objective Data Vital Signs Vital Signs: Vital Signs - 24 hr 11/16/20 17:13 11/16/20 17:28 11/16/20 18:00 Temperature Pulse Rate 130 H 126 H 104 H Respiratory Rate 24 H Blood Pressure 91/59 L 97/50 L Pulse Oximetry 100 11/16/20 20:00 11/16/20 21:11 11/16/20 22:00 Temperature 98.1 F Pulse Rate 89 101 H 100 Respiratory Rate 16 28 H 20 Blood Pressure 92/52 L 93/61 L Pulse Oximetry 99 96 94 11/16/20 23:16 11/16/20 23:23 11/17/20 00:00 Temperature 98.4 F Pulse Rate 110 H 86 94 Respiratory Rate 30 H Blood Pressure 116/71 Pulse Oximetry 93 11/17/20 02:00 11/17/20 02:51 11/17/20 04:00 Temperature 99.7 F H Pulse Rate 105 H 110 H 115 H Respiratory Rate 29 H 33 H Blood Pressure 110/59 L 96/57 L 96/44 L Pulse Oximetry
[2020-11-17] MEDS: ATORVASTATIN 40 MG TABLET PO (21:21)
[2020-11-18] VITALS (17 sets, daily range): BP systolic 97–133; BP diastolic 44–77; PULSE 66–84; RESP 16–23; TEMP 36.9–37.7; O2SAT 91–98
[2020-11-18] MEDS: DEXTROSE 5%/LACTATED RINGERS 1,000 ML 75 ML IV CONT ×2 (00:29→14:26)
[2020-11-18 05:38] LABS: Hematocrit 26.1 % (37.0-47.0); Hemoglobin 7.9 g/dL (12.0-15.0); Mean Corpuscular HGB Conc 30.3 g/dl (32-36); Mean Corpuscular Hemoglobin 29.7 pg (26-34); Mean Corpuscular Volume 98.1 fl (80-100); Mean Platelet Volume 11.3 fl (7.4-10.4); Platelet Count Result 152 k/mm3 (150-375); Red Blood Count 2.66 M/mm3 (4.2-5.4); Red Cell Distribution Width 17.1 % (11.5-14.5)
[2020-11-18] MEDS: CENTRAL LINE FLUSH 10 ML IV PUSH (05:53)
[2020-11-18] MEDS: ALBUTEROL SULFATE (*SP) AEROSOL 1 PUFF 2 PUFF INHALATION (05:55)
[2020-11-18 06:12] LABS: Alanine Aminotransferase 10 U/L (4-35); Albumin Level 2.2 g/dL (3.5-5.1); Alkaline Phosphatase 78 U/L (38-126); Anion Gap 1 mmol/L (8-16); Aspartate Amino Transferase 33 U/L (14-36); Bilirubin,Total 0.1 mg/dL (0.2-1.3); Blood Urea Nitrogen 12 mg/dL (7-17); Calcium 7.1 mg/dL (8.4-10.2); Carbon Dioxide 26 mmol/L (22-30); Chloride 110 mmol/L (98-107); Estimated Glomerular Filt Rate > 60; Glucose 180 mg/dL (65-105); Potassium 4.3 mmol/L (3.4-5.0); Sodium 137 mmol/L (137-145)
--- NOTE | 2020-11-18 08:42 | PCPTNOTE ---
Attempted PT eval. Hold therapy due to femoral line. Will follow.
--- NOTE | 2020-11-18 08:58 | PCOTNOTE ---
Attempted OT evaluation, but unable to complete at this time as patient currently has a femoral line. Will continue to follow.
[2020-11-18] MEDS: gemfibroziL 600 MG TABLET PO ×2 (09:45→16:51)
[2020-11-18] MEDS: DIGOXIN 250 MCG TABLET PO (09:45)
[2020-11-18] MEDS: LIDOCAINE 5% PATCH 2 PATCH TRANSDERM (09:46)
[2020-11-18] MEDS: GABAPENTIN 300 MG CAPSULE PO ×3 (09:46→16:51)
[2020-11-18] MEDS: PANTOPRAZOLE SODIUM IV 40 MG VIAL IV PUSH ×2 (09:46→21:36)
[2020-11-18] MEDS: FLUTICASONE PROP 110 MCG INHALER 12 GM (*SP) 2 PUFF INHALATION ×2 (09:47→22:34)
--- NOTE | 2020-11-18 11:02 | PCDIET ---
Nutrition Follow-Up Complete: Nutrition Diagnosis: Inadequate oral intake related to altered mental status as evidenced by NPO diet. Nutrition Goal: Patient to meet estimated nutritional needs. Goal in progress. Patient with average intake around 50% of meals on clear liquid diet. Patient has been requesting diet upgrade, per RN, and diet was just advanced to heart healthy which is appropriate. Will monitor intakes and provide additional recommendations, as needed. Last recorded weight is 81.8 kg which is increased from last review. +I/O. Bowel Motility: BM x 1 today. Labs Reviewed: Hgb (7.9), Hct (26.1), Glu (180), Alb (2.2), Chaz Ca (8.54) Meds Noted: Albuterol, Lipitor, Oscal 500 + D, Rocephin, D5LR at 75mL/hr, Lopid, Protonix Additional Notes: Patient received 1u RBC on 11/17/20. Buttocks and abdominal folds macerated. No open sores documented. Nutrition Monitoring and Evaluation: Follow up in 3 days.
--- NOTE | 2020-11-18 12:08 | WPDINTPN ---
Progress Note: A&P Assessment and Plan (1) Septic shock: Code(s): A41.9 - Sepsis, unspecified organism; R65.21 - Severe sepsis with septic shock Status: Acute Assessment and Plan: Resolved -patient of vasopressor support. -continue current antibiotics for a total of 5-7 days for UTI -blood cultures negative x2, urine cultures are negative -will remove femoral central line (2) Rectal bleeding: Code(s): K62.5 - Hemorrhage of anus and rectum Status: Acute Assessment and Plan: Normal rectal bleeding, continue to hold apixaban Hemoglobin stable at this time If she bleeds again she will need serial CBCs q.6 hours. (3) Acute on chronic blood loss anemia: Code(s): D62 - Acute posthemorrhagic anemia Status: Acute Assessment and Plan: Lower GI is likely source. -GI following the patient, (4) UTI (urinary tract infection): Code(s): N39.0 - Urinary tract infection, site not specified Status: Acute Assessment and Plan: Continue ceftriaxone (5) Encephalopathy: Code(s): G93.40 - Encephalopathy, unspecified Status: Acute Assessment and Plan: Resolved (6) Urinary retention: Code(s): R33.9 - Retention of urine, unspecified Status: Acute Assessment and Plan: Continue Be catheter, urine output has been adequate Additional Plan Discussed with patient updated with her condition and plan of care. I answered all questions. Code status: Full code Critical care time spent: 32 minutes Subjective Date/time seen: 11/18/20 12:08 Interval history: Patient is awake, alert, oriented x3, nonfocal, follows simple commands in all extremities. No hematochezia or melena blood pressures have been stable, heart rate has been stable, urine output has been adequate. Blood cultures negative x2 and urine cultures negative. Hemoglobin is stable. LFTs within normal limits. Denies any chest pain, shortness of breath, abdominal pain, nausea vomiting Review of Systems Review of Systems: All systems reviewed & are unremarkable except as noted in HPI and below Exam Const: General: comfortable and no acute distress HENMT: Mouth: Yes moist mucous membranes Other: CPAP mask in place Eyes: Sclera: sclerae normal Pupils: Equal, round and reactive pupils present Neck: Neck: supple Resp: Effort & Inspection: normal respiratory effort Auscultation: clear to auscultation bilaterally Cardio: Rate: regular rate Rhythm: regular rhythm Other: Paced rhythm GI: Inspection: non-distended GI Palp: Yes Soft to palpation and No Tenderness to palpation present (GI) Auscultation: normal bowel sounds : Other: Be catheter in place Urinary Catheter: Urinary Catheter: patent and draining Skin: General skin exam: normal color Neuro: Other: Patient is awake, alert, oriented x3, nonfocal., answers to questions appropriately and follows simple commands in all extremities Extrem: Other: Pitting edema bilateral lower extremities Psych: Mental Status: mental status grossly normal Affect: normal affect Objective Data Vital Signs Vital Signs: Vital Signs - 24 hr 11/17/20 12:35 11/17/20 14:00 11/17/20 16:00 Temperature 97.7 F 99.4 F Pulse Rate 99 104 H 99 Respiratory Rate 18 22 H 18 Blood Pressure 99/54 L 100/59 L 97/49 L Pulse Oximetry 96 97 98 11/17/20 17:31 11/17/20 18:00 11/17/20 19:00 Temperature Pulse Rate 77 83 Respiratory Rate 18 Blood Pressure 101/47 L 98/48 L Pulse Oximetry 95 11/17/20 20:00 11/17/20 20:05 11/17/20 20:10 Temperature Pulse Rate 82 80 Respiratory Rate 21 H Blood Pressure 69/58 L 82/51 L 106/48 L Pulse Oximetry 97 11/17/20 20:15 11/17/20 22:00 11/18/20 00:00 Temperature Pulse Rate 65 72 Respiratory Rate 20 17 Blood Pressure 113/53 L 114/49 L 107/55 L Pulse Oximetry 95 96 11/18/20 00:31 11/18/20 00:59 11/18/20 01:30 Temperature Pulse Rate
--- NOTE | 2020-11-18 13:32 | PCOTNOTE ---
OT evaluation attempted this afternoon, femoral line is removed, patient is currently in the process of being transferred to a different room. will follow and attempt at later time.
--- NOTE | 2020-11-18 13:35 | PC.NURSE ---
This patient, Arin Mcmillan, was transferred to [[id number]] on 11/18/20 at 1335. Personal belongings sent with patient. Report given to [ELVIRA MATUTE]. Appropriate documentation sent with patient.
--- NOTE | 2020-11-18 14:21 | PC.NURSE ---
patient transferred to room 304 from ICU at 1338
--- NOTE | 2020-11-18 14:55 | PCOTNOTE ---
Attempted OT evaluation in afternoon of 11/18, pt reports I feel to tired to get up right now . patient agreeable to participating in Occupational Therapy in morning. RN notified. Will follow and attempt at later time.
--- NOTE | 2020-11-18 16:49 | WPDGIPROGNO ---
Progress Note: A&P Assessment and Plan (1) Rectal bleeding: Code(s): K62.5 - Hemorrhage of anus and rectum Status: Acute Assessment and Plan: continue to monitor for more signs of bleeding, today had normal BM without any more trace of blood just 2 weeks ago she had bilateral sacral insufficiency fractures (reviewed CT scan abd/pelvis 11/03/20) I prefer to defer colonoscopy in setting of recent fracture in pelvic area, of course if brisk bleeding then we will need to do a colonoscopy which is not the case probably colonoscopy in 4-5 weeks and hold blood thinners for another 7-10 days at least (2) Acute on chronic blood loss anemia: Code(s): D62 - Acute posthemorrhagic anemia Status: Acute Assessment and Plan: received one unit prbc and hb low but stable (3) Septic shock: Code(s): A41.9 - Sepsis, unspecified organism; R65.21 - Severe sepsis with septic shock Status: Acute Assessment and Plan: now more pressors, she will go to the floor she is on antibiotics in ICU (4) Encephalopathy: Code(s): G93.40 - Encephalopathy, unspecified Status: Acute Assessment and Plan: resolved, probably multifactorial (5) Atrial fibrillation with RVR: Code(s): I48.91 - Unspecified atrial fibrillation Status: Acute Assessment and Plan: blood thinners on hold in setting of GIB, probably resume in 7-10 days (6) Sacral insufficiency fracture: Code(s): M84.48XA - Pathological fracture, other site, initial encounter for fracture Status: Acute Assessment and Plan: CT scan 11/03/20 Subjective Date/time seen: 11/18/20 16:49 Interval history: no more rectal bleeding, she will go to regular floor. Last BM today with brown stool per licensed physical therapy assistant of Systems Review of Systems: All systems reviewed & are unremarkable except as noted in HPI and below Exam Const: General: cooperative, comfortable, no acute distress, alert, awake and ill appearing chronically HENMT: Other: CPAP mask in place Eyes: Sclera: sclerae normal and scleral abnormality Neck: Neck: trachea midline and supple Resp: Auscultation: rhonchi and diminished lung sounds Cardio: Rhythm: abnormal rhythm Other: Paced rhythm GI: Inspection: non-distended GI Palp: Yes Soft to palpation and No Tenderness to palpation present (GI) Auscultation: normal bowel sounds : Other: Be catheter in place Urinary Catheter: Urinary Catheter: patent and draining and urine clear Skin: General skin exam: normal color and no rashes or lesions noted Neuro: Speech: normal speech Other: more alert and oriented today Extrem: Other: Pitting edema bilateral lower extremities Psych: Speech and movement: Clear speech present Objective Data Vital Signs Vital Signs: Vital Signs - 24 hr 11/17/20 17:31 11/17/20 18:00 11/17/20 19:00 Temperature Pulse Rate 77 83 Respiratory Rate 18 Blood Pressure 101/47 L 98/48 L Pulse Oximetry 95 11/17/20 20:00 11/17/20 20:05 11/17/20 20:10 Temperature Pulse Rate 82 80 Respiratory Rate 21 H Blood Pressure 69/58 L 82/51 L 106/48 L Pulse Oximetry 97 11/17/20 20:15 11/17/20 22:00 11/18/20 00:00 Temperature Pulse Rate 65 72 Respiratory Rate 20 17 Blood Pressure 113/53 L 114/49 L 107/55 L Pulse Oximetry 95 96 11/18/20 00:31 11/18/20 00:59 11/18/20 01:30 Temperature Pulse Rate Respiratory Rate Blood Pressure 133/71 113/54 L 109/51 L Pulse Oximetry 11/18/20 02:00 11/18/20 02:15 11/18/20 02:30 Temperature 98.7 F Pulse Rate 75 Respiratory Rate 19 Blood Pressure 104/55 L 104/44 L 113/56 L Pulse Oximetry 93 11/18/20 02:57 11/18/20 04:00 11/18/20 05:30 Temperature 99.6 F Pulse Rate 84 Respiratory Rate 18 Blood Pressure 99/63 L 97/66 L 112/52 L Pulse Oximetry 95 11/18/20 06:00 11/18/20 08:00 11/18/20 09:45 Temperature 98.4 F Pulse Rate 82 76 75 Respiratory Rate 2
--- NOTE | 2020-11-18 18:23 | PM.IMPN ---
Progress Note: A&P Assessment and Plan (1) Acute on chronic blood loss anemia: Code(s): D62 - Acute posthemorrhagic anemia Status: Acute Assessment and Plan: Rectal bleed which has stopped now. Had 1 unit of blood Continue to monitor No need for serial H&H (2) Rectal bleeding: Code(s): K62.5 - Hemorrhage of anus and rectum Status: Acute Assessment and Plan: Resolved. Holding blood thinners. (3) Septic shock: Code(s): A41.9 - Sepsis, unspecified organism; R65.21 - Severe sepsis with septic shock Status: Acute Assessment and Plan: Resolved (4) UTI (urinary tract infection): Code(s): N39.0 - Urinary tract infection, site not specified Status: Acute Assessment and Plan: Continue antibiotics. (5) Dehydration: Code(s): E86.0 - Dehydration Status: Acute Assessment and Plan: Resolved. (6) Encephalopathy: Code(s): G93.40 - Encephalopathy, unspecified Status: Acute Assessment and Plan: Resolved. (7) Urinary retention: Code(s): R33.9 - Retention of urine, unspecified Status: Acute Assessment and Plan: Neurogenic bladder Be in. (8) Delirium due to general medical condition: Code(s): F05 - Delirium due to known physiological condition Status: Acute Assessment and Plan: Resolved. (9) Atrial fibrillation with RVR: Code(s): I48.91 - Unspecified atrial fibrillation Status: Acute Assessment and Plan: Rate controlled. (10) Encephalopathy acute: Code(s): G93.40 - Encephalopathy, unspecified Status: Acute Assessment and Plan: Resolved. (11) Polypharmacy: Code(s): Z79.899 - Other terminal superintendent (current) drug therapy Status: Acute Assessment and Plan: Needs adjusted by her PCP Subjective Date/time seen: 11/18/20 18:23 Patient states that she feels fine Review of Systems Review of Systems: Narrative: no new issues. Exam Narrative: Exam Narrative: Lying in bed. Const: General: other (Chronically ill looking.) Nutritional Appearance: overweight Orientation/consciousness: patient oriented x3 HENMT: Head: normocephalic Ears: hearing grossly normal bilaterally General nose exam: Normal external nose present Face and sinus: normal facial exam Eyes: General: appearance normal, both eyes and all related structures Pupils: Equal, round and reactive pupils present EOM: EOMs intact bilaterally Neck: Neck: no lymphadenopathy, supple and no JVD Resp: Effort & Inspection: normal respiratory effort and able to speak in complete sentences Auscultation: clear to auscultation bilaterally Cardio: Jugular venous distension: no JVD Rate: regular rate Rhythm: regular rhythm GI: GI Palp: Yes Soft to palpation and Yes No hepatosplenomegaly present Skin: Rashes: no rashes Neuro: General: patient oriented x3 and CN's II-XI intact bilaterally Cranial nerves: Yes CN's II-XII intact bilaterally and Yes Equal, round and reactive pupils present Cognition (Neuro): normal cognition Speech: normal speech Motor exam (neuro): Other motor observations present (Wheel chair bound.) Extrem: General: no pedal edema Objective Data Vital Signs Vital Signs: Vital Signs - 24 hr 11/17/20 19:00 11/17/20 20:00 11/17/20 20:05 Temperature Pulse Rate 82 80 Respiratory Rate 21 H Blood Pressure 98/48 L 69/58 L 82/51 L Pulse Oximetry 97 11/17/20 20:10 11/17/20 20:15 11/17/20 22:00 Temperature Pulse Rate 65 Respiratory Rate 20 Blood Pressure 106/48 L 113/53 L 114/49 L Pulse Oximetry 95 11/18/20 00:00 11/18/20 00:31 11/18/20 00:59 Temperature Pulse Rate 72 Respiratory Rate 17 Blood Pressure 107/55 L 133/71 113/54 L Pulse Oximetry 96 11/18/20 01:30 11/18/20 02:00 11/18/20 02:15 Temperature 98.7 F Pulse Rate 75 Respiratory Rate 19 Blood Pressure 109/51 L 104/55 L 104/44 L P
[2020-11-18] MEDS: ATORVASTATIN 40 MG TABLET PO (21:36)
[2020-11-19] MEDS: DEXTROSE 5%/LACTATED RINGERS 1,000 ML 75 ML IV CONT ×2 (03:24→17:29)
[2020-11-19] MEDS: ALBUTEROL SULFATE (*SP) AEROSOL 1 PUFF 2 PUFF INHALATION (03:27)
[2020-11-19 05:37] VITALS: BP 121/58; PULSE 74; RESP 20; TEMP 37.2; O2SAT 94
[2020-11-19 08:20] VITALS: PULSE 88; RESP 20; O2SAT 93
[2020-11-19] MEDS: gemfibroziL 600 MG TABLET PO ×2 (08:43→17:31)
[2020-11-19] MEDS: GABAPENTIN 300 MG CAPSULE PO ×3 (08:43→17:31)
[2020-11-19] MEDS: PANTOPRAZOLE SODIUM IV 40 MG VIAL IV PUSH (08:44)
[2020-11-19] MEDS: LIDOCAINE 5% PATCH 2 PATCH TRANSDERM (08:45)
[2020-11-19 08:46] VITALS: PULSE 64
[2020-11-19] MEDS: DIGOXIN 250 MCG TABLET PO (08:46)
[2020-11-19] MEDS: FLUTICASONE PROP 110 MCG INHALER 12 GM (*SP) 2 PUFF INHALATION ×2 (08:47→20:55)
[2020-11-19 10:15] VITALS: BMI 10.0
--- NOTE | 2020-11-19 11:47 | PM.IMPN ---
Progress Note: A&P Assessment and Plan (1) Acute on chronic blood loss anemia: Code(s): D62 - Acute posthemorrhagic anemia Status: Acute Assessment and Plan: Rectal bleed which has stopped now. Sp blood transfusion blood thinners on hold (2) Rectal bleeding: Code(s): K62.5 - Hemorrhage of anus and rectum Status: Acute Assessment and Plan: Resolved. (3) Septic shock: Code(s): A41.9 - Sepsis, unspecified organism; R65.21 - Severe sepsis with septic shock Status: Acute Assessment and Plan: Resolved (4) UTI (urinary tract infection): Code(s): N39.0 - Urinary tract infection, site not specified Status: Acute Assessment and Plan: Continue antibiotics. (5) Dehydration: Code(s): E86.0 - Dehydration Status: Acute Assessment and Plan: continue to monitor bps, continue fluids (6) Encephalopathy: Code(s): G93.40 - Encephalopathy, unspecified Status: Acute Assessment and Plan: Resolved.? dehydration and polypharmacy (7) Urinary retention: Code(s): R33.9 - Retention of urine, unspecified Status: Acute Assessment and Plan: Neurogenic bladder Be in. (8) Delirium due to general medical condition: Code(s): F05 - Delirium due to known physiological condition Status: Acute Assessment and Plan: Resolved. (9) Atrial fibrillation with RVR: Code(s): I48.91 - Unspecified atrial fibrillation Status: Acute Assessment and Plan: Rate controlled. (10) Encephalopathy acute: Code(s): G93.40 - Encephalopathy, unspecified Status: Acute Assessment and Plan: Resolved. (11) Polypharmacy: Code(s): Z79.899 - Other senior care (current) drug therapy Status: Acute Assessment and Plan: Needs adjusted by her PCP use opiates Subjective Date/time seen: 11/19/20 11:47 Interval history: 71-year-old female with paroxysmal atrial fibrillation, coronary artery disease, dyslipidemia, and hypertension who presented to the emergency department earlier today via EMS from the [facility] at [facility] for evaluation of altered mental status. Pt had rectal bleeding which has stopped now pt still fells dizzy on transferring, ordered orthostatics continue fluids today. Review of Systems Review of Systems: All systems reviewed & are unremarkable except as noted in HPI and below Exam Const: General: other (Chronically ill looking.) Orientation/consciousness: patient oriented x3 HENMT: Head: normocephalic Resp: Effort & Inspection: normal respiratory effort Cardio: Jugular venous distension: no JVD Rate: regular rate Rhythm: regular rhythm Skin: Rashes: no rashes Wounds: no wounds Neuro: General: CN's II-XI intact bilaterally Cranial nerves: Yes Equal, round and reactive pupils present Cognition (Neuro): normal cognition Speech: normal speech Extrem: General: no pedal edema Objective Data Vital Signs Vital Signs: Vital Signs - 24 hr 11/18/20 14:00 11/18/20 20:00 11/18/20 22:00 Temperature 37.7 C H 36.9 C Pulse Rate 81 68 68 Respiratory Rate 16 20 20 Blood Pressure 97/60 L 114/55 L Pulse Oximetry 93 91 91 11/19/20 05:37 11/19/20 08:20 11/19/20 08:46 Temperature 37.2 C Pulse Rate 74 88 64 Respiratory Rate 20 20 Blood Pressure 121/58 L Pulse Oximetry 94 93 Intake/Output Intake/Output: Intake & Output 11/16/20 11/17/20 11/18/20 11/19/20 23:59 23:59 23:59 23:59 Intake Total 2260 2370 2170 1370 Output Total 1550 1725 1300 1000 Balance 710 645 870 370 Meds/Results Medications: Active Medications Generic Name Dose Route Start Last Admin Trade Name Freq PRN Reason Stop Dose Admin Acetaminophen 650 mg 11/14/20 22:44 11/16/20 09:52 Acetaminophen 650 Mg Suppository RECTAL 650 mg Q6H PRN Administration Mild Pain (1-3) or Fever Albuterol 2 puff 11/14/20 20:25
[2020-11-19 13:22] LABS: Methyl Alcohol Level None Detected (None Detected)
[2020-11-19 14:03] VITALS: BP 125/63; PULSE 76; RESP 20; TEMP 37.3; O2SAT 94
--- NOTE | 2020-11-19 15:03 | WPDGIPROGNO ---
Progress Note: A&P Assessment and Plan (1) Rectal bleeding: Code(s): K62.5 - Hemorrhage of anus and rectum Status: Acute Assessment and Plan: no bleeding for more than 2 days and hb stable after blood transfusion. she had bilateral sacral insufficiency fractures 11/03/20 and deferring colonoscopy in this setting specially since no more bleeding we can see her in office in 4-5 weeks and then reassess need of colonoscopy should be ok to resume blood thinners in 7-10 days because heart condition will follow [place], please call if questions (2) Acute on chronic blood loss anemia: Code(s): D62 - Acute posthemorrhagic anemia Status: Acute Assessment and Plan: received one unit prbc and hb low but unchanged (3) Septic shock: Code(s): A41.9 - Sepsis, unspecified organism; R65.21 - Severe sepsis with septic shock Status: Acute Assessment and Plan: now more pressors and resolved moved to floor (4) Encephalopathy: Code(s): G93.40 - Encephalopathy, unspecified Status: Acute Assessment and Plan: resolved, probably multifactorial (5) Atrial fibrillation with RVR: Code(s): I48.91 - Unspecified atrial fibrillation Status: Acute Assessment and Plan: blood thinners on hold in setting of GIB, probably resume in 7-10 days (6) Sacral insufficiency fracture: Code(s): M84.48XA - Pathological fracture, other site, initial encounter for fracture Status: Acute Assessment and Plan: CT scan 11/03/20 Subjective Date/time seen: 11/19/20 15:03 Interval history: she is in the floor, comfortable and eating. No more report of gib. Review of Systems Review of Systems: All systems reviewed & are unremarkable except as noted in HPI and below Exam Const: General: cooperative, comfortable, no acute distress, alert, awake and ill appearing chronically HENMT: Other: CPAP mask in place Eyes: Sclera: sclerae normal and scleral abnormality Neck: Neck: trachea midline and supple Resp: Auscultation: rhonchi and diminished lung sounds Cardio: Rhythm: abnormal rhythm Other: Paced rhythm GI: Inspection: non-distended GI Palp: Yes Soft to palpation and No Tenderness to palpation present (GI) Auscultation: normal bowel sounds : Other: Be catheter in place Urinary Catheter: Urinary Catheter: patent and draining and urine clear Skin: General skin exam: normal color and no rashes or lesions noted Neuro: Speech: normal speech Other: more alert and oriented today Extrem: Other: Pitting edema bilateral lower extremities Psych: Speech and movement: Clear speech present Objective Data Vital Signs Vital Signs: Vital Signs - 24 hr 11/18/20 20:00 11/18/20 22:00 11/19/20 05:37 Temperature 98.5 F 98.9 F Pulse Rate 68 68 74 Respiratory Rate 20 20 20 Blood Pressure 114/55 L 121/58 L Pulse Oximetry 91 91 94 11/19/20 08:20 11/19/20 08:46 11/19/20 14:03 Temperature 99.1 F Pulse Rate 88 64 76 Respiratory Rate 20 20 Blood Pressure 125/63 Pulse Oximetry 93 94 Intake/Output Intake/Output: Intake & Output 11/16/20 11/17/20 11/18/20 11/19/20 23:59 23:59 23:59 23:59 Intake Total 2260 2370 2170 1490 Output Total 1550 1725 1300 1000 Balance 710 645 870 490 Meds/Results Medications: Active Medications Generic Name Dose Route Start Last Admin Trade Name Freq PRN Reason Stop Dose Admin Acetaminophen 650 mg 11/14/20 22:44 11/16/20 09:52 Acetaminophen 650 Mg Suppository RECTAL 650 mg Q6H PRN Administration Mild Pain (1-3) or Fever Albuterol 2 puff 11/14/20 20:25 11/19/20 03:27 Albuterol Sulfate (*Sp) Aerosol 1 Puff INHALATION 2 puff QID PRN Administration Shortness Of Breath Alprazolam 0.25 mg 11/19/20 12:12 Alprazolam (*Crx) 0.25 Mg Tablet PO TID PRN Anxiety Apixaban 5 mg 11/14/20 22:40 11/15/20 00:15 Apixaban 5 Mg Tablet PO Not Given [facility] A
[2020-11-19 20:40] VITALS: BP 138/57; PULSE 65; RESP 20; TEMP 36.8; O2SAT 94
[2020-11-19] MEDS: ATORVASTATIN 40 MG TABLET PO (20:57)
[2020-11-19] MEDS: PANTOPRAZOLE 40 MG TABLET PO (21:01)
[2020-11-19 21:59] VITALS: BP 138/57; PULSE 65; RESP 20; TEMP 36.8; O2SAT 94
[2020-11-20] VITALS (9 sets, daily range): BP systolic 123–151; BP diastolic 56–110; PULSE 68–74; RESP 20–22; TEMP 36.8–37.4; O2SAT 90–94; BMI 10.0
[2020-11-20] MEDS: DEXTROSE 5%/LACTATED RINGERS 1,000 ML 75 ML IV CONT ×2 (05:36→20:35)
[2020-11-20 06:50] LABS: Hematocrit 28.4 % (37.0-47.0); Hemoglobin 8.6 g/dL (12.0-15.0); Mean Corpuscular HGB Conc 30.3 g/dl (32-36); Mean Platelet Volume 11.5 fl (7.4-10.4); Platelet Count Result 147 k/mm3 (150-375); Red Blood Count 2.87 M/mm3 (4.2-5.4); Red Cell Distribution Width 16.5 % (11.5-14.5); White Blood Count 2.8 K/mm3 (4.5-10.0)
[2020-11-20 07:20] LABS: Anion Gap 2 mmol/L (8-16); Blood Urea Nitrogen 9 mg/dL (7-17); Calcium 7.6 mg/dL (8.4-10.2); Carbon Dioxide 27 mmol/L (22-30); Chloride 109 mmol/L (98-107); Estimated Glomerular Filt Rate > 60; Glucose 86 mg/dL (65-105); Potassium 4.5 mmol/L (3.4-5.0); Sodium 138 mmol/L (137-145)
[2020-11-20] MEDS: LIDOCAINE 5% PATCH 2 PATCH TRANSDERM (08:36)
[2020-11-20] MEDS: gemfibroziL 600 MG TABLET PO ×2 (08:36→17:21)
[2020-11-20] MEDS: DIGOXIN 250 MCG TABLET PO (08:36)
[2020-11-20] MEDS: PANTOPRAZOLE 40 MG TABLET PO ×2 (08:36→20:38)
[2020-11-20] MEDS: GABAPENTIN 300 MG CAPSULE PO ×3 (08:36→17:21)
[2020-11-20] MEDS: FLUTICASONE PROP 110 MCG INHALER 12 GM (*SP) 2 PUFF INHALATION ×2 (08:37→20:36)
--- NOTE | 2020-11-20 14:26 | PM.IMPN ---
Progress Note: A&P Assessment and Plan (1) Acute on chronic blood loss anemia: Code(s): D62 - Acute posthemorrhagic anemia Status: Acute Assessment and Plan: Rectal bleed which has stopped now. Sp blood transfusion blood thinners on hold (2) Rectal bleeding: Code(s): K62.5 - Hemorrhage of anus and rectum Status: Acute Assessment and Plan: Resolved. (3) Septic shock: Code(s): A41.9 - Sepsis, unspecified organism; R65.21 - Severe sepsis with septic shock Status: Acute Assessment and Plan: Resolved (4) UTI (urinary tract infection): Code(s): N39.0 - Urinary tract infection, site not specified Status: Acute Assessment and Plan: Continue antibiotics. (5) Dehydration: Code(s): E86.0 - Dehydration Status: Acute Assessment and Plan: continue to monitor bps, continue fluids (6) Encephalopathy: Code(s): G93.40 - Encephalopathy, unspecified Status: Acute Assessment and Plan: Resolved.? dehydration and polypharmacy (7) Urinary retention: Code(s): R33.9 - Retention of urine, unspecified Status: Acute Assessment and Plan: Neurogenic bladder Be in. (8) Delirium due to general medical condition: Code(s): F05 - Delirium due to known physiological condition Status: Acute Assessment and Plan: Resolved. (9) Atrial fibrillation with RVR: Code(s): I48.91 - Unspecified atrial fibrillation Status: Acute Assessment and Plan: Rate controlled. (10) Encephalopathy acute: Code(s): G93.40 - Encephalopathy, unspecified Status: Acute Assessment and Plan: Resolved. (11) Polypharmacy: Code(s): Z79.899 - Other tank terminal gauger (current) drug therapy Status: Acute Assessment and Plan: Needs adjusted by her PCP use opiates Subjective Date/time seen: 11/20/20 14:26 Interval history: 71-year-old female with paroxysmal atrial fibrillation, coronary artery disease, dyslipidemia, and hypertension who presented to the emergency department earlier today via EMS from the [facility] for evaluation of altered mental status. Pt had rectal bleeding which has stopped now pt still fells dizzy on transferring, ordered orthostatics continue fluids today. Plan to discharge to rehab tomorrow. Review of Systems Review of Systems: All systems reviewed & are unremarkable except as noted in HPI and below ROS unobtainable: Yes unobtainable due to medical condition Exam Const: General: other (Chronically ill looking.) Orientation/consciousness: patient oriented x3 HENMT: Head: normocephalic Eyes: Pupils: Equal, round and reactive pupils present Resp: Effort & Inspection: normal respiratory effort Cardio: Jugular venous distension: no JVD Rate: regular rate Rhythm: regular rhythm Skin: Rashes: no rashes Wounds: no wounds Neuro: General: patient oriented x3 and CN's II-XI intact bilaterally Cranial nerves: Yes Equal, round and reactive pupils present Cognition (Neuro): normal cognition Speech: normal speech Extrem: General: no pedal edema Objective Data Vital Signs Vital Signs: Vital Signs - 24 hr 11/19/20 20:40 11/19/20 21:59 11/20/20 05:38 Temperature 36.8 C 36.8 C 36.8 C Pulse Rate 65 65 68 Respiratory Rate 20 20 20 Blood Pressure 138/57 L 138/57 L 134/70 Pulse Oximetry 94 94 94 11/20/20 08:36 Temperature Pulse Rate 68 Respiratory Rate Blood Pressure Pulse Oximetry Intake/Output Intake/Output: Intake & Output 11/17/20 11/18/20 11/19/20 11/20/20 23:59 23:59 23:59 23:59 Intake Total 2370 2170 2890 1150 Output Total 1725 1300 1750 500 Balance 036 272 8123 650 Meds/Results Medications: Active Medications Generic Name Dose Route Start Last Admin Trade Name Freq PRN Reason Stop Dose Admin Acetaminophen 650 mg 11/14/20 22:44 11/16/20 09:52 Acetaminophen 650 Mg Supposi
[2020-11-20] MEDS: ATORVASTATIN 40 MG TABLET PO (20:38)
[2020-11-20 20:43] LABS: SARS-CoV-2 RNA PCR Negative
--- NOTE | 2020-11-20 22:10 | PC.NURSE ---
Pt unable to stand for orthostatic vital signs.
[2020-11-21] VITALS (11 sets, daily range): BP systolic 121–168; BP diastolic 65–98; PULSE 65–95; RESP 18–20; TEMP 36.9–38; O2SAT 92–95
[2020-11-21] MEDS: LIDOCAINE 5% PATCH 2 PATCH TRANSDERM (08:38)
[2020-11-21] MEDS: GABAPENTIN 300 MG CAPSULE PO ×3 (08:38→17:15)
[2020-11-21] MEDS: DIGOXIN 250 MCG TABLET PO (08:38)
[2020-11-21] MEDS: gemfibroziL 600 MG TABLET PO ×2 (08:40→17:15)
[2020-11-21] MEDS: PANTOPRAZOLE 40 MG TABLET PO ×2 (08:40→20:53)
[2020-11-21] MEDS: FLUTICASONE PROP 110 MCG INHALER 12 GM (*SP) 2 PUFF INHALATION ×2 (08:48→20:56)
[2020-11-21] MEDS: DEXTROSE 5%/LACTATED RINGERS 1,000 ML 75 ML IV CONT ×2 (10:53→23:08)
--- NOTE | 2020-11-21 14:32 | PCNFU ---
Nutrition Follow-Up Complete: Inadequate oral intake related to altered mental status as evidenced by NPO diet. Goal: Patient to meet estimated nutritional needs. Patient has met current goal. No new goal. Pt current nutrition is Heart Healthy. Last recorded weight is 75.3 kg, down from 77 kg on admit. Bowel Motility:+BM reported 11/19 Labs Reviewed:No new labs to report. Meds Noted:Protonix,OsCAL, Lanoxin,Lipitor, Rocephin. Additional Notes: Nutrition follow up. Patient is tolerating 100% of a heart healthy diet as well as Ensure compact BID which is providing patient with an additional 220 kcals and 9 gms protein. Plans for discharge today. Monitoring: Follow up in 7 days.
[2020-11-21] MEDS: ACETAMINOPHEN 325 MG TABLET 650 MG PO (15:05)
--- NOTE | 2020-11-21 17:14 | PM.IMPN ---
Progress Note: A&P Assessment and Plan (1) Acute on chronic blood loss anemia: Code(s): D62 - Acute posthemorrhagic anemia Status: Acute Assessment and Plan: Rectal bleed which has stopped now. Sp blood transfusion blood thinners on hold (2) Rectal bleeding: Code(s): K62.5 - Hemorrhage of anus and rectum Status: Acute Assessment and Plan: Resolved. (3) Septic shock: Code(s): A41.9 - Sepsis, unspecified organism; R65.21 - Severe sepsis with septic shock Status: Acute Assessment and Plan: Resolved (4) UTI (urinary tract infection): Code(s): N39.0 - Urinary tract infection, site not specified Status: Acute Assessment and Plan: Continue antibiotics. Rpt UC and BC (5) Dehydration: Code(s): E86.0 - Dehydration Status: Acute Assessment and Plan: continue to monitor bps, continue fluids (6) Encephalopathy: Code(s): G93.40 - Encephalopathy, unspecified Status: Acute Assessment and Plan: Resolved.? dehydration and polypharmacy (7) Urinary retention: Code(s): R33.9 - Retention of urine, unspecified Status: Acute Assessment and Plan: Neurogenic bladder Be in. (8) Delirium due to general medical condition: Code(s): F05 - Delirium due to known physiological condition Status: Acute Assessment and Plan: Resolved. (9) Atrial fibrillation with RVR: Code(s): I48.91 - Unspecified atrial fibrillation Status: Acute Assessment and Plan: Rate controlled. (10) Encephalopathy acute: Code(s): G93.40 - Encephalopathy, unspecified Status: Acute Assessment and Plan: Resolved. (11) Polypharmacy: Code(s): Z79.899 - Other dedicated intermodal truck driver (current) drug therapy Status: Acute Assessment and Plan: Needs adjusted by her PCP use opiates Subjective Date/time seen: 11/21/20 17:14 Interval history: 71-year-old female with paroxysmal atrial fibrillation, coronary artery disease, dyslipidemia, and hypertension who presented to the emergency department earlier today via EMS from the Care Center at [facility] for evaluation of altered mental status. Pt had rectal bleeding which has stopped now pt still fells dizzy on transferring, ordered orthostatics continue fluids today. Pt not standing up too tired, spiking fevers today, UC ordered Review of Systems Review of Systems: All systems reviewed & are unremarkable except as noted in HPI and below Exam Const: General: ill appearing and other (Chronically ill looking.) Resp: Effort & Inspection: normal respiratory effort and able to speak in complete sentences Skin: Rashes: no rashes Wounds: no wounds Neuro: General: patient oriented x3 and CN's II-XI intact bilaterally Cranial nerves: Yes CN's II-XII intact bilaterally, Yes Equal, round and reactive pupils present and Yes Bilaterally intact EOM present Cognition (Neuro): normal cognition Speech: normal speech Extrem: General: no pedal edema Objective Data Vital Signs Vital Signs: Vital Signs - 24 hr 11/20/20 20:00 11/20/20 20:01 11/20/20 22:00 Temperature 37.4 C 37.3 C 37.2 C Pulse Rate 69 74 68 Respiratory Rate 20 20 22 H Blood Pressure 126/70 139/72 123/66 Pulse Oximetry 90 92 91 11/21/20 06:00 11/21/20 07:49 11/21/20 08:38 Temperature 37.1 C Pulse Rate 65 84 Respiratory Rate 20 Blood Pressure 126/65 Pulse Oximetry 92 92 11/21/20 14:00 11/21/20 15:05 11/21/20 15:28 Temperature 38.0 C H 38.0 C H Pulse Rate 95 Respiratory Rate 20 Blood Pressure 130/66 130/66 Pulse Oximetry 95 11/21/20 16:16 11/21/20 16:17 11/21/20 16:35 Temperature 37.7 C H Pulse Rate Respiratory Rate Blood Pressure 139/87 168/98 H Pulse Oximetry Intake/Output Intake/Output: Intake & Output 11/18/20 11/19/20 11/20/20 11/21/20 23:59 23:59 23:59 23:59 Intake Total 0012 8725 4838 092
[2020-11-21] MEDS: ALBUTEROL SULFATE (*SP) AEROSOL 1 PUFF 2 PUFF INHALATION (17:25)
[2020-11-21] MEDS: ATORVASTATIN 40 MG TABLET PO (20:53)
[2020-11-22 06:00] VITALS: BP 130/64; PULSE 59; RESP 18; TEMP 36.9; O2SAT 91
[2020-11-22 06:09] LABS: Hemoglobin 8.5 g/dL (12.0-15.0); Mean Corpuscular HGB Conc 30.4 g/dl (32-36); Mean Corpuscular Hemoglobin 29.6 pg (26-34); Mean Corpuscular Volume 97.6 fl (80-100); Mean Platelet Volume 11.7 fl (7.4-10.4); Platelet Count Result 167 k/mm3 (150-375); Red Blood Count 2.87 M/mm3 (4.2-5.4); Red Cell Distribution Width 16.1 % (11.5-14.5); White Blood Count 2.4 K/mm3 (4.5-10.0)
[2020-11-22 06:24] LABS: Anion Gap 3 mmol/L (8-16); Blood Urea Nitrogen 8 mg/dL (7-17); Calcium 7.9 mg/dL (8.4-10.2); Carbon Dioxide 29 mmol/L (22-30); Chloride 107 mmol/L (98-107); Estimated Glomerular Filt Rate > 60; Glucose 85 mg/dL (65-105); Potassium 4.4 mmol/L (3.4-5.0); Sodium 139 mmol/L (137-145)
[2020-11-22] MEDS: gemfibroziL 600 MG TABLET PO (09:54)
[2020-11-22] MEDS: GABAPENTIN 300 MG CAPSULE PO (09:55)
[2020-11-22] MEDS: FLUTICASONE PROP 110 MCG INHALER 12 GM (*SP) 2 PUFF INHALATION (09:56)
[2020-11-22 09:58] VITALS: PULSE 68
[2020-11-22] MEDS: DIGOXIN 250 MCG TABLET PO (09:58)
[2020-11-22] MEDS: LIDOCAINE 5% PATCH 2 PATCH TRANSDERM (09:59)
[2020-11-22] MEDS: PANTOPRAZOLE 40 MG TABLET PO (10:00)
--- NOTE | 2020-11-22 11:01 | PM.DS ---
DS: Admitting Diagnosis Admitting Diagnosis Admitting Diagnosis: AMS. DS: Discharge Diagnosis Discharge Diagnosis (1) Acute on chronic blood loss anemia: Code(s): D62 - Acute posthemorrhagic anemia Status: Acute Assessment and Plan: Rectal bleed which has stopped now. Sp blood transfusion Blood thinners on hold until November Seen by gi continue with protonix follow up in 3-4 weeks time. (2) Rectal bleeding: Code(s): K62.5 - Hemorrhage of anus and rectum Status: Acute Assessment and Plan: Resolved. (3) Septic shock: Code(s): A41.9 - Sepsis, unspecified organism; R65.21 - Severe sepsis with septic shock Status: Acute Assessment and Plan: Resolved (4) UTI (urinary tract infection): Code(s): N39.0 - Urinary tract infection, site not specified Status: Acute Assessment and Plan: Fever resolved. Continue antibiotics for 5 more days. Rpt UC and BC pending, previous UC and BC were negative. (5) Dehydration: Code(s): E86.0 - Dehydration Status: Resolved (6) Encephalopathy: Code(s): G93.40 - Encephalopathy, unspecified Status: Acute Assessment and Plan: Resolved.? dehydration and polypharmacy (7) Urinary retention: Code(s): R33.9 - Retention of urine, unspecified Status: Acute Assessment and Plan: Neurogenic bladder Multani in. (8) Delirium due to general medical condition: Code(s): F05 - Delirium due to known physiological condition Status: Resolved Assessment and Plan: Resolved. (9) Atrial fibrillation with RVR: Code(s): I48.91 - Unspecified atrial fibrillation Status: Chronic Assessment and Plan: Rate controlled. (10) Encephalopathy acute: Code(s): G93.40 - Encephalopathy, unspecified Status: Resolved Assessment and Plan: Resolved. (11) Polypharmacy: Code(s): Z79.899 - Other chcf (current) drug therapy Status: Acute Assessment and Plan: Needs adjusted by her PCP use opiates OTHER PROBLEMS Sacral fracture from CT DS: Summary Hospital Course Hospital Course: 71-year-old female with paroxysmal atrial fibrillation, coronary artery disease, dyslipidemia, and hypertension who presented to the emergency department earlier today via EMS from the [facility] for evaluation of altered mental status. Pt had rectal bleeding which has stopped now pt still fells dizzy on transferring, pt had fluids feels better. Pt seen by GI MD. pt has history of sacral fracture so no colonscopy was completed if bleeding continues pt can follow in his GI clinic. Encephalopathy is resolved. 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 pt can start back on blood thinners on november 25. Time Spent with Patient Time attestation: Total time spent providing and/or coordinating discharge services:40 minutes on day of discharge Exam Const: General: other (Chronically ill looking.) Eyes: General: appearance normal, both eyes and all related structures Neck: Neck: no lymphadenopathy, supple and no JVD Resp: Effort & Inspection: normal respiratory effort and able to speak in complete sentences Auscultation: clear to auscultation bilaterally and diminished lung sounds Cardio: Jugular venous distension: no JVD Rate: regular rate Rhythm: regular rhythm Skin: Rashes: no rashes Wounds: no wounds Neuro: General: patient oriented x3 and CN's II-XI intact bilaterally Cranial nerves: Yes CN's II-XII intact bilaterally, Yes Equal, round and reactive pupils present and Yes Bilaterally intact EOM present Cognition (Neuro): normal cognition Speech: normal speech Gait exam (Neuro): Other gait observations present (Wheel chair bound) Motor exam (neuro): Other motor observations present (Wheel chair bound.) Extrem: General: no pedal edema DS: Data Data Completed and Pending Labs on day of discharge: Labs fro
== END 2020-11-22 12:55 | DRG 698 ==
LOC: ANHED 12:43 → ANH3MEDSUR 13:54 → ANHICU 11-15 02:00 → ANH3MEDSUR 11-22 11:01 → ANHICU 11-27 10:19
PROVIDERS: Internal Medicine; Internal Medicine Critical Care Medicine; Physician Assistant; Admitting Provider Family Medicine; Emergency Provider Emergency Medicine; PCP Family Medicine; Visit Provider Family Medicine
DX: T83.511A Infection and inflammatory reaction due to indwelling urethral catheter, initial encounter (principal); A41.9 Sepsis, unspecified organism; R65.21 Severe sepsis with septic shock; G93.41 Metabolic encephalopathy; G92 Toxic encephalopathy; K62.5 Hemorrhage of anus and rectum; D62 Acute posthemorrhagic anemia; F05 Delirium due to known physiological condition; I48.20 Chronic atrial fibrillation, unspecified; M84.48XA Pathological fracture, other site, initial encounter for fracture; N39.0 Urinary tract infection, site not specified; E86.0 Dehydration; T42.8X5A Adverse effect of antiparkinsonism drugs and other central muscle-tone depressants, initial encounter; Z20.822 Contact with and (suspected) exposure to COVID-19; I11.0 Hypertensive heart disease with heart failure; D53.9 Nutritional anemia, unspecified; R33.9 Retention of urine, unspecified; J45.909 Unspecified asthma, uncomplicated; G47.33 Obstructive sleep apnea (adult) (pediatric); I25.10 Atherosclerotic heart disease of native coronary artery without angina pectoris; E78.5 Hyperlipidemia, unspecified; M81.0 Age-related osteoporosis without current pathological fracture; Z79.899 Other long term (current) drug therapy; Z95.5 Presence of coronary angioplasty implant and graft; Z95.0 Presence of cardiac pacemaker; Z79.01 Long term (current) use of anticoagulants; N31.9 Neuromuscular dysfunction of bladder, unspecified
CPT/HCPCS: 36415; 36430; 36600; 70450; 71045; 80048; 80053; 80076; 80307; 81001; 82140; 82375; 82550; 82805; 82948; 83050; 83605; 83735; 84100; 84484; 84600; 85014; 85018; 85025; 85027; 85610; 86140; 86850; 86900; 86901; 86923; 87040; 87077; 87086; 87088; 87186; 92610; 93005; 94002; 94003; 94640; 94660; 96361; 96365; 96366; 96367; 96368; 96372; 96375; 97110; 97161; 97165; 97530; 97535; 99285; A9270; C1751; C9113; C9803; G0378; J0610; J0696; J1160; J2310; J2370; J3475; J7030; J7042; J7060; J7120; J7121; P9016; U0003; U0005

== ENCOUNTER 2022-03-15 08:37 | Emergency (ER) | payer MEDICARE, MEDICAID, SELFPAY ==
[2022-03-15] VITALS (17 sets, daily range): BP systolic 145–167; BP diastolic 65–93; PULSE 66–72; RESP 16–18; O2SAT 93–100
--- NOTE | ~2022-03-15 | XR_ITS ---
XR shoulder RT min 2V DATE: 03/15/2022 09:30 INDICATION: Right shoulder pain. Previous dislocation. TECHNIQUE: 2 views COMPARISON: 11/05/2020 right shoulder FINDINGS: These are nonstandard views. There appears to be anterior dislocation at the glenohumeral j oin with the humeral head in subcoracoid position. Images and mild widening at the right acromioclavicular joint. Diffuse osteopenia. Pacemaker wires are noted. Right basilar infiltrate or atelectasis, elevated right diaphragm. IMPRESSION: Suggestion of anterior dislocation at the right glenohumeral joint; limited examination Consider CT right shoulder examination for more definitive evaluation Reviewed, dictated and finalized at location [facility].
--- NOTE | ~2022-03-15 | CT_ITS ---
CT shoulder RT wo con DATE: 03/15/2022 10:41 INDICATION: Right shoulder injury, pain TECHNIQUE: Axial images through the shoulder with sagittal and coronal reconstructions Exam dose: 281.09 mGy-cm total exam DLP. COMPARISON: 03/15/2022, 11/05/2020 right shoulder FINDINGS: Is anterior glenohumeral joint dislocation with fracture of the glenoid process. These prominent osteoarthritic spurring of the right humeral head. IMPRESSION: Anterior dislocation of the right glenohumeral joint and fractured glenoid process Prominent osteoarthritic change of the humeral head Reviewed, dictated and finalized at [facility]. Reviewed, dictated and finalized at location [facility].
--- NOTE | 2022-03-15 09:48 | ED.UPPEXIN ---
HPI - Extremity Injury (Upper) General Chief Complaint: Extremity Injury, Upper <Milena Gaytan PA-C - Last Filed: 03/15/22 11:57> Stated Complaint: right shoulder pain <CORBIN Slater Last Filed: 03/15/22 11:57> Time Seen by Provider: 03/15/22 09:15 <CORBIN Slater Last Filed: 03/15/22 11:57> Source: patient <CORBIN Slater Last Filed: 03/15/22 11:57> Mode of arrival: ambulatory <CORBIN Slater Last Filed: 03/15/22 11:57> Limitations: no limitations <CORBIN Slater Last Filed: 03/15/22 11:57> History of Present Illness HPI narrative: This is a 72-year-old female that presents to the emergency department for right shoulder pain. Reports she was shaking out a blanket to old it and felt immediate pain in the shoulder. Reports history of dislocation of this shoulder. Does report the shoulder had been bothering her even prior to the incident today. Reports decreased range of motion due to pain. Denies numbness. <CORBIN Slater Last Filed: 03/15/22 11:57> Related Data Home Medications: Home Medications Medication Instructions Recorded Confirmed atorvastatin 40 mg tablet 40 mg PO HS 11/03/20 02/10/22 gabapentin 300 mg capsule 300 mg PO TID 11/03/20 02/10/22 magnesium hydroxide 400 mg/5 mL 30 ml PO DAILY PRN Constipation 11/03/20 02/10/22 oral suspension (Milk of Magnesia) acetaminophen 500 mg capsule 1,000 mg PO Q6H PRN 12/09/21 02/10/22 arginine-vitamin C-vitamin E oral 9.2 g PO .qd 12/09/21 02/10/22 4.5 gram-156 mg/9.2 gram powder pkt (Arginaid) aspirin 81 mg tablet,delayed 81 mg PO DAILY 12/09/21 02/10/22 release (Adult Aspirin Regimen) calcium carbonate 500 mg calcium 500 mg PO DAILY 12/09/21 02/10/22 (1,250 mg) tablet cholecalciferol (vitamin D3) 1,250 1,250 mcg PO WEEKLY 12/09/21 02/10/22 mcg (50,000 unit) capsule cyclobenzaprine 5 mg tablet 5 mg PO TID PRN 12/09/21 02/10/22 digoxin 125 mcg (0.125 mg) tablet 125 mcg PO DAILY 12/09/21 02/10/22 fluticasone propionate 44 1 inh inhalation ONCE 12/09/21 02/10/22 mcg/actuation HFA aerosol inhaler (Flovent HFA) glucosamine sulfate 500 mg capsule 500 mg PO DAILY 12/09/21 02/10/22 lidocaine 4 % topical patch 1 patch topical DAILY PRN 12/09/21 02/10/22 (Aspercreme (lidocaine)) mirabegron 25 mg tablet,extended 25 mg PO DAILY 12/09/21 02/10/22 release 24 hr (Myrbetriq) omeprazole 20 mg capsule,delayed 20 mg PO BID 12/09/21 02/10/22 release salmeterol 50 mcg/dose blister 1 inh inhalation Q12H 12/09/21 02/10/22 powder for inhalation (Serevent Diskus) acyclovir 800 mg tablet 800 mg PO DAILY 02/10/22 02/10/22 hydrocodone 5 mg-acetaminophen 325 1 tablet PO Q6H PRN 02/10/22 02/10/22 mg tablet prednisone 10 mg tablet 10 mg PO TID 02/10/22 02/10/22 <Milena Gaytan PA-C - Last Filed: 03/15/22 11:57> Allergies/Adverse Reactions: Allergies Allergy/AdvReac Type Severity Reaction Status Date / Time SAM Inhibitors Allergy Unknown Verified 03/15/22 09:35 erythromycin base Allergy Unknown Verified 03/15/22 09:35 sulfamethizole Allergy Unknown Verified 03/15/22 09:35 <Milena Gaytan PA-C - Last Filed: 03/15/22 11:57> Review of Systems Review of Systems: CONSTITUTIONAL: Denies fever MUSCULOSKELETAL: Reports joint pain, and myalgia. NEUROLOGIC: Denies numbness, or weakness. <Milena Gaytan PA-C - Last Filed: 03/15/22 11:57> All systems reviewed & are unremarkable except as noted in HPI and below <Milena Gaytan PA-C - Last Filed: 03/15/22 11:57> [facility] Past Medical History Medical History: Medical History Acute on chronic blood loss anemia Asthma Atrial fibrillation On chronic anticoagulation with Eliquis. BMI 36.0-36.9,adult BMI greater than 30 Congestive heart failure Coronary artery disease Stent x 2 in [address] Manjinder Bueno. Current use of long
[2022-03-15] MEDS: MORPHINE SULFATE (*CRX) 4 MG/ML INJ IV PUSH (10:20)
[2022-03-15] MEDS: ONDANSETRON INJ 4 MG/2 ML VIAL IV PUSH (10:20)
--- NOTE | 2022-03-15 10:34 | PC.NURSE ---
Patient to CT
[2022-03-15] MEDS: HYDROcodone/acetaminophen (*CRX) 5-325 MG TABLET 1 TAB PO (11:52)
== END 2022-03-15 12:22 | disposition home or self-care (01) ==
PROVIDERS: Emergency Provider Emergency Medicine; PCP Family Medicine
DX: S43.011A Anterior subluxation of right humerus, initial encounter (principal); I48.91 Unspecified atrial fibrillation; I50.9 Heart failure, unspecified; I11.0 Hypertensive heart disease with heart failure; I25.10 Atherosclerotic heart disease of native coronary artery without angina pectoris; E78.5 Hyperlipidemia, unspecified; E78.1 Pure hyperglyceridemia; I73.9 Peripheral vascular disease, unspecified; E55.9 Vitamin D deficiency, unspecified; G62.9 Polyneuropathy, unspecified; Z95.5 Presence of coronary angioplasty implant and graft; Z79.01 Long term (current) use of anticoagulants; Z79.82 Long term (current) use of aspirin; Z95.0 Presence of cardiac pacemaker; X50.9XXA Other and unspecified overexertion or strenuous movements or postures, initial encounter
CPT/HCPCS: 73030; 73200; 96374; 96375; 99284; A9270; J2270; J2405

== ENCOUNTER 2022-09-16 00:59 | Day surgery (SDC) | payer MEDICARE, MEDICAID, SELFPAY ==
[2022-09-10 10:36] VITALS: BMI 32.5
--- NOTE | 2022-09-15 15:28 | PM.HPGS ---
History of Present Illness History of Present Illness Consent: Risks, benefits, and alternatives have been discussed and questions answered. Patient agrees to proceed with procedure. Chief complaint: neoplasm screening Narrative: Arin Mcmillan is a 72 year old female was referred for colon cancer screening. Review of Systems Review of Systems: All systems reviewed & are unremarkable except as noted in HPI and below PMFSH Past Medical History Medical History Acute on chronic blood loss anemia Asthma Atrial fibrillation On chronic anticoagulation with Eliquis. BMI 36.0-36.9,adult BMI greater than 30 Congestive heart failure Coronary artery disease Stent x 2 in [address] Manjinder Bueno. Current use of intermodal owner operator truck driver anticoagulation On Eliquis for stroke prophylaxis given atrial fibrillation. Essential hypertension Hyperlipidemia Hypertension Hypertriglyceridemia Neuropathy Peripheral arterial disease Post-menopausal osteoporosis Rectal bleeding Urinary retention Vitamin D deficiency Surgical History Surgical History History of permanent cardiac pacemaker placement History of shoulder surgery Left shoulder arthroscopy. Family History Family History Father Arthritis Mother Diabetes mellitus Cancer Other Unknown family medical history Social History Social History Social History: The patient lives alone in [place] but is currently doing rehab as per HPI. Previously . Retired from [employer]. She has 3 grown children. No alcohol, tobacco, or illicit substance use. Her daughter, Elvia Elizalde, is listed as her emergency contact. Code status: Full code. Smoking status: Never smoker Alcohol intake: current Substance use: never Substance use type: does not use Living arrangements: assisted living Gender identity (if verbalized by the patient): Female Spiritual care concerns: No Meds Home Medications and Allergies Home Medications Medication Instructions Recorded Confirmed Type atorvastatin 40 mg tablet 40 mg PO HS 11/03/20 09/10/22 History gabapentin 300 mg capsule 300 mg PO QID 11/03/20 09/10/22 History acetaminophen 500 mg capsule 1,000 mg PO Q6H PRN Pain 12/09/21 09/10/22 History aspirin 81 mg tablet,delayed 81 mg PO DAILY 12/09/21 09/10/22 History release (Adult Aspirin Regimen) cholecalciferol (vitamin D3) 1,250 1,250 mcg PO [id number] 12/09/21 09/10/22 History mcg (50,000 unit) capsule digoxin 125 mcg (0.125 mg) tablet 125 mcg PO EVERY OTHER DAY 12/09/21 09/10/22 History fluticasone propionate 44 2 inh inhalation BID 12/09/21 09/10/22 History mcg/actuation HFA aerosol inhaler (Flovent HFA) glucosamine sulfate 500 mg capsule 500 mg PO DAILY 12/09/21 09/10/22 History mirabegron 25 mg tablet,extended 25 mg PO HS 12/09/21 09/10/22 History release 24 hr (Myrbetriq) omeprazole 20 mg capsule,delayed 20 mg PO BID 12/09/21 09/10/22 History release salmeterol 50 mcg/dose blister 1 inh inhalation Q12H 12/09/21 09/10/22 History powder for inhalation (Serevent Diskus) ferrous sulfate 325 mg (65 mg 325 mg PO DAILY #90 tabs 02/25/22 09/10/22 Rx iron) tablet cyclobenzaprine 5 mg tablet 5 mg PO TID PRN muscle spasm #30 08/03/22 09/10/22 Rx tabs apixaban 5 mg tablet (Eliquis) 5 mg PO BID 09/10/22 09/16/22 History calcium 500 mg tablet 500 mg PO DAILY 09/10/22 09/10/22 History hydrocodone 5 mg-acetaminophen 325 1 tablet PO HS PRN pain 09/10/22 09/10/22 History mg tablet Allergies Allergy/AdvReac Type Severity Reaction Status Date / Time SAM Inhibitors Allergy Unknown Verified 09/16/22 10:57 Beta-Blockers Allergy Unknown Verified 09/16/22 10:57 (Beta-Adrenergic Bloc erythromycin base Allergy Unknown Ve
[2022-09-16 11:00] VITALS: BP 173/85; PULSE 80; RESP 24; TEMP 36.2; O2SAT 100; BMI 32.7
[2022-09-16] MEDS: LACTATED RINGERS 1,000 ML 150 ML IV CONT (11:08)
--- NOTE | 2022-09-16 11:18 | WPDANESEPPF ---
Anes - Initial Pre Proc Eval Procedure: Operation Date: 09/16/22 12:00 Proposed Procedures p Screening Colonoscopy - Braden Christian MD Date/Time: 09/16/22 11:18 Surgeon: Braden Christian MD Pre Op Diagnosis: neoplasm screening Patient Data Age: 72 Gender: F Height: 1.5 m Weight: 73.5 kg Last Vital Signs Temp 36.2 C L 09/16/22 11:00 Pulse 80 09/16/22 11:00 Resp 24 H 09/16/22 11:00 BP 173/85 H 09/16/22 11:00 Pulse Ox 100 09/16/22 11:00 O2 Del Method Room Air 09/16/22 11:00 Allergies Allergy/AdvReac Type Severity Reaction Status Date / Time SAM Inhibitors Allergy Unknown Verified 09/16/22 10:57 Beta-Blockers Allergy Unknown Verified 09/16/22 10:57 (Beta-Adrenergic Bloc erythromycin base Allergy Unknown Verified 09/16/22 10:57 sulfamethizole Allergy Unknown Verified 09/16/22 10:57 Home Medications Medication Instructions Recorded Confirmed Type atorvastatin 40 mg tablet 40 mg PO HS 11/03/20 09/10/22 History gabapentin 300 mg capsule 300 mg PO QID 11/03/20 09/10/22 History acetaminophen 500 mg capsule 1,000 mg PO Q6H PRN Pain 12/09/21 09/10/22 History aspirin 81 mg tablet,delayed 81 mg PO DAILY 12/09/21 09/10/22 History release (Adult Aspirin Regimen) cholecalciferol (vitamin D3) 1,250 1,250 mcg PO [id number] 12/09/21 09/10/22 History mcg (50,000 unit) capsule digoxin 125 mcg (0.125 mg) tablet 125 mcg PO EVERY OTHER DAY 12/09/21 09/10/22 History fluticasone propionate 44 2 inh inhalation BID 12/09/21 09/10/22 History mcg/actuation HFA aerosol inhaler (Flovent HFA) glucosamine sulfate 500 mg capsule 500 mg PO DAILY 12/09/21 09/10/22 History mirabegron 25 mg tablet,extended 25 mg PO HS 12/09/21 09/10/22 History release 24 hr (Myrbetriq) omeprazole 20 mg capsule,delayed 20 mg PO BID 12/09/21 09/10/22 History release salmeterol 50 mcg/dose blister 1 inh inhalation Q12H 12/09/21 09/10/22 History powder for inhalation (Serevent Diskus) ferrous sulfate 325 mg (65 mg 325 mg PO DAILY #90 tabs 02/25/22 09/10/22 Rx iron) tablet cyclobenzaprine 5 mg tablet 5 mg PO TID PRN muscle spasm #30 08/03/22 09/10/22 Rx tabs apixaban 5 mg tablet (Eliquis) 5 mg PO BID 09/10/22 09/16/22 History calcium 500 mg tablet 500 mg PO DAILY 09/10/22 09/10/22 History hydrocodone 5 mg-acetaminophen 325 1 tablet PO HS PRN pain 09/10/22 09/10/22 History mg tablet Patient hx anesthesia problems: none Family hx anesthesia problems: none Results Review: All pre-operative results and documents have been reviewed as part of the pre-operative evaluation. [facility] Past Medical History Medical History Acute on chronic blood loss anemia Asthma Atrial fibrillation On chronic anticoagulation with Eliquis. BMI 36.0-36.9,adult BMI greater than 30 Congestive heart failure Coronary artery disease Stent x 2 in [address] Manjinder Bueno. Current use of manager intermediate anticoagulation On Eliquis for stroke prophylaxis given atrial fibrillation. Essential hypertension Hyperlipidemia Hypertension Hypertriglyceridemia Neuropathy Peripheral arterial disease Post-menopausal osteoporosis Rectal bleeding Urinary retention Vitamin D deficiency Surgical History Surgical History History of permanent cardiac pacemaker placement History of shoulder surgery Left shoulder arthroscopy. Family History Family History Father Arthritis Mother Diabetes mellitus Cancer Other Unknown family medical history Social History Social History Social History: The patient lives alone in [place] but is currently doing rehab as per [facility]. Previously . Retired from [employer]. She has 3 grown children. No alcohol, tobacco, or illicit substance u
[2022-09-16 12:14] VITALS: BP 90/40; PULSE 80; RESP 12; O2SAT 96
[2022-09-16 12:24] VITALS: BP 114/55; PULSE 72; RESP 18; O2SAT 100
[2022-09-16 12:34] VITALS: BP 127/66; PULSE 71; RESP 20; O2SAT 98
== END 2022-09-16 12:50 | disposition home or self-care (01) ==
PROVIDERS: PCP Family Medicine; Visit Provider Internal Medicine Gastroenterology
PROC: 0DJD8ZZ Inspection of Lower Intestinal Tract, Via Natural or Artificial Opening Endoscopic (ICD-10-PCS; CPT 45378; principal; 2022-09-16 12:00)
DX: Z12.11 Encounter for screening for malignant neoplasm of colon (principal); K57.30 Diverticulosis of large intestine without perforation or abscess without bleeding; I11.0 Hypertensive heart disease with heart failure; I50.9 Heart failure, unspecified; I48.91 Unspecified atrial fibrillation; I25.10 Atherosclerotic heart disease of native coronary artery without angina pectoris; E78.5 Hyperlipidemia, unspecified; G62.9 Polyneuropathy, unspecified; I73.9 Peripheral vascular disease, unspecified; M81.0 Age-related osteoporosis without current pathological fracture; E55.9 Vitamin D deficiency, unspecified; J45.909 Unspecified asthma, uncomplicated; Z95.5 Presence of coronary angioplasty implant and graft; Z79.82 Long term (current) use of aspirin; Z79.51 Long term (current) use of inhaled steroids; Z79.01 Long term (current) use of anticoagulants; Z95.0 Presence of cardiac pacemaker; E66.9 Obesity, unspecified; Z68.32 Body mass index [BMI] 32.0-32.9, adult
CPT/HCPCS: G0121; J2704; J7120

== ENCOUNTER 2022-10-20 09:48 | Outpatient (CLI) | payer MEDICARE, MEDICAID, SELFPAY ==
--- NOTE | ~2022-10-20 | MM_ITS ---
EXAMINATION: MM screening francois BI w claudia HISTORY: Screening mammogram TECHNIQUE: Craniocaudal and mediolateral oblique 3-D tomosynthesis images were obtained and synthetic 2-D images were generated. CAD analysis was submitted and interpreted. COMPARISON: No prior mammogram is available for comparison at this institution. BREAST PARENCHYMAL COMPOSITION: There are scattered areas of fibroglandular density. FINDINGS: There are scattered benign calcifications bilaterally. There is no evidence of suspicious m ass, calcification, or architectural distortion to suggest malignancy in either breast. There has bee n no suspicious interval change. IMPRESSION: 1. No mammographic evidence of malignancy. 2. Recommend routine screening mammography in one year. BI-RADS Category 2: Benign finding(s). Reviewed, dictated and finalized at location A. 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
== END 2022-10-20 09:49 | disposition home or self-care (01) ==
PROVIDERS: PCP Family Medicine; Visit Provider Family Medicine
DX: Z12.31 Encounter for screening mammogram for malignant neoplasm of breast (principal)
CPT/HCPCS: 77063; 77067

== ENCOUNTER 2022-11-16 19:47 | Emergency (ER) | payer MEDICARE, MEDICAID, SELFPAY ==
[2022-11-16] VITALS (12 sets, daily range): BP systolic 155–172; BP diastolic 67–85; PULSE 62–77; RESP 10–21; TEMP 36.4; O2SAT 100
--- NOTE | ~2022-11-16 | CT_ITS ---
EXAMINATION: CT brain wo con DATE: 11/16/2022 20:26 INDICATION: Unresponsive. TECHNIQUE: Computed tomography (CT) of the head was performed without intravenous contrast. The mA wa s adjusted according to patient size. Iterative reconstruction technique was employed. The dose-lengt h product was 681.00 mGy-cm. COMPARISON: Head CT 11/14/2020 FINDINGS: There is an acute right frontotemporal parietal subdural hematoma that is hyperdense and hy podense relative to johnson matter with maximum thickness of 1.7 cm. There is right-sided uncal herniati on. There is 1.6 cm leftward midline shift at the foramen of Monro. There is effacement of the supras ellar and prepontine cisterns. There is acute intraparenchymal hematoma in the robby and midbrain with extension into the fourth ventricle. There is no acute ischemic infarct or abnormal mass lesion. The re are likely changes of ocular lens replacement surgeries. There is mucosal thickening in the parana jolene sinuses. There is a trace right mastoid effusion. IMPRESSION: 1. Acute right frontotemporal parietal subdural hematoma with 1.7 cm in greatest thickness. 2. Acute intraparenchymal hematoma in the robby and midbrain with extension into the fourth ventricle. 3. Right-sided uncal herniation. 4. 1.6 cm leftward midline shift. Reviewed, dictated and finalized at location A. OTICS AND VICE DETECTIVE IMPRESSION: 1. Acute right frontotemporal parietal subdural hematoma with 1.7 cm in greates t thickness. 2. Acute intraparenchymal hematoma in the robby and midbrain with extension into the fourth ventricle. 3. Right-sided uncal herniation. 4. 1.6 cm leftward midline shift.
--- NOTE | ~2022-11-16 | CT_ITS ---
EXAMINATION: CT cervical spine wo con DATE: 11/16/2022 20:32 INDICATION: Unresponsive. Fall. TECHNIQUE: Computed tomography (CT) of the cervical spine was performed without intravenous contrast. Automated exposure control and iterative reconstruction technique were employed. The dose-length pro duct was 503.78 mGy-cm. COMPARISON: None FINDINGS: The visualized portions of the lung apices demonstrate mild pulmonary edema. There are airs pace opacities in the upper lobes, consistent with atelectasis versus pneumonia. There is 10 degrees dextroscoliosis of cervical spine. There is 2 mm anterolisthesis of C4 on C5, C5 on C6, and C7 on T1. Vertebral body heights are normal. There is moderately decreased disc height at C3-C4 and severely d ecreased disc height from C4-C5 through C6-C7. The following disc levels are specifically discussed: C2-C3: There is mild right uncovertebral joint osteoarthritis. There is moderate right and severe lef t facet joint osteoarthritis. There is mild left neural foraminal stenosis. There is no central canal stenosis. C3-C4: There is mild right and severe left uncovertebral joint osteoarthritis. There is severe bilate ral facet joint osteoarthritis. There is mild left neural foraminal stenosis. There is no central can al stenosis. C4-C5: There is moderate bilateral uncovertebral joint osteoarthritis. There is severe bilateral face t joint osteoarthritis. There is mild bilateral neural foraminal stenosis. There is mild central janell l stenosis. C5-C6: There is severe bilateral uncovertebral joint osteoarthritis. There is severe bilateral facet joint osteoarthritis. There is mild bilateral neural foraminal stenosis. There is mild central canal stenosis. C6-C7: There is moderate right and severe left uncovertebral joint osteoarthritis. There is severe bi lateral facet joint osteoarthritis. There is mild bilateral neural foraminal stenosis. There is mild central canal stenosis. C7-T1: There is no uncovertebral joint osteoarthritis. There is severe bilateral facet joint osteoart hritis. There is mild left neural foraminal stenosis. There is no central canal stenosis. IMPRESSION: 1. No fracture. 2. Severe cervical spondylosis. 3. Cervical dextroscoliosis. 4. Mild pulmonary edema and bilateral atelectasis versus pneumonia. Reviewed, dictated and finalized at location A. CARE CONSULTANT
--- NOTE | ~2022-11-16 | XR_ITS ---
EXAMINATION: XR chest ET placement DATE: 11/16/2022 20:16 INDICATION: Intubation. TECHNIQUE: A single frontal view of the chest was obtained. COMPARISON: Chest single view 11/14/2020 FINDINGS: There is chronic elevation of right hemidiaphragm. There is mild atelectasis at right lung base. There is an interstitial pattern, consistent mild pulmonary edema. No pleural effusion or pneum othorax. The heart size is normal. The endotracheal tube tip is 1.5 cm above the jaida. There is a l eft chest wall pacer with leads in the right atrium and right ventricle. The nasogastric tube tip is beyond the inferior margin of the radiograph, but at least to the stomach. IMPRESSION: 1. Chronic elevation of right hemidiaphragm with mild atelectasis at right lung base. 2. Mild pulmonary edema. Reviewed, dictated and finalized at location A. E [employer]UM M[employer]DER
--- NOTE | 2022-11-16 19:49 | PC.NURSE ---
Addendum entered by Jewell Malik RN 11/16/22 21:20: Correction patient's rhythm on residential monitor is paced. Original Note: 72yr, F presents to the ED via EMS from [facility] after being found unresponsive with agonal respirations. EMS attempted intubation on scene however unsuccessful at that time, I-gel placed and patient brought being bagged by EMS. Patient has strong femoral pulse. Patient moving extremities spontaneously. EMS did administer 8mg Versed for intubation attempt. Pupils fixed and dilated at this time. Decision made to intubation patient for definitive airway. Patient has 18g IV to left AC. Second 18 gauge IV established in patient's left hand by [facility] in ED. Patient sinus rhythm on monitor, patient attached to pads and crash cart in room.
[2022-11-16] MEDS: ETOMIDATE 20 MG/10 ML AMPUL IV PUSH (19:58)
--- NOTE | 2022-11-16 19:58 | PC.NURSE ---
Intubation started at 1957 Etomidate 20mg at 1957 Succinylcholine 100mg at 1958 Dr. Layton placed ETT with assistance from glidescope with one attempt at 1999. Positive colormetric color change at 2000 ETT at 7.5 established at 1999 Equal chest rise and fall presents with equal bilateral breath sounds OG placed at 65cm by [facility].
[2022-11-16] MEDS: SUCCINYLCHOLINE CHLORIDE 20 MG/ML 10 ML VIAL 100 MG IV PUSH (19:59)
--- NOTE | 2022-11-16 20:06 | ED.GENADULT ---
HPI - General Adult General Chief complaint: Altered Mental Status Stated complaint: unresponsive Time Seen by Provider: 11/16/22 19:50 History of Present Illness HPI narrative: Patient is a 72-year-old female who presents the emergency department with chief complaint of altered mental status patient was found on the ground at [facility] minimally responsive the patient is on a DOAC and had unequal pupils and unreactive pupils per EMS. Patient was last talked to around 4 to 5 PM Related Data Home Medications Medication Instructions Recorded Confirmed atorvastatin 40 mg tablet 40 mg PO HS 11/03/20 10/06/22 gabapentin 300 mg capsule 300 mg PO QID 11/03/20 10/06/22 acetaminophen 500 mg capsule 1,000 mg PO Q6H PRN Pain 12/09/21 10/06/22 aspirin 81 mg tablet,delayed 81 mg PO DAILY 12/09/21 10/06/22 release (Adult Aspirin Regimen) cholecalciferol (vitamin D3) 1,250 1,250 mcg PO [id number] 12/09/21 10/06/22 mcg (50,000 unit) capsule digoxin 125 mcg (0.125 mg) tablet 125 mcg PO EVERY OTHER DAY 12/09/21 10/06/22 fluticasone propionate 44 2 inh inhalation BID 12/09/21 10/06/22 mcg/actuation HFA aerosol inhaler (Flovent HFA) glucosamine sulfate 500 mg capsule 500 mg PO DAILY 12/09/21 10/06/22 mirabegron 25 mg tablet,extended 25 mg PO HS 12/09/21 10/06/22 release 24 hr (Myrbetriq) omeprazole 20 mg capsule,delayed 20 mg PO BID 12/09/21 10/06/22 release salmeterol 50 mcg/dose blister 1 inh inhalation Q12H 12/09/21 10/06/22 powder for inhalation (Serevent Diskus) apixaban 5 mg tablet (Eliquis) 5 mg PO BID 09/10/22 10/06/22 calcium 500 mg tablet 500 mg PO DAILY 09/10/22 10/06/22 hydrocodone 5 mg-acetaminophen 325 1 tablet PO HS PRN pain 09/10/22 10/06/22 mg tablet Allergies Allergy/AdvReac Type Severity Reaction Status Date / Time SAM Inhibitors Allergy Unknown Verified 09/16/22 10:57 Beta-Blockers Allergy Unknown Verified 09/16/22 10:57 (Beta-Adrenergic Bloc erythromycin base Allergy Unknown Verified 09/16/22 10:57 sulfamethizole Allergy Unknown Verified 09/16/22 10:57 Review of Systems Review of Systems: Unable to obtain due to altered mental status [facility] Past Medical History Medical History Acute on chronic blood loss anemia Asthma Atrial fibrillation On chronic anticoagulation with Eliquis. BMI 36.0-36.9,adult BMI greater than 30 Congestive heart failure Coronary artery disease Stent x 2 in [address] Manjinder Bueno. Current use of terminal block assembler anticoagulation On Eliquis for stroke prophylaxis given atrial fibrillation. Essential hypertension Hyperlipidemia Hypertension Hypertriglyceridemia Neuropathy Peripheral arterial disease Post-menopausal osteoporosis Rectal bleeding Urinary retention Vitamin D deficiency Surgical History Surgical History History of permanent cardiac pacemaker placement History of shoulder surgery Left shoulder arthroscopy. Family History Family History Father Arthritis Mother Diabetes mellitus Cancer Other Unknown family medical history Social History Social History Social History: The patient lives alone in [place] but is currently doing rehab as per HPI. Previously . Retired from [employer]. She has 3 grown children. No alcohol, tobacco, or illicit substance use. Her daughter, Elvia Elizalde, is listed as her emergency contact. Code status: Full code. Smoking status: Never smoker Alcohol intake: current Substance use: never Substance use type: does not use Living arrangements: assisted living Gender identity (if verbalized by the patient): Female Spiritual care concerns: No Exam Narrative: GENERAL: Ill-appearing unresponsive HEAD: Normocephalic, atraumatic. EYES:
[2022-11-16 20:09] LABS: Basophils Percent Auto 0.3 % (0.2-1.2); Eosinophils Percent Auto 0.5 % (0-4.4); Hematocrit 35.4 % (37.0-47.0); Hemoglobin 11.6 g/dL (12.0-15.0); Immature Granulocyte Absolute 0.06 K/mm3 (0.00-0.031); Immature Granulocyte Percent A 0.8 % (0-0.5); Lymphocytes Absolute Auto 0.68 K/mm3 (0.9-3.2); Mean Corpuscular HGB Conc 32.8 g/dl (32-36); Mean Corpuscular Hemoglobin 31.8 pg (26-34); Mean Platelet Volume 10.4 fl (7.4-10.4); Monocytes Absolute Auto 0.3 K/mm3 (0.1-0.6); Monocytes Percent Auto 4.2 % (2.6-8.5); Neutrophils Absolute Auto 6.5 K/mm3 (1.3-6.7); Neutrophils Percent Auto 85.2 % (45.5-73.1); Platelet Count Result 150 k/mm3 (150-375); Red Blood Count 3.65 M/mm3 (4.2-5.4); Red Cell Distribution Width 12.6 % (11.5-14.5); White Blood Count 7.6 K/mm3 (4.5-10.0)
[2022-11-16] MEDS: PROPOFOL IV EMULSION 100 ML 2.42 MG IV CONT (20:10)
[2022-11-16 20:20] LABS: INR 1.4; Prothrombin Time 16.4 Seconds (11.1-14.7)
[2022-11-16 20:21] LABS: Partial Thromboplastin Time 27.4 SECONDS (22.3-36.8)
[2022-11-16 20:27] LABS: Ethanol < 10 mg/dL (<10)
[2022-11-16 20:29] LABS: Triglycerides 143 mg/dL (<150)
[2022-11-16 20:30] LABS: Lactic Acid Reflex 1.3 mmol/L (0.7-2.0)
[2022-11-16 20:35] LABS: Alanine Aminotransferase 21 U/L (6-35); Albumin Level 4.5 g/dL (3.5-5.1); Alkaline Phosphatase 96 U/L (38-126); Anion Gap 6 mmol/L (8-16); Aspartate Amino Transferase 36 U/L (14-36); Blood Urea Nitrogen 17 mg/dL (7-17); Calcium 8.5 mg/dL (8.4-10.2); Carbon Dioxide 26 mmol/L (22-30); Chloride 105 mmol/L (98-107); Estimated Glomerular Filt Rate > 60; Glucose 130 mg/dL (65-110); Magnesium 1.5 mg/dL (1.6-2.3); Potassium 4.3 mmol/L (3.4-5.0); Sodium 137 mmol/L (137-145)
[2022-11-16 20:40] LABS: Troponin I 0.018 ng/mL (0.000-0.034)
[2022-11-16 21:05] LABS: Appearance Urine Clear (Clear); Bilirubin Urine Negative (Negative); Blood Urine Trace-lysed (Negative); Color Urine Yellow (Yellow); Glucose Urine UA Negative (Negative); Ketones Urine Negative (Negative); Leukocyte Esterase Ur Negative LEU/UL (Negative); Nitrate Urine Negative (Negative); Protein Urine 2+ mg/dL (Negative); Specific Grav Ur 1.015 (1.001-1.035); Urobilinogen Urine 0.2 mg/dL (<2.0)
[2022-11-16] MEDS: HUMAN PROTHROMBIN COMPLEX IV CONT (21:10)
[2022-11-16] MEDS: levETIRAcetam 1000MG/NACL100ML 1,000 MG/100 ML BAG 400 MG IVPB (21:10)
[2022-11-16] MEDS: PREMIXIV IV CONT (21:10)
[2022-11-16 21:11] LABS: RBC Urine 0-2 /hpf (0-2); WBC Urine 0-3 /hpf
[2022-11-16 21:13] LABS: Add Urine Microscopic? YES
[2022-11-16] MEDS: MANNITOL 20% 100 ML 200 ML IV CONT (21:32)
[2022-11-16 21:33] LABS: Amphetamine Screen Urine Negative (Negative); Barbiturate Screen Urine Negative (Negative); Benzodiazepines Screen Urine Positive (Negative); Cannabinoid Screen Urine Negative (Negative); Cocaine Screen Urine Negative (Negative); Methadone Screen Urine Negative (Negative); Opiate Screen Urine Negative (Negative); Phencyclidine Screen Urine Negative (Negative)
[2022-11-16 21:42] LABS: Influenza A QL RT-PCR Negative (Negative); Influenza B QL RT-PCR Negative (Negative); RSV RNA, RT-PCR Negative (Negative); SARS-CoV-2 RNA PCR Negative
--- NOTE | 2022-11-16 21:51 | PC.NURSE ---
Patient care report given to [employer] flight crew. All questions answered at this time. Patient switched over to [employer] monitors and [employer]'s ventilator for transport. Patient chart given to flight crew. Patient taken on [employer] stretcher to helicopter for transport to [facility]. Care turned over to [employer] flight crew.
--- NOTE | 2022-11-16 22:00 | PC.NURSE ---
2151 Mannitol sent with flight crew for administration.
== END 2022-11-16 22:01 | disposition short-term general hospital (02) ==
PROVIDERS: Emergency Provider Emergency Medicine; PCP Family Medicine
DX: I62.01 Nontraumatic acute subdural hemorrhage (principal); Z20.822 Contact with and (suspected) exposure to COVID-19; I48.91 Unspecified atrial fibrillation; J45.909 Unspecified asthma, uncomplicated; I50.9 Heart failure, unspecified; I25.10 Atherosclerotic heart disease of native coronary artery without angina pectoris; I11.0 Hypertensive heart disease with heart failure; E78.5 Hyperlipidemia, unspecified; E78.1 Pure hyperglyceridemia; I73.9 Peripheral vascular disease, unspecified; G62.9 Polyneuropathy, unspecified; E55.9 Vitamin D deficiency, unspecified; Z95.5 Presence of coronary angioplasty implant and graft; Z95.0 Presence of cardiac pacemaker; Z79.01 Long term (current) use of anticoagulants; Z79.82 Long term (current) use of aspirin; Z79.899 Other long term (current) drug therapy
CPT/HCPCS: 31500; 36415; 70450; 72125; 80053; 80307; 81001; 83605; 83735; 84478; 84484; 85025; 85610; 85730; 87637; 96365; 96367; 96375; 99291; J0330; J1953; J2704; J7168